=== PATIENT | female | born 1970 | race Caucasian/White ===

== ENCOUNTER 2023-06-16 13:33 | Outpatient (OUT) | payer SELFPAY ==
--- NOTE | 2023-06-16 | XR_ITS ---
The [address] [address] Patient Name: ANDREW LEVY MRN: [id number] date: 1970 Sex: F Assigned Patient Location: Current Patient Location: Accession/Order Number: [id number] Exam Date: 06/16/2023 13:36 Report Date: 06/16/2023 16:44 At the request of: WOODY MENA Procedure: XR foot LT min 3V EXAM: XR foot LT min 3V HISTORY: LEFT FOOT PAIN COMPARISON: None. TECHNIQUE: 3 views of the left foot were obtained. FINDINGS/IMPRESSION: 1. There is an acute minimally displaced fracture at the distal diaphysis of the third metatarsal bone. 2. There is subchondral erosions at the second metatarsophalangeal joint and at the third, fourth and fifth proximal interphalangeal joints. This has appearance of psoriatic arthritis. Clinical correlation is recommended. 3. Mild to moderate polyarticular osteoarthritis. Electronically authenticated by: NICHOLE RENDON Date: 06/16/2023 16:44
== END 2023-06-16 13:34 | disposition home or self-care (01) ==
LOC: EC 13:33
PROVIDERS: Visit Provider Physician Assistant
DX: M79.672 Pain in left foot (principal); S92.332A Displaced fracture of third metatarsal bone, left foot, initial encounter for closed fracture
CPT/HCPCS: 73630

== ENCOUNTER 2025-04-17 08:44 | Outpatient (OUT) | payer OTHER, SELFPAY ==
--- OUTSIDE RECORDS SUMMARY | 2024-07-18 06:45 | XMS_ITS ---
Author Organization [facility] es Address [address] [place] [address] Care Team Providers Care Feed Weigher Name Role Phone Alexandra Morales Primary Care Provider Unavailabl e XXXMorris-Pat, Macey Unavailable [phone] Hilary Lemus Unavailable [phone] REASON FOR VISIT FU Encounters Encounter Location Date Provider Diagnosis [facility] [address] [place] [address] 07/18/2024 Hilary Lemus Plan Of Treatment No Information Progress Notes * ANDREW NOLEN SDOB:0 1970 (54 yo F)Acc No.[id number]:07/18/2024 Behavioral Health Patient: Veronica BRADY ANDREW Lucille :?Hilary LemusDOB:1970???Age:53 Y???Sex:Female Date:07/18/2024Phone:[phone]:[address] [facility] [place], [id number]:Alexandra Morales Subjective: * Chief Complaints: * B H FU Billing Information: * Procedure Codes: * Electronic signature of DUYEN Castillo on 04/17/2025 at 08:46 AM ESTSign off status: Pending * Provider: Genevieve Lemus Date: 0 07/18/2024 Generated for Printing/Faxing/eTransmitting on:?04/17/2025 08:46 AM EST
--- OUTSIDE RECORDS SUMMARY | 2024-11-06 04:15 | XMS_ITS ---
Author Organization The [facility] in [place] Address [address] [place] [address] Care Team Providers Care Assistant Sales Manager Name Role Phone Gama East DO Primary Care Provider Unavailabl e Provider, Radiology Unavailable [phone] Encounters Encounter Location Date Provider Diagnosis Radiology [address] [address] 11/06/2024 Radiology Provider Plan Of Treatment No Information Progress Notes * Kristan LEVY SDOB:[birth year] (54 yo F)Acc No.[id number]:11/06/2024 UNLOCKED PROGRESS NOTE Progress Note Patient: Mark LIUKristan Lucille :?Radiology ProviderDOB:1970???Age:54 Y ???Sex:FemaleDate:11/06/2024External Visit ID:[id number]:[phone] Address:[address] [id number]:Kannan Davis Out:09:14 AM EST Subjective: * Chief Complaints: * * Active Problem List M20.22 Hallux rigidus, left foot Modified On:06/16/2023W/U Status:kdhmzrgcnV07.079Primary osteoarthritis, unspecified ankle and foot Modified On:06/16/2023/U Status:rohsbkefyN66.42Other hammer toe(s) (acquired), left foot Modified On:04/25/2024W/U Status:kcxywaefpO21.12Hallux valgus (acquired), left foot Modified On:04/25/2024 Status:rhrvvcpivH95.275Osteonecrosis due to previous trauma, left foot Modified On:04/25/2024 Status:spfakjzyaO49.72Freibergs disease, left Modified On:06/07/2024 Status:sonvcjyhgY04.572Contracture, left ankle Modified On:09/25/2024 Status:withcitryO17.575Contracture, left foot Modified On:09/25/2024 Status:uclhvmmwjU21.875Other osteonecrosis, left foot Modified On:10/15/2024 Status:mtwmblzadC62.072Primary osteoarthritis, left ankle and foot Modified On:10/15/2024 Status:dgmrgegxzU61.572Muscle wasting and atrophy, not elsewhere classified, left ankle and foot Modified On:10/15/2024 Status:hjasbchbbF41.325KNondisplaced fracture of second metatarsal bone of left foot with nonunion Modified On:02/19/2025 Status:ylfdmthlgD61.9Elevated parathyroid hormone Modified On:02/28/2025 Status:confirmed * Medical History: Objective: * Vitals: Assessment: Plan: * Treatment: * * Electronic signature of Radiology Provider on 04/17/2025 at 08:46 AM ESTSign off status: PendingVisit Status:?CHK (Check Out) * Provider: R adiology Provider Date: 0 11/06/2024 Generated for Printing/Faxing/eTransmitting on:?04/17/2025 08:46 AM EST
--- OUTSIDE RECORDS SUMMARY | 2025-01-15 04:40 | XMS_ITS ---
Author Organization The [facility] in [place] Address [address] [place] [address] Care Team Providers Care Glue Drier Operator Name Role Phone Gama East DO Primary Care Provider Unavailabl e Provider, Radiology Unavailable [phone] Encounters Encounter Location Date Provider Diagnosis Radiology [address] [address] 01/15/2025 Radiology Provider Plan Of Treatment No Information Progress Notes * Kristan LEVY SDOB:[birth year] (54 yo F)Acc No.[id number]:01/15/2025 UNLOCKED PROGRESS NOTE Progress Note Patient: Mark LIUKristan Lucille :?Radiology ProviderDOB:1970???Age:54 Y ???Sex:FemaleDate:01/15/2025External Visit ID:[id number]:[phone] Address:[address] [id number]:Gama East DO Subjective: * Chief Complaints: * * Active Problem List M20.22 Hallux rigidus, left foot Modified On:06/16/2023W/U Status:rdaoampchZ78.079Primary osteoarthritis, unspecified ankle and foot Modified On:06/16/2023W/U Status:adpfjfyxnB50.42Other hammer toe(s) (acquired), left foot Modified On:04/25/2024W/U Status:rywsbjcekO89.12Hallux valgus (acquired), left foot Modified On:04/25/2024 Status:lipiohoekP89.275Osteonecrosis due to previous trauma, left foot Modified On:04/25/2024 Status:jfeeublanR52.72Freibergs disease, left Modified On:06/07/2024 Status:kquucjrdnS15.572Contracture, left ankle Modified On:09/25/2024 Status:gslcugvcmC79.575Contracture, left foot Modified On:09/25/2024 Status:ythgredmxS72.875Other osteonecrosis, left foot Modified On:10/15/2024 Status:cjouwbxzwR13.072Primary osteoarthritis, left ankle and foot Modified On:10/15/2024 Status:vzkruvmfrF11.572Muscle wasting and atrophy, not elsewhere classified, left ankle and foot Modified On:10/15/2024 Status:ydqggbkzvZ11.325KNondisplaced fracture of second metatarsal bone of left foot with nonunion Modified On:02/19/2025 Status:zvuilsqejK10.9Elevated parathyroid hormone Modified On:02/28/2025 Status:confirmed * Medical History: Objective: * Vitals: Assessment: Plan: * Treatment: * * Electronic signature of Radiology Provider on 04/17/2025 at 08:46 AM ESTSign off status: PendingVisit Status:?CHK (Check Out) * Provider: R adiology Provider Date: 0 01/15/2025 Generated for Printing/Faxing/eTransmitting on:?04/17/2025 08:46 AM EST
--- OUTSIDE RECORDS SUMMARY | 2025-01-15 04:40 | XMS_ITS ---
Author Organization The [facility] in [place] Address [address] [place] [address] Care Team Providers Care Traffic Maintenance Supervisor Name Role Phone Gama East DO Primary Care Provider Unavailabl e Provider, Radiology Unavailable [phone] Encounters Encounter Location Date Provider Diagnosis Radiology [address] [address] 01/15/2025 Radiology Provider Plan Of Treatment No Information Progress Notes * Kristan LEVY SDOB:[birth year] (54 yo F)Acc No.[id number]:01/15/2025 UNLOCKED PROGRESS NOTE Progress Note Patient: Mark LIUKristan Lucille :?Radiology ProviderDOB:1970???Age:54 Y ???Sex:FemaleDate:01/15/2025Phone:[phone]:[address] [id number]:Kannan Davis Out:09:42 AM EST Subjective: * Chief Complaints: * * Active Problem List M20.22 Hallux rigidus, left foot Modified On:06/16/2023W/U Status:yuzxyyipzY95.079Primary osteoarthritis, unspecified ankle and foot Modified On:06/16/2023W/U Status:sfbfqsibdS33.42Other hammer toe(s) (acquired), left foot Modified On:04/25/2024W/U Status:nyqwxnmatO97.12Hallux valgus (acquired), left foot Modified On:04/25/2024 Status:mzxtiiaceC55.275Osteonecrosis due to previous trauma, left foot Modified On:04/25/2024 Status:iuuwbifyrL11.72Freibergs disease, left Modified On:06/07/2024 Status:upmpjaenyL87.572Contracture, left ankle Modified On:09/25/2024 Status:zlvukrgfiC96.575Contracture, left foot Modified On:09/25/2024 Status:gefekrcneI00.875Other osteonecrosis, left foot Modified On:10/15/2024 Status:yiszsdbiwN05.072Primary osteoarthritis, left ankle and foot Modified On:10/15/2024 Status:uwzrzywroV23.572Muscle wasting and atrophy, not elsewhere classified, left ankle and foot Modified On:10/15/2024 Status:robqhqhyjL59.325KNondisplaced fracture of second metatarsal bone of left foot with nonunion Modified On:02/19/2025 Status:hglyplaleB61.9Elevated parathyroid hormone Modified On:02/28/2025 Status:confirmed * Medical History: Objective: * Vitals: Assessment: Plan: * Treatment: * * Electronic signature of Radiology Provider on 04/17/2025 at 08:46 AM ESTSign off status: PendingVisit Status:?CHK (Check Out) * Provider: R adiology Provider Date: 0 01/15/2025 Generated for Printing/Faxing/eTransmitting on:?04/17/2025 08:46 AM EST
--- OUTSIDE RECORDS SUMMARY | 2025-02-05 05:15 | XMS_ITS ---
Author Organization The [facility] in [place] Address [address] [place] [address] Care Team Providers Care Indigo Mixer Name Role Phone Gama East DO Primary Care Provider Unavailabl Danish Neri Unavailable [phone] REASON FOR VISIT Go over CT Scan from [facility] Encounters Encounter Location Date Provider Diagnosis [facility] [address] [place] [address] 02/05/2025 Danish Carrillo Plan Of Treatment No Information Progress Notes * Kristan HUTTON SDOB:[birth year] (54 yo F)Acc No.[id number]:02/05/2025 UNLOCKED PROGRESS NOTE Follow Up Patient: Mark LIU Kristan Lucille :?ONEAL EdmondsMDOB:1970???Age:54 Y ???Sex:FemaleDate:02/05/2025Phone:[phone]:[address] [id number]:Gama East DO Subjective: * Chief Complaints: * [address] Scan from [facility]. * Medical History: Objective: * Vitals: Assessment: Plan: * Treatment: * * Electronic signature of Danish Carrillo DPM, [id number] on 04/17/2025 at 08:47 AM ESTSign off status: PendingVisit Status:?R/S (Rescheduled) * Provider: Ran Carrillo DPM Date: 1 Generated for Printing/Faxing/eTransmitting on:?04/17/2025 08:47 AM EST
--- OUTSIDE RECORDS SUMMARY | 2025-02-12 05:45 | XMS_ITS ---
Author Organization The [facility] in [place] Address [address] [address] Care Team Providers Care Preparation Plant Supervisor Name Role Phone Gama East DO Primary Care Provider Unavailabl Danish Neri Unavailable [phone] REASON FOR VISIT Go over CT Scan from [facility] Encounters Encounter Location Date Provider Diagnosis [facility] [address] [place] [address] 02/12/2025 Danish Carrillo Plan Of Treatment No Information Progress Notes * Kristan HUTTON SDOB:[birth year] (54 yo F)Acc No.[id number]:02/12/2025 UNLOCKED PROGRESS NOTE Follow Up Patient: Mark LIU Kristan Lucille :?ONEAL EdmondsMDOB:1970???Age:54 Y ???Sex:FemaleDate:02/12/2025Phone:[phone]:[address] [id number]:Gama East DO Subjective: * Chief Complaints: * [address] Scan from [facility]. * Medical History: Objective: * Vitals: Assessment: Plan: * Treatment: * * Electronic signature of Danish Carrillo DPM, [id number] on 04/17/2025 at 08:47 AM ESTSign off status: PendingVisit Status:?R/S (Rescheduled) * Provider: Ran Carrillo DPM Date: 1 Generated for Printing/Faxing/eTransmitting on:?04/17/2025 08:47 AM EST
--- OUTSIDE RECORDS SUMMARY | 2025-02-19 06:45 | XMS_ITS ---
Author Organization The [facility] in [place] Address [address] [place] [address] Care Team Providers Care Enrollment Services Vice President Name Role Phone Gama East DO Primary Care Provider Unavailabl e Provider, Lab Unavailable [phone] REASON FOR VISIT cac Encounters Encounter Location Date Provider Diagnosis [facility] [address] [place] [address] 02/19/2025 Lab Provider Plan Of Treatment No Information Progress Notes * Kristan LEVY SDOB:[birth year] (54 yo F)Acc No.[id number]:02/19/2025 UNLOCKED PROGRESS NOTE Progress Note Patient: Kristan RAO :?Lab ProviderDOB:1970???Age:54 Y???Sex: FemaleDate:02/19/2025Phone:[phone]:[address] [id number]:Kannan Davis Out:11:47 AM EST Subjective: * Chief Complaints: * 1 . Cac. * Medical History: Objective: * Vitals: Assessment: Plan: * Treatment: * * Electronic signature of Lab Provider on 04/17/2025 at 08:46 AM ESTSign off status: PendingVisit Status:?CHK (Check Out) * Provider: Guanako mckeon Provider Date: 04/21/2024 Generated for Printing/Faxing/eTransmitting on:?04/17/2025 08:46 AM EST
--- OUTSIDE RECORDS SUMMARY | 2025-04-10 09:15 | XMS_ITS | Encounter Summary ---
Author Organization [facility] Address [address] [place] [address] Care Team Providers Care Safety Engineer Pressure Vessels Name Role Phone Gama East DO Primary Care Provider [phone] Reason for Visit * ReasonCommentsPrimary hyperparathyroidismDEXA results Encounter Details DateTypeDepartmentCare Team (Latest Contact Info)Gkslympjekn01/24/2025 9:15 AM ESTOffice Visit [facility] [address] [place] [address] Yrn Tolentino DO [address] [place] [place] [address] Osteopenia of right forearm (Primary Dx) Social History Tobacco UseTypesPacks/DayYears UsedDateSmoking Tobacco: NeverPassive Smoke Exposure: NeverSmokeless Tobacco: Never Tobacco Cessation:Counseling Given: Not Answered Alcohol UseStandard Drinks/WeekCommentsYes1 (1 standard drink = 0.6 oz pure alcohol)caffeine intake: 1-2 cups per dayAUDIT-CAnswerDate RecordedQ1: How often do you have a drink containing alcohol?Monthly or less05/09/2023Q2: How many drinks containing alcohol do you have on a typical day when you are drinking?1 or Q3: How often do you have six or more drinks on one occasion?Never 05/09/2023HQ-2AnswerDate RecordedPatient Health Questionnaire-2 Score0 4CommentsNoSex and Gender InformationValueDate RecordedSex Assigned at BirthNot on fileLegal XkxVuddat05/15/2023 8:23 PM EDTGender Identity Not on fileSexual OrientationNot on filedocumented as of this encounter Last Filed Vital Signs Vital SignReadingTime TakenCommentsBlood Pressure--Pulse--Temperature-- Respiratory Rate--Oxygen Saturation--Inhaled Oxygen Concentration--Xrvrzw21.4 kg (175 lb)04/10/2025 9:13 AM AGKWclrle683.7 cm (5' 8 )04/10/2025 9:13 AM ESTBody Mass Index26.6104/10/2025 9:13 AM ESTdocumented in this encounter Progress Notes * Yrn Tolentino DO - 04/10/2025 9:15 AM EST HPI Patient presents today following DEXA scanning. It shows she has mild osteopenia both from the femoral as well as radial testing sites. I made her aware of that. Relevant postoperative physical examination Unremarkable Assessment/plan Kristan was seen today for primary hyperparathyroidism. Diagnoses and all orders for this visit: Osteopenia of right forearm (Primary) Comments: again, I am not convinced this patient has primary hyperparathyroidism. She may have a fluctuating hyperactive gland. Orders: - PTH, intact; Future - Calcium; Future - Vitamin D 25 hydroxy Total; Future - PTH, intact - Calcium - Vitamin D 25 hydroxy Total At this point she does not meet criteria for parathyroidectomy. I am going do recheck her in 6 months with lab work. I have told her to start taking some pmhi-fgg-bujhply calcium. documented in this encounter Plan of Treatment DateTypeDepartmentCare Team (Latest Contact Info)Qnaixfhtahz98/01/2026 2:00 PM EDTOffice Visit [facility] [address] [place] [address] Yrn Tolentino DO [address] [place] [address] NameTypePriorityAssociated DiagnosesOrder SchedulePTH, intactLabRoutine Osteopenia of right forearm Expected: 10/09/2025 (Approximate), Expires: 04/10/2026alciumLabRoutine Osteopenia of right forearm Expected: 10/09/2025 (Approximate), Expires: 04/10/2026Vitamin D 25 hydroxy TotalLabRoutine Osteopenia of right forearm Expected: 10/09/2025 (Approximate), Expires: 04/10/2026documented as of this encounter Visit Diagnoses Diagnosis Osteopenia of right forearm- Primary documented in this encounter Care Teams Team MemberRelationshipSpecialtyStart DateEnd Date Gama East DO [address] [place] [address] PCP - General09/21/22documented as of this encounter
--- OUTSIDE RECORDS SUMMARY | 2025-04-15 11:47 | XMS_ITS | Continuity of Care Document ---
Author Organization [facility] Address [address] [place] [address] Phone Care Team Providers Care Fire Alarm Mechanic Name Role Phone Mast, Gama DO Primary Care Provider Yrn Tolentino DO Attending Provider [phone] Mast, Gama DO Attending Provider [phone] Care Teams Patient Care Team Team Status: Active Member Role/Relationship Status Dates Gama Mast , DO Primary Care Provider Active Visit Care Team Team Status: Inactive Member Role/Relationship Status Dates Gama Mast , DO Primary Care Provider Active Star t: March 20, 2025 End: March 20enjamin Murcek , DOAttending ProviderActiveStart: March 20, 2025 End: March 20, 2025 Visit Care Team Team Status: Inactive Member Role/Relationship Status Dates Gama Mast , DO Primary Care Provider Active Star t: March 20, 2025 End: March 20enjamin Murcek , DOAttending ProviderActiveStart: March 20, 2025 End: March 20, 2025 Visit Care Team Team Status: Inactive Member Role/Relationship Status Dates Gama Mast , DO Primary Care Provider Active Star t: March 22, 2025 End: March 22enjamin Murcek , DOAttending ProviderActiveStart: March 22, 2025 End: March 22, 2025 Visit Care Team Team Status: Inactive Member Role/Relationship Status Dates Gama Mast , DO Primary Care Provider Active Star t: April 08, 2025 End: April 08leidykarla Tolentino DOAttending ProviderActiveStart: April 08, 2025 End: April 08, 2025 Patient Care Team Team Status: Inactive Member Role/Relationship Status Dates Gama East DO Primary Care Provider Active Star t: April 15, 2025 End: April 15, 2025Gama East DOAttending ProviderActiveStart: April 15, 2025 End: April 15, 2025 Chief Complaint and Reason for Visit Chief Complaint Admit Date E21.0 March 20, 2025 8 :05am E21.0 March 20, 2025 9 :34am E21.0 March 22, 2025 2 :00pm hyperparathyroidism April 08, 2025 10:35am Hormone issues April 15, 2025 3:22pm Reason for Visit Admit Date Obesity (BMI 30-39.9) April 15 3:22pm Right shoulder strain April 15 3:22pm Allergies, Adverse Reactions, Alerts Allergen Type Severity Reaction Last Updated Verified Status No Known Allergies Allergy Unknown April 15, 2025 3:29pmYesActive Social History Smoking Status Status Start Date End Date Date of Observa tion Never smoked tobacco (finding) June 19, 2024 12:42pm Observation Status Observation Response Date of Response Legal Sex [facility] (finding) [facility] 1970 Family History Relationship Condition Age at Onset Recorded Date/T eloina father Heart disease Unknown family memberDeceasedUnknownmotherHeart diseaseUnknown Problems Active Problems Problem Diagnosis/Recorded Date Onset Date Stat PTSD (post-traumatic stress disorder) January 06, 2024 11:37am Unknown Active Encounter for immunization March 12, 2024 9:21am Unknown Active Strain of lumbar region January 28, 2017 12:55pm Unk nown Active Acute maxillary sinusitis July 25, 2023 10:10am Unkn own Active Upper respiratory infection 2024 8:15am Unkn own Active Dog bite January 05, 2021 11:15am Unknown Active Anxiety January 05, 2021 10:49am Unknown Active BMI 25.0-25.9,adult July 20, 2024 8:16am Unknown Active Anxiety and depression January 06, 2024 11:37am Un known Active Left foot pain March 30, 2024 9:05am Unknown Active Right shoulder strain April 15, 2025 3:58pm Unkno wn Active Fibula fracture January 17, 2022 3:11pm Unknown Active Obesity (BMI 30-39.9) April 15, 2025 3:58pm Unkno wn Active Inactive/Resolved Problems Problem Diagnosis/Recorded Date Onset Date Stat us Dog bite June 19, 2024 2:56pm Unknown Resol rosalina Medications Medication Status Dose Units Route Directions Qty Days Refills S tart Date Stop Date End Date Reason(s) Instructions Adherence Semaglutide (Ozempic) 0.25 mg or 0.5 mg (2 mg/3 mL) pe n injector Discontinued 0 .ROUTE.TCYWOMQ61Dbg2023 5:55amMay 2023 2:41pmINJECT 0.5 MG SUBCUTANEOUS ONCE WEEKLYSemaglutide (Ozempic) 0.25 mg or 0.5 mg (2 mg/3 mL) pen injectorDiscontinued0.ROUTE.2023 2:41pmSeptember 02, 2023 7:09am INJECT 0.5 MG SUBCUTANEOUS ONCE WEEKLYSemaglutide 1 mg/dose (4 mg/3 mL) pen kjaizyadCsicoqhsfhtt9BA.ROUTEevery 2023 7:08amAugust 2023 4:53pm1 mg every week;Venlafaxine 150 mg capsule,extended release 24hr Discontinued0.ROUTE.IACZNBE756Utnz2023 8:41amNoveer 2023 9:15am TAKE 1 CAPSULE BY MOUTH EVERY DAY WITH FOODVenlafaxine 75 mg capsule,extended release 03rbTjfxfxjagbow6.ROUTE.RBWDNPP619Gida2023 7:02amDecember 2023 7:26amTAKE 1 CAPSULE BY MOUTH EVERY DAY WITH FOODBupropion Hcl 300 mg tablet extended release 24 hrDiscontinued0.ROUTE.2023 7:02amDecemb2023 7:26amTAKE 1 TABLET BY MOUTH EVERY DAY IN THE MORNING Semaglutide 1 mg/dose (4 mg/3 mL) pen bpekgqcdYnqnlqmmfnrb0GF.ROUTEevery December 05, 2023 4:53pmSept2023 11:39am1 mg every week;Prazosin 1 mg capsuleDiscontinued0.ROUTE.BXQNDDV508Zibflxy 2023 5:44amNovember 2023 9:15amTAKE 1 CAPSULE BY MOUTH EVERY DAY AT BEDTIMEVenlafaxine 75 mg capsule,extended release 99bbDufrmffrxsbj1.ROUTE.OHAYZQB268Emtwahwj2023 7:25amMarch 2024 7:11amTAKE 1 CAPSULE BY MOUTH EVERY DAY WITH FOOD Bupropion Hcl 300 mg tablet extended release 24 hrDiscontinued0.ROUTE.RMCZOMT217 March 22, 2024 7:25amMarch 2024 7:11amTAKE 1 TABLET BY MOUTH EVERY DAY IN THE MORNINGAlprazolam 0.25 mg tabletDiscontinued0.25MGPODaily as needed for bwzwktt97799Usabbqqp 9th, 2024 10:22amJune 2024 11:26amAnxiety Anxiety disorder, unspecifiedVenlafaxine 75 mg capsule,extended release 24hr Discontinued0.ROUTE.KMWYMUD564XfsyhJune 28, 2024 7:11amSept2024 7:24am TAKE 1 CAPSULE BY MOUTH EVERY DAY WITH FOODBupropion Hcl 300 mg tablet extended release 24 hrDiscontinued0.ROUTE.INFEQKD135PcfcoJune 28, 2024 7:11amSeptember 2024 7:24amTAKE 1 TABLET BY MOUTH EVERY DAY IN THE MORNINGPrazosin 2 mg capsule Ljeodimzyojd3TKSCHcaeu at igckzyh460Ife 2024 5:53amNovember 2024 11:15amVenlafaxine 150 mg capsule,extended release 81qtQrrzcmxjsdhd729ZAOJAutsh 90June 2024 7:33amDecember 2024 6:53amBupropion Hcl 300 mg tablet extended release 24 hrActive0.ROUTE.TJDNIHU932Uidpzdbww2024 7:23amTAKE 1 TABLET BY MOUTH EVERY DAY IN THE MORNINGComplies with drug therapyVenlafaxine 75 mg capsule,extended release 03gqQkvwux2.ROUTE.CHDTESO213Ymezjvmii2024 7:23amTAKE 1 CAPSULE BY MOUTH EVERY DAY WITH FOODComplies with drug therapy Prazosin 2 mg zffufqkMbkltz3GKTSYlxhg at fuusrhj693Qlphihun 2024 11:15am Complies with drug therapyVenlafaxine 150 mg capsule,extended release 24hrActive 101PJFPPefwh343Tfbubnsd 2024 6:53amComplies with drug therapyAlprazolam (Xanax) 0.5 mg tabletDiscontinued0.5MGPODaily at bedtimeJuly 2017 11:00pm July 29, 2018 7:02pmBupropion Hcl 300 mg tablet extended release 24 hr Dwoqsxgtiowu578MBLTUqrqrGtqz 2017 11:00pmAugust 2023 7:03amMagnesium Hydroxide (Milk Of Magnesia) 400 mg/5 mL QzusgallpmQygksltfuzpn7DZUYSGEsjim as needed for ConstipationJuly 2017 11:00[facility] 2023 9:46amFerrous Sulfate 325 mg (65 mg iron) xonyslBwdkkkajteto4PUJTBUmmaf dailyJuly 2017 11:00[facility] 20[facility] 8:55amFolic Acid 1 mg ooarewMjurnbrqzmgd7GGFGUtmsv times dailyJuly 2017 11:00[facility] 2023 9:40amOxycodone- Acetaminophen (Percocet) 5-325 mg tabletDiscontinued1 - 2CDWULU7O as needed for thva797Fxun 2017[facility] 2023 9:39amOther acute postprocedural painMay take 1-2 tabs q 6 hours prn painIbuprofen 800 mg izscrdVzmmsselzegf587PLERNsxwu times cvlfs219Aaeli 2018 11:00pm[facility] 2023 9:46amAmoxicillin-Pot Clavulanate (Augmentin) 875-125 mg svuzjjThpjzdnutmjw4LJJJJWleag cnzct75796 January 04, 2021 11:00pmOhio[facility] 2023 9:34amAmoxicillin-Pot Clavulanate 875-125 mg tkttgdNfteaxmcofks1HTPHKEwshh clcam593Whazg 2024 12:00amApril 2024 7:48amHydrocodone-Acetaminophen 5-325 mg zinoljEsxyyfkdlfbm8IWYHSWZSKG 4-6 HOURS as needed for hsfl105Tdvgy pril 2024 7:49amDog bite Bitten by dog, initial gesffomjyAfknfeux-Arc-Iofphoe Fumarate (Multi Vitamin) 9 mg iron/15 mL LiquidDiscontinuedPODailyOctober 2016 11:00pmOctober 2016 11:46hwGrladmribbrz-Pkop-Cmgfi Acid (Multi-Day With Iron) 18-400 mg-mcg NgvoioArspdq7BNZVFWnxqzZjrkwvh 2016 11:00pmComplies with drug therapy Cyclobenzaprine 10 mg jsyyymZajyiduautri76EFCJZbopk times zxlfu096Tyxwldo 12th, 2017 11:00pmMar 2023 9:46amOxycodone-Acetaminophen (Percocet) 5-325 mg zayefiKwwumtmquzqt1BKOGCIEWCL 4-6 HOURS as needed for nypw308Dfbfkpm 2016October 19, 2017 8:43amNaproxen (Naprosyn) 500 mg vimjyiAnjqkpsncicd823ZJJXUeakw efsgg677Ughvffw 12th, 2017 11:00pmMar 2023 9:46amadminister with food or milkOxycodone-Acetaminophen (Endocet) 5-325 mg ldbljlMqjxxhqrckos6SOHKKT6M as needed for xvbl4611Vincdmj 2nd, 2022March 2023 9:39amFracture of fibula Amoxicillin-Pot Clavulanate 875-125 mg cbzcisBlvjqxpiuvgq3ARDJHPureb tyhqr566 July 24, 2023 11:00pmSeptember 2023 8:56amPrazosin 1 mg capsule Fecncmmqppwk0IPFUDxoih at fseezon897Jlgnmvshj 2023 11:00pmSeptember 2023 11:49amDiclofenac Sodium (Voltaren Arthritis Pain) 1 % maiKdkbax2FACJJRC .COMPLEX as needed for tvvv6451Xyoibmvpf 20th, 2024 11:46amApply 1-2 grams to the affected Externally 4-5 times a day topically prn painComplies with drug therapyAlprazolam 0.25 mg tabletDiscontinued0.25MGPODaily as needed for anxiety 71021Mqxiwtqta2023 11:48amDecember 2023 10:23amAnxiety Anxiety disorder, unspecifiedPrazosin 1 mg zryzkcdTmzagsqxwbqf4XWJETvqlh at tldimae332Gpfzokqpm 20th, 2024 11:49amOctober 2023 5:44amSemaglutide (Ozempic) 0.25 mg or 0.5 mg (2 mg/3 mL) pen injectorDiscontinuedMGSUBCUTMarch 12, 2024 12:00amNovember 2023 8:55amCholecalciferol (Vitamin D3) 25 mcg (1,000 unit) rfblsyoOpznbfvfdxnw24YHTOLQwyltXcdqmgfj 25th, 2024 12:00amApril 2024 7:49amAspirin 81 mg tablet,delayed release (DR/EC)Sdubrlbtoipg20IQOT DailyMarch 12, 2024 12:00amApril 2024 7:50amFreeTextSi tablet Orally Once a day; Note: Source Status: Not-Taking\PRN; Provider: Cruzito Malloy ( )Prazosin 2 mg vmybexxHymsbhrnpfqk2MFEPGtoyf at March 12, 2024 9:14amMay 2024 5:53amVenlafaxine 150 mg capsule,extended release 37mnZddgrvbcpujw200CLOHSpkve458Dfndotbx 25th, 2024 9:15amJune 2024 7:34amAlprazolam 0.25 mg tabletDiscontinued0.25MGPOMarch 2023 12:00amSept2023 9:40amFreeTextSig: TAKE 1 TABLET BY MOUTH ONCE A DAY NEEDED; Note: Source Status: Taking; Refills: 0; Qty: 20 Tablet; Provider: Cruzito Malloy ( )Venlafaxine 150 mg capsule,extended release 88xlFutwdomfeiyp883CZDISpiia 2023 12:00amJun2023 8:42am FreeTextSig: TAKE 1 CAPSULE BY MOUTH EVERY DAY WITH FOOD; Note: Source Status: Continue; Provider: Cruzito Malloy ( )Venlafaxine 75 mg capsule,extended release 47gmQoasdmibqwhv00FBLIEhgdnRhnxe 2023 12:00amJune 2023 7:02amFreeTextSi capsule with food Orally Once a day; Note: Source Status: Start; Refills: 1; Qty: 90Capsule; Provider: Cruzito Putnam Semaglutide (Ozempic) 0.25 mg or 0.5 mg (2 mg/3 mL) pen injectorDiscontinuedMG SUBCUTMarch 2023 12:00amMarch 2023 9:47amFreeTextSi.5 mg Subcutaneous once q week; Note: Source Status: Refill; Refills: 2; Provider: Facundo Malloy EScopolamine Base 1 mg over 3 days patch 3 dayDiscontinuedTRANSDERMLMar 2023 12:00amMarch 2023 9:52amFreeTextSi patch to skin behind the ear as needed Transdermal every 3 days; Note: Source Status: Not-Taking\PRN; Refills: 0; Provider: Cruzito Malloy EDiclofenac Sodium (Voltaren Arthritis Pain) 1 % gelDiscontinuedTOPICALMar 2023 12:00amSeptember 2023 9:40am FreeTextSig: Apply 1-2 grams to the affected Externally 4-5 times a day; Note: Source Status: TakingPRN; Refills: 3; Qty: 100 grams; Provider: Darrell Christensen II ( )Ascorbate Calcium (Vitamin C) 500 mg urrxtvIvswaf105QSJM DailyMarch 2023 12:00amComplies with drug therapyAlbuterol Sulfate 90 mcg/actuation HFA aerosol urfsnjmGfygnrwpjcma4QSHHJTMHOORXSTRYVZI 4-6 HOURSMarch 2023 12:00amSeptember 2023 9:39amFreeTextSi puffs as needed Inhalation every 4-6 hours; Note: Source Status: TakingPRN; Refills:1; Qty: 1 inhaler; Provider: Flor AmberSemaglutide (Ozempic) 0.25 mg or 0.5 mg (2 mg/3 mL) pen injectorDiscontinued0.5MGSUBCUTevery weekMarch 2023 9:47amMay 2023 5:56amFreeTextSi.5 mg Subcutaneous once q week; Note: Source Status: Refill; Refills: 2; Provider: Cruzito Malloy EScopolamine Base 1 mg over 3 days patch 3 wkfYwierlwbsjlg3CVBOJSTAEUZXPBDOtlqg 72 buevp25Ofyty 2023 9:52amSept2023 9:40amFreeTextSi patch to skin behind the ear as needed Transdermal every 3 days; Note: Source Status: Not-Taking\PRN; Refills: 0; Provider: Cruzito Malloy EAlprazolam 0.25 mg tabletDiscontinued0.25MGPOas needed January 06, 2024 9:39amSept2023 11:49amFreeTextSig: TAKE 1 TABLET BY MOUTH ONCE A DAY NEEDED; Note: Source Status: Taking; Refills: 0; Q ty: 20 Tablet; Provider: rCuzito Malloy ( )Diclofenac Sodium (Voltaren Arthritis Pain) 1 % gelDiscontinuedTOPICALas neededSept2023 9:39am January 06, 2024 11:49amFreeTextSig: Apply 1-2 grams to the affected Externally 4-5 times a day; Note: Source Status: TakingPRN; Refills: 3; Qty: 100 grams; Provider: Darrell Christensen II ( )Semaglutide/NAM/MeCbl 0.3 mg/0.25 mLDiscontinued0.25MLSUBCUTevery zoul21Ijmv2024 11:00pmDecember 2024 3:29pmBuderer Drug Compounded Pre-filled Syringes using Semaglutide Base 0.3 mg/Niacinamide 0.25 mg and Methylcobalamin 1 mcg Dispense 1 mL - (Four 0.25 mL pre-filled syringes)Alprazolam 0.25 mg tablet Active0.25MGPODaily as needed for fnirouc70073Oaob 2nd, 2025 11:26amAnxiety Anxiety disorder, unspecifiedComplies with drug therapySemaglutide/NAM/MeCbl 0.3 mg/0.25 mLActive0.25MLSUBCUTevery orul67HrrqwwkuApril 15, 2025 3:59pmBuderer Drug Compounded Pre-filled Syringes using Semaglutide Base 0.3 mg/Niacinamide 0.25 mg and Methylcobalamin 1 mcg Dispense 1 mL - (Four 0.25 mL pre-filled syringes)Complies with drug therapy Immunizations Immunization Event Date Not Given Reason Dose Number Clinical Research Scientist Lot Number Reason(s) Given Vaccine Information Statement (VIS) Detail Administration Location COVID-19 mRNA, Comirnaty (Pfizer) June 30 COVID-19 mRNA, Comirnaty (Pfizer)July 28, 2020Influenza, seasonal, injectable, pfNovember [id number] [facility] Medical Equipment Procedures Procedure Date Performed Status NM*parathyroid SPECT* March 20, 2025 8:24am completed CT neck 4D parathyroid March 20, 2025 8:24am completed XR dexa axial skeleton April 08, 2025 10:36 am completed Relevant Diagnostic Tests and/or Laboratory Data Laboratory Results Test Collection Date/Time Result Date/Time Result Interpretation Reference Range Result Comment Performing Site Calcium Level March 20, 2025 9:48am March 20, 2025 10:57am 9.0 mg/dL 8.6-10.3FOhio[facility] [id number] [address] [address]Qjvgvucktoi Hormone (Intact)March 20, 2025 9:47amDece2024 11:14am71.9 pg/uL19-79EbinxnxekGreen [facility] [id number] [address] [address]Zapph Collection TimeDece2024 8:00amDecemb2024 4:18pm25 HoursGreen Cross Hospital Ctr [id number] [address] [facility] [address]Pzeow Total VolumeDece2024 8:00amDece2024 4:95fp7328 [facility] [id number] [address] [address]Eqgca Random CalciumDece2024 6:45amDecemb2024 7:07am2.2 mg/dLNot Estab.[facility] Calcium 24 HourDeceer 2024 6:45amDecember 2024 7:07am64 mg/24 hr0-320Performed at: [facility] LabRobert Ville [id number] [place], [place] [id number] Director: Caesar Olson PhD, Phone: [phone] Diagnostic Imaging Reports Author Paulie Chavarria [facility] HospitalAuthoredDesage memorial hospital 2024 9:26amReportDictated Date/TimeDictated ByStatusRadiology ReportDececopper springs hospital 2024 9:26amMaraguilar Chavarria II MDcompleteFisher[facility] [place] [address] [place] [address] CT Scan Report Signed Patient: Kristan Hutton MR#: [id number] : 1970 Acct:[id number] Age/Sex: 54 / F ADM Date: 5 Loc: [place] Room: Type: [facility] Attending Dr: Yrn Tolentino DO Copies to: Yrn Tolentino DO~ Ordering Provider: Yrn Tolentino DO Date of Service: 03/20/25 CT/CT neck 4D parathyroid: HYPERPARATHYROIDISM CT neck 4D parathyroid 03/20/2025 9:21 AM SIGNS AND SYMPTOMS: HYPERPARATHYROIDISM CONTRAST: 90 mL of intravenous Isovue-300 TECHNIQUE: Multidetector CT axial slices of the soft tissues of the neck were obtained with IV contrast. Sagittal and coronal reformats were reconstructed. CT was performed with one or more of the following dose reduction techniques: Automated exposure control, adjustment of the mA and/or kV according to patient size, or use of iterative reconstruction technique. COMPARISON: None FINDINGS: Soft tissues of the orbits are within normal limits. The soft tissues of the infratemporal fossa fossa structures show no acute abnormality. Mucosal surfaces of the nasopharynx, oropharynx, hypopharynx, glottic, and subglottic airways are grossly unremarkable. The parotid glands, submandibular, and the thyroid gland are within normal limits. There is a mildly enhancing nodule near the inferior pole of the left thyroid lobe measuring 9 x 7 x 11 mm in greatest dimension. This does not have the typical arterial enhancement of a parathyroid adenoma. An atypical parathyroid adenoma is not excluded. Correlation with nuclear medicine sestamibi parathyroid study May BE helpful if clinically indicated. The carotid and jugular circulations are within normal limits. The visualized lung parenchyma shows no acute pathology. No acute bony abnormalities are appreciated. Degenerative changes are noted in the cervical spine at C5-C6 and C6-C7. The skull base, craniocervical junction, atlantoaxial joints are within normal limits. The paranasal sinuses are within normal limits. CT/CT neck 4D parathyroid IMPRESSION: There is a mildly enhancing nodule near the inferior pole of the left thyroid lobe measuring 9 x 7 x 11 mm in greatest dimension. This does not have the typical arterial enhancement of a parathyroid adenoma. An atypical parathyroid adenoma is not excluded. Correlation with nuclear medicine sestamibi parathyroid study May BE helpful if clinically indicated. No mass or abnormal enhancement is noted otherwise. Impression dictated by: Paulie Chavarria M.D. 03/20/2025 9:43 AM Dictation Location: [place] [address] Transcribed By: [facility] 03/20/25 0943 Dictated By: Paulie Chavarria II, MD 03/20/25 0926 Signed By: <Electronically signed by Paulie Chavarria II, MD in [place]> 03/20/25 0943 Author Paulie Chavarria [facility] HospitalAuthoredDesage memorial hospital 2024 1:05pmReportDictated Date/TimeDictated ByStatusRadiology ReportDesage memorial hospital 2024 1:05pmPaulie Chavarria II [facility] [place] [address] [place] [address] Nuclear Medicine Report Signed Patient: Kristan Hutton MR#: [id number] : 1970 Acct:[id number] Age/Sex: 54 / F ADM Date: 5 Loc: [place] Room: Type: [facility] Attending Dr: Yrn Tolentino DO Copies to: DO Paulie Beatty II, MD~ Ordering Provider: Yrn Tolentino DO Date of Service: 03/20/25 NM/NM*parathyroid SPECT*: HYPERPARATHYROIDISM NM*parathyroid SPECT* 03/20/2025 10:55 AM SIGNS AND SYMPTOMS: HYPERPARATHYROIDISM PROTOCOL: Scintigraphic images of the neck were obtained 15 minutes and 2 hours after intravenous radiotracer administration. SPECT images were performed with reconstructions in axial, sagittal, coronal, and 3-D planes COMPARISON: 03/20/2025 RADIOPHARMACEUTICAL: 22.0 mCi of intravenous technetium 99m sestamibi FINDINGS: Scintigraphic images demonstrate relatively symmetric radiotracer accumulation within the thyroid. No persistent abnormal radiotracer attenuation is noted on delayed imaging to suggest the presence of a parathyroid adenoma. There is physiologic radiotracer accumulation within the salivary glands. NM/NM*parathyroid SPECT* IMPRESSION: No persistent abnormal radiotracer attenuation is noted on delayed imaging to suggest the presence of a parathyroid adenoma. Impression dictated by: Paulie Chavarria M.D. 03/20/2025 1:10 PM Dictation Location: [place] [address] Transcribed By: [facility] 03/20/25 1310 Dictated By: Paulie Chavarria II, MD 03/20/25 1305 Signed By: <Electronically signed by Paulie Chavarria II, MD in [place]> 03/20/25 1310 Vital Signs Vital Reading Result Reference Range Collection Date/Time Height 68 [in_i] April 15, 2025 3:12wgRrmjqm10.92 kgDecember 2024 3:31pmBody Acgquhhohlz59.7 [degF]97.6-99.0December 2024 3:31pmHeart Rate81 /lbx10-257 April 15, 2025 3:31pmRespiratory rate18 /bqp29-23Ktznjnmt 2024 3:31pm Oxygen saturation by Pulse swoynluq57 %95-100December 2024 3:31pmBP Egzxrpkb568 mm[Hg]100-140December 2024 3:31pmBP Flobylsuu51 mm[Hg]60-100 April 15, 2025 3:31pmBMI (Body Mass Index)30.1 kg/o7Aphpyqvm 2024 3:31pm Advance Directives Advance Directive Response Recorded Date/ Time Advance Directives No January 28, 2017 12:18pm Insurance Providers Guarantor Kristan Hutton Address [address] [place] [address]Intdrjf Info.Home Phone: Payer Group Member ID Coverage Type Subscriber Relationship to Subscriber Effective Date Expiration Date [facility] [id number] S [place] Id: [id number] [address] [place] [address] Home Phone: Email: [email or web address] Medicaid [facility] [id number] S [place] Id: [id number] [address] [place] [address] Home Phone: Email: [email or web address] Id: [id number] Taylor , M Id: [id number] [address] [place] [address] Home Phone: [facility] [id number] S [place] Id: [id number] [address] [place] [address] Home Phone: Email: [email or web address] Encounters Encounter Location(s) Arrival/Admit Date Discharge/Departure Date Discharge/Departure Disposition Provider(s) Departed [facility] March 20, 2025 8:05am March 20, 2025 8:06am Discharged to home care or self care (routine discharge) Yrn Tolentino DO Departed Clinical -Lab [place] March 20, 2025 9:34am March 20, 2025 9:35am Discharged to home care or self care (routine discharge) Yrn Tolentino DO Departed Clinical [facility] [place] March 22, 2025 2:00pm March 22, 2025 2:01pm Discharged to home care or self care (routine discharge) Yrn Tolentino DO Departed [facility] [place] [facility] April 08, 2025 10:35am April 08, 2025 10:36am Discharged to home care or self care (routine discharge) Yrn Tolentino , DO Departed Physician/ Provider Office [facility] Family Medicine Left Hand April 15, 2025 3:22pm April 15, 2025 4:46pm Discharged to home care or self care (routine discharge) Gama East , DO Recent Diagnosis Onset Date Admit Date Obesity (BMI 30-39.9) Unknown March 192024 3:22pm Right shoulder strain Unknown March 192024 3:22pm Assessments Diagnosis Onset Date Resolution Status Admit Date Obesity (BMI 30-39.9) acuteDeceer 2024 3:22pmRight shoulder strainacuteDececopper springs hospital 2024 3:22pm Plan of Treatment Author Gama East [facility] HospitalAuthoSelect [facility] 2024 4:01pmI think she likely has strained her right rotator cuff from her recent fall on the ice. We reviewed conservative treatment. I encouraged her to apply ice, use zgsd-mzm-ispujwd Aleve 1-2 tabs 1-2 times daily, and we reviewed range of motion exercises for her to do at home. She will return to recheck this in a month. If symptoms do not improve, consider physical therapy and/or imaging studies. She responded well to semaglutide in the past, and her weight has increased significantly since she discontinued it. I will restart 0.3 mg weekly, potential medication side effects reviewed. Recheck this in a month. Future Tests Future scheduled test information is unavailable Pending Tests Pending diagnostic test information is unavailable Future Visits Future appointment information is unavailable Future Procedures Future procedure information is unavailable Future Medications Future medication information is unavailable Patient Instructions Patient instructions are unavailable
--- OUTSIDE RECORDS SUMMARY | 2025-04-17 08:46 | XMS_ITS | Clinical Summary ---
Author Organization [facility] Address [address] [place] [address] Care Team Providers Care Diagnostic Radiologic Technologist Name Role Phone Macey Flores AMADO Primary Care Provider [phone] Allergies No known active allergies Medications MedicationSigDispense QuantityRefillsLast FilledStart DateEnd DateStatus buPROPion XL (WELLBUTRIN XL) 300 mg 24 hr tablet Take 150 mg by mouth once daily. Active MULTIVITAMIN ORAL Active ascorbic acid (VITAMIN C ORAL) Take by mouth.Active cholecalciferol, Vitamin D3, (VITAMIN D3) 50,000 unit cap capsule Take 50,000 Units by mouth one time a week.Active niacin 1,000 mg TbER Take by mouth.Active ferrous sulfate (IRON ORAL) Take by mouth.Active amitriptyline (ELAVIL) 10 mg tablet Indications:Nonintractable headache, unspecified chronicity pattern, unspecified headache typeTAKE 1 TABLET BY MOUTH EVERYDAY AT BEDTIME 30 tablet Active Active Problems ProblemNoted DateDiagnosed VvulGzlsqujc89/13/2020Mixed anxiety and depressive /13/2020Vitamin D fvqhsamscr88/13/2020Benign neoplasm of right choroid 08/03/2011Carpal tunnel syndrome of right wristAnemia Assessment & Plan (07/06/2019 2:42 PM EDT): Assessment: takes med daily, monitored per PCP Heart murmur Assessment & Plan (07/06/2019 2:43 PM EDT): Assessment: patient stated she has had for years, monitored per PCP Family History Medical HistoryRelationCommentsmemory problemsMotherRelationStatusCommentsChild 1AliveChild 2DeceasedMotherAlive Social History Tobacco UseTypesPacks/DayYears UsedDateSmoking Tobacco: NeverSmokeless Tobacco: NeverAlcohol UseStandard Drinks/WeekCommentsYes0 (1 standard drink = 0.6 oz pure alcohol)AUDIT-CAnswerDate RecordedQ1: How often do you have a drink containing alcohol?2-4 times a month07/06/2019Q2: How many drinks containing alcohol do you have on a typical day when you are drinking?3 or 403Frequency of Binge DrinkingNot on file07/06/2019PHQ-2AnswerDate RecordedPHQ-2 iwziv991 Exercise Vital SignAnswerDate RecordedOn average, how many days per week do you engage in moderate to strenuous exercise (like a brisk walk)?1 day12/11/2021 Minutes of Exercise per SessionNot on file12/11/2021rea Deprivation IndexAnswer Date RecordedNational Score (1-100), lower number is lower swjd382509/23/2022State Score (1-10), lower number is lower ffef3473Data from: https://www.neighborhoodatlas.[facility].edu/. Last address used for buciaggdywp[address]3CommentsNoSex and Gender Information ValueDate RecordedSex Assigned at LfvvsLiqayo59/20/2023 12:37 PM EDTLegal Sex Ikqzkt8503/19/2012 8:49 AM ESTGender BwzwicgsJbnlfr50/20/2023 12:37 PM EDTSexual NghkiokhvfoDssyxafg73/20/2023 12:37 PM EDTOccupationIndustryJob Start DateJob End DaterestaurantNot on fileNot on fileNot on file Last Filed Vital Signs Vital SignReadingTime TakenCommentsBlood Dblrxwrp745/8707/10/2019 12:35 PM EDT Tuhtf393807/10/2019 12:35 PM RGNQzgxklzfgxb74.3 ??C (97.3 ??F)07/10/2019 12:35 PM EDTRespiratory Yhgo059807/10/2019 12:35 PM EDTOxygen Jlbvasmfbf93%07/10/2019 12:35 PM EDTInhaled Oxygen Concentration--Tnswbc91.2 kg (174 lb 11.2 oz)07/06/2019 1:11 PM EWEDvjgwl448.8 cm (5' 10 )07/06/2019 1:11 PM EDTBody Mass Index25.07 07/06/2019 1:11 PM EDT Plan of Treatment Health MaintenanceDue DateLast DoneCommentsAnxiety Ojrfjvqvp03/01/1990Depression Bxvovyyux36/01/1990HIV Dkitvmzhk32/01/1990Hepatitis C Efvirclmc80/01/1990 DTaP,Tdap,Td Vaccine (1 - Tdap)09/16/1990Hepatitis B Vaccine (1 of 3 - 19+ 3- dose series)09/16/1990Cervical Cancer Jjsqodxzm23/01/1993Mammogram Screening 2011CT Zkckxwelzvpt02/01/2017Cologuard (FIT-DNA)09/16/2016Colonoscopy 09/16/2016Colorectal Cancer Kpwhaulhu74/01/2017Fecal Occult Blood09/16/2016Lipid Smsfbqehu92/01/9996Ysikmfheubywu42/01/2017Pneumococcal Vaccine: 50+ (1 of 1 - PCV)09/16/2021hingrix Vaccine (1 of 2)2Diabetes Cogvyjnyn20/11/2022 12/27/2018Covid-19 Vaccine (1 - 2024- season)2024Influenza Vaccine (#1) 2024RSV Vaccine (1 - 1-dose 75+ series)09/16/2046 Procedures Procedure NamePriorityDate/TimeAssociated DiagnosisCommentsBASIC METABOLIC PANEL Nxdhuul3712/27/2018 3:31 PM EDT Numbness and tingling of right arm from Last 3 Months or Most Recently Relevant to Health Maintenance Results * BASIC METABOLIC PNL (12/27/2018 3:31 PM EDT)ComponentValueRef RangeTest Method Analysis TimePerformed AtPathologist TtetkuakoFoutnxb3229 - 100 mg/dL 12/27/2018 4:58 PM [facility] HiypykppLIQ177 - 25 mg/dL12/27/2018 4:58 PM EDT [facility]Creatinine0.950.70 - 1.40 mg/dL12/27/2018 4:58 PM [facility]1132 - 148 mmol/L12/27/2018 4:58 PM [facility] Potassium4.33.5 - 5.0 mmol/L12/27/2018 4:58 PM [facility] HospitalChloride102 98 - 110 mmol/L12/27/2018 4:58 PM [facility] HospitalCO22623 - 32 mmol/L 12/27/2018 4:58 PM [facility] HospitalAnion Bks615 - 18 mmol/L12/27/2018 4:58 PM [facility] HospitalCalcium9.58.5 - 10.5 mg/dL12/27/2018 4:58 PM EDT [facility] IncurableseGFR->60>60012/27/2018 4:58 PM [facility] HospitaleGFR-All Other Races>60>60 .12/27/2018 4:58 PM [facility] Specimen (Source)Anatomical Location / LateralityCollection Method / Volume Collection TimeReceived TimeBlood specimen (specimen)BLOOD SPECIMEN / Unknown 12/27/2018 3:31 PM EDT12/27/2018 3:32 PM EDT Narrative Authorizing ProviderResult TypeResult StatusJessica Davis MDLABORATORYFinal ResultPerforming OrganizationAddressCity/State/ZIP CodePhone Number [facility] [id number] [place] [address] [place] [address] from Last 3 Months or Most Recently Relevant to Health Maintenance Insurance Care Teams Team MemberRelationshipSpecialtyStart DateEnd Date Macey Flores CNP PCP - GeneralInternal Medicine11/20/18
--- OUTSIDE RECORDS SUMMARY | 2025-04-17 08:46 | XMS_ITS | Encounter Summary ---
Author Organization [facility] Address [address] [place] [address] Care Team Providers Care Tso Name Role Phone Gama East DO Primary Care Provider [phone] Encounter Details DateTypeDepartmentCare Team (Latest Contact Info)Xzjvvtkiycs02/24/2025Travel Social History Tobacco UseTypesPacks/DayYears UsedDateSmoking Tobacco: NeverPassive Smoke Exposure: NeverSmokeless Tobacco: NeverAlcohol UseStandard Drinks/WeekComments Yes1 (1 standard drink = 0.6 oz pure alcohol)caffeine intake: 1-2 cups per day AUDIT-CAnswerDate RecordedQ1: How often do you have a drink containing alcohol? Monthly or less05/09/2023Q2: How many drinks containing alcohol do you have on a typical day when you are drinking?1 or Q3: How often do you have six or more drinks on one occasion?Never4PHQ-2AnswerDate RecordedPatient Health Questionnaire-2 Mpxwc9904CommentsNoSex and Gender InformationValueDate RecordedSex Assigned at BirthNot on fileLegal SexFemale 06/30/2022 8:23 PM EDTGender IdentityNot on fileSexual OrientationNot on file documented as of this encounter Plan of Treatment DateTypeDepartmentCare Team (Latest Contact Info)Jevvvnuowpk77/01/2026 2:00 PM EDTOffice Visit [facility] [address] [place] [address] Yrn Tolentino, DO [address] [place] [address] documented as of this encounter Visit Diagnoses Not on filedocumented in this encounter Care Teams Team MemberRelationshipSpecialtyStart DateEnd Date Gama East DO [address] [address] PCP - General09/21/22documented as of this encounter
--- OUTSIDE RECORDS SUMMARY | 2025-04-17 08:46 | XMS_ITS | Encounter Summary ---
Author Organization [facility] Address [address] [place] [address] Care Team Providers Care Senior Fund Accountant Name Role Phone Gama East DO Primary Care Provider [phone] Encounter Details DateTypeDepartmentCare Team (Latest Contact Info)Cgawwaevfqx71/24/2025Bamboo flowsheet [facility] [address] [place] [address] Yrn Tolentino, [address] [place] [address] Social History Tobacco UseTypesPacks/DayYears UsedDateSmoking Tobacco: NeverPassive [...] drinks on one occasion?Never4PHQ-2AnswerDate RecordedPatient Health Questionnaire-2 Vulle5294CommentsNoSex and Gender InformationValueDate RecordedSex Assigned at BirthNot on fileLegal SexFemale 06/30/2022 8:23 PM EDTGender IdentityNot on fileSexual OrientationNot on file documented as of this encounter Plan of Treatment DateTypeDepartmentCare Team (Latest Contact Info)Qzloqwiwgxl49/01/2026 2:00 PM EDTOffice Visit [facility] [address] [place] [address] Yrn Tolentino DO [address] [place] [address] documented as of this encounter Visit Diagnoses Not on filedocumented in this encounter Care Teams Team MemberRelationshipSpecialtyStart DateEnd Date Gama East DO [address] [place] [address] PCP - General09/21/22documented as of this encounter
--- OUTSIDE RECORDS SUMMARY | 2025-04-17 08:46 | XMS_ITS | Clinical Summary ---
Author Organization [facility] Address [address] [place] [address] Phone Care Team Providers Care Yarn Handler Name Role Phone Sahra Vyas MD Primary Care Provide r Social History Tobacco UseTypesPacks/DayYears UsedDateSmoking Tobacco: Never Assessed CommentsUnknownSex and Gender InformationValueDate RecordedSex Assigned at Not on fileLegal IalJpjela86/26/2022 12:50 PM ESTGender IdentityNot on file Sexual OrientationNot on file Last Filed Vital Signs Vital SignReadingTime TakenCommentsBlood Pressure--Pulse--Temperature-- Respiratory Rate--Oxygen Saturation--Inhaled Oxygen Concentration--Aulwra50.1 kg (170 lb)05/29/2020 3:12 PM VJCSmwalq991.3 cm (5' 9 )05/29/2020 3:12 PM ESTBody Mass Index25. 3:12 PM EST Plan of Treatment Health MaintenanceDue DateLast DoneCommentsCT Hubpvugtlaxc77/01/1972Colonoscopy 1971Colorectal Cancer Xkizihazh35/01/1972FIT-DNA (Cologuard)1971FIT 1971HIV Dqktkjlzf63/01/1972Lipid Panel1971 3224Hrfjdghsnsvzb15/01/1972 COVID-19 Vaccine (#1)03/18/1972MMR Vaccines (1 of 1 - Standard series)09/16/1972 Hepatitis C Inljmyknq49/01/1990Hepatitis B Vaccines (1 of 3 - 19+ 3-dose series) 09/16/1990Zoster Vaccines (1 of 2)09/16/1990HPV/Vkmwxr0609/16/1992DTaP/Tdap/Td Vaccines (1 - Tdap)09/16/19934830Wyhefsjpl50/01/2012Pneumococcal Vaccine (2 of 2 - PCV)/02/2021Yearly Adult Ivssxajf70/01/2022, 05/26/2020 Cervical Cancer Oolildluc80/10/2025Pap Smear502/01/2022, 05/28/2021, 05/26/2020, Additional history existsInfluenza Vaccine (#1)12/17/2024HIB VaccinesAged OutNo longer eligible based on patient's age to complete this topic HPV VaccinesAged OutNo longer eligible based on patient's age to complete this topicHepatitis A VaccinesAged OutNo longer eligible based on patient's age to complete this topicIPV VaccinesAged OutNo longer eligible based on patient's age to complete this topicMeningococcal VaccineAged OutNo longer eligible based on patient's age to complete this topicRotavirus VaccinesAged OutNo longer eligible based on patient's age to complete this topic Care Teams Team MemberRelationshipSpecialtyStart DateEnd Date Sahra Vyas MD [address] [facility] [place] [address] PCP - [facility]05/19/20
--- OUTSIDE RECORDS SUMMARY | 2025-04-17 08:46 | XMS_ITS | Clinical Summary ---
Author Organization [facility] Address [address] [place] [address] [place] [address] Care Team Providers Care Lead Project Manager Name Role Phone System, Provider Not In Unavailable Unavaila Layo Fischer DO Primary Care Provider [phone] Allergies No known active allergies Medications MedicationSigDispense QuantityRefillsLast FilledStart DateEnd DateStatus Multiple Vitamin (MULTI-DAY VITAMINS PO) Indications:Choroidal lesionActive methylPREDNISolone 4 MG PO KIT take 1 Tab by mouth See admin instructions. 1 Kit ctive Additional Information Patient not taking.Reported on 03/29/2018 Cyanocobalamin (VITAMIN B-12 PO) Take by mouth.Active AMOXICILLIN PO Take by mouth.Active buPROPion 300 MG tablet XL Active Probiotic Product (PROBIOTIC DAILY PO) Take by mouth.Active ALPRAZolam 0.25 MG tablet Take 0.25 mg by mouth as needed.Active Aflibercept 2 MG/0.05ML Solution Place 0.05 mL in right eye Once (In Clinic) for 1 dose. 1 vial 04/14/2020Active Active Problems ProblemNoted DateDiagnosed DateOrbital pain, right10/10/2018CNVM (choroidal neovascular membrane), right08/05/2016CNVM (choroidal neovascular membrane) 01/04/2012Choroidal kmosak7208/03/2011enign neoplasm of right irvstxi1808/03/2011 Family History Medical HistoryRelationNameCommentsCancer- OtherPaternal AuntRelationNameStatus CommentsPaternal Aunt Social History Tobacco UseTypesPacks/DayYears UsedDateSmoking Tobacco: NeverSmokeless Tobacco: NeverAlcohol UseStandard Drinks/WeekCommentsNo0 (1 standard drink = 0.6 oz pure alcohol)CommentsUnknownSex and Gender InformationValueDate RecordedSex Assigned at BirthNot on fileLegal OlwGcyxyj43/03/2013 7:11 PM ESTGender Identity FemaleSexual OrientationNot on file Last Filed Vital Signs Vital SignReadingTime TakenCommentsBlood Yxwpedny113/7607 10:22 AM EDT Dkrfy9789 10:22 AM EDTTemperature--Respiratory Rate--Oxygen Saturation-- Inhaled Oxygen Concentration--Lcsezt90.9 kg (163 lb)10/27/2018 10:22 AM EDT Ekkhpm187.8 cm (5' 10 )10/27/2018 10:22 AM EDTBody Mass Index23.3907 10:22 AM EDT Plan of Treatment Health MaintenanceDue DateLast DoneCommentsHEPATITIS C VIRUS NKALKBVHR75/01/1972 WPTNILB37 1971HIV SCREENING DYELAYYLQZ22/01/1987HEP B VACCINE (1 of 3 - 19+ 3-dose series)09/16/1990TDAP (ADULT)09/16/1990CERVICAL CANCER SCREENING TTHVUBSCBE17/01/1993LIPID UXCXAUDOK42/01/2012COLORECTAL CANCER SCREENING WMOWXHOTLN64/01/2017PNEUMOCOCCAL VACCINE SERIES (1 of 1 - PCV)09/16/2021ZOSTER (SHINGLES) VACCINE (1 of 2)09/16/2021MAMMOGRAM SCREENING RTAYIWBUZB05/31/2024 02/15/2023, 05/28/2021, 05/26/2020OVID-19 VACCINE (1 - 2024- season) 2024INFLUENZA VACCINE (#1)2024 Insurance * Guarantor: Kristan EspinozaAccount TypeRelation to PatientDate of PhoneBilling AddressPersonal/KbewkxLfrm34/01/1971 [place] [address] Care Teams Team MemberRelationshipSpecialtyStart DateEnd Date Layo Sullivan DO PCP - GeneralObstetrics & Gynecology10/04/18 System, Provider Not In Family TsmpohctkGucyp96/17/13
--- OUTSIDE RECORDS SUMMARY | 2025-04-17 08:46 | XMS_ITS | Clinical Summary ---
Author Organization [facility] Healthcare Address [address] [place] [address] Care Team Providers Care Technical Illustrations Map Inker Name Role Phone Gama East DO Primary Care Provider [phone] Allergies No known active allergies Medications MedicationSigDispense QuantityRefillsLast FilledStart DateEnd DateStatus ALPRAZolam (Xanax) 0.5 MG tablet Take 0.5 mg by mouth every 12 (twelve) hoursActive buPROPion XL (Wellbutrin XL) 300 MG 24 hr tablet Take 300 mg by mouth 1 (one) time each day at the same timeActive venlafaxine XR (Effexor XR) 150 MG 24 hr capsule Take 150 mg by mouth Daily10/01/2022ctive multivitamin with minerals (Cerovite) 18-400 mg-mcg tablet tablet Take 1 tablet by mouth DailyActive semaglutide (Ozempic) 2 MG/1.5ML solution pen-injector Inject 0.5 mg under the skinActive Active Problems ProblemNoted DateDiagnosed DateColon cancer jsjqfyvgr21/11/2024 Resolved Problems ProblemNoted DateDiagnosed DateResolved DateAbnormal cytological findings in specimens from other organs, systems and qhbclfu565Acquired deformity of toe5Acquired hallux baljqde27 Acquired hallux eprsvw395Acute maxillary rfkeksevg13/26/2025 03/13/2025dhesive capsulitis of toe of left footmnesia arpal tunnel syndrome of right wrist Chronic bewnhijl10IN I (cervical intraepithelial neoplasia I) ontracture of left ankleDisorder of endocrine bwujcs48Dog biteDysmenorrhea Fibula fsqoaact29Heart fkvmkn8205/13/2024 03/13/2025Hot flashes due to klruwghur37Iron deficiency anemia due to chronic blood lossLeft foot pain Major depressive disorder, single episode, zefawcssrcg63 Menorrhagia with irregular cycleMetatarsal deformity, left Mood qgqpre68Muscle znmjpyc5403/13/2025 03/13/2025Nondisplaced fracture of second metatarsal bone, left foot, subsequent encounter for fracture with tccmrchn58Osteonecrosis due to previous trauma, left footJuvenile osteochondrosis of metatarsus, left footPeroneal ensqelqyfe18 Primary localized osteoarthrosis of ankle and footRecurrent sinus vyaxzhlijk22Reduced visual Skin sensation ljiuzhcuapd90Strain of lumbar lvwywg2807/07/2020 03/13/2025ody mass index (BMI) 25.0-25.9, adult Overview (03/13/2025): Last Assessment & Plan: Condition: stable Educated patient on normal BMI range of 18.5 to 24.9 Advised to monitor nutrition to not exceed caloric needs, or as indicated by PCP in order to maintain a healthy weight and BMI. Advised to engage in aerobic physical activity, if indicated to be safe by PCP, to assist with maintaining a healthy weight and BMI. Advised to follow up with PCP to address nutrition as needed to assist with reaching or maintaininga healthy weight and BMI. Follow up in: one year Recurrent major depressive disorder, in ompncmsco38 Overview (03/13/2025): Last Assessment & Plan: Condition: stable No recent mental health visit. Advised to follow up Take medications as ordered by Provider; notify Provider if you cannot take medications as ordered or are having difficulties or side-effects from medications (do not stop medications without notifying Provider). If symptoms worsen or do not improve/stabilize, notify health care provider right away. If thoughts of harming self or others notify health care provider immediately &/or seek urgent/emergent care including calling Suicide Hotline ( ) or 611. Follow up in one year with PCP Vitamin oaqgjrkcll91 Overview (03/13/2025): Last Assessment & Plan: Condition: stable Follow up in: one year Tjtqucdv58Mixed anxiety depressive tcsbcjje85/13/2020 03/13/2025Vitamin D plnlgtdyms92Orbital pain, right10/10/2018 03/13/2025NVM (choroidal neovascular membrane), rightenign neoplasm of right exvomyp73horoidal yjcesd2108/03/2011 03/13/2025 Encounters DateTypeDepartmentCare DmjjVxzanvmlukb69/24/2025 9:15 AM ESTOffice Visit [facility] [place] [facility] [address] [place] [address] Yrn Tolentino, DO Osteopenia of right forearm (Primary Dx)04/10/2025amboo flowsheet [facility] [place] [facility] [address] [place] [address] Yrn Tolentino, DO 04/10/20258941Tldpms92/08/2025 2:45 PM ESTOffice Visit [facility] [place] [facility] [address] [place] [address] Yrn Tolentino, DO Primary hyperparathyroidism (HCC)03/25/2025amboo flowsheet [facility] [place] [facility] [address] [place] [address] Yrn Tolentino, DO 03/25/20251315Gdycsk29/05/2025External Result Encounter [facility] External Department Unsolicited Yrn Tolentino, DO 03/22/2025Telephone [facility] [place] [facility] [address] [place] [address] Danielle Forde MA 03/20/2025External Result Encounter [facility] External Department Unsolicited Yrn Tolentino, DO 03/13/2025 3:30 PM ESTOffice Visit [facility] [place] [facility] [address] [place] [address] Yrn Tolentino, DO Primary hyperparathyroidism (HCC) (Primary Dx)03/13/2025Orders Only [facility] [place] [facility] [address] [place] [address] Tamiko Pizarro MA Primary hyperparathyroidism (HCC) (Primary Dx)03/13/2025amboo flowsheet [facility] [place] [facility] [address] [place] [address] Ynr Tolentino, DO 03/13/20258638Rpfmrf50/13/2025Telephone [facility] [address] [place] [address] Zoe Garrett, DO 02/28/2025[facility]stract [facility] [address] [place] [address] Zoe Garrett, DO 02/13/2025 2:00 PM EDTAncillary Procedure [facility] [address] [place] [address] Juvenile osteochondrosis of metatarsus, left foot; Hallux rigidus, left foot; Other hammer toe(s) (acquired), left foot; Contracture, left foot; Osteonecrosis due to previous trauma, left foot (HCC)02/13/2025Travelfrom Last 3 Months Immunizations ImmunizationAdministration DatesNext DueInfluenza, injectable, quadrivalent, preservative free02/17/2022Influenza, seasonal, injectable, preservative free 4Pfizer Purple Cap SARS-CoV-2 Rmfnxgbrcyo84/12/2021neumococcal Polysaccharide XGRC9921 Family History Medical HistoryRelationNameCommentsTAHMotherLung cancerMother's BrotherRelation NameStatusCommentsFatherAliveMotherAliveMother's Brother Social History Tobacco UseTypesPacks/DayYears UsedDateSmoking Tobacco: NeverPassive [...] six or more drinks on one occasion?Never 4PHQ-2AnswerDate RecordedPatient Health Questionnaire-2 Score0 4CommentsNoSex and Gender InformationValueDate RecordedSex Assigned at BirthNot on fileLegal RfsKsebvd55/15/2023 8:23 PM EDTGender Identity Not on fileSexual OrientationNot on file Last Filed Vital Signs Vital SignReadingTime TakenCommentsBlood Pugfhsbt534/8011 9:16 AM EST Pulse--Temperature--Respiratory Rate--Oxygen Saturation--Inhaled Oxygen Concentration--Irufrj36.4 kg (175 lb)04/10/2025 9:13 AM XGGUbqpyp518.7 cm (5' 8 )04/10/2025 9:13 AM ESTBody Mass Index26.6104/10/2025 9:13 AM EST Plan of Treatment DateTypeDepartmentCare Team (Latest Contact Info)Jmsxbtqykfa12/01/2026 2:00 PM EDTOffice Visit [facility] [address] [place] [address] Yrn Tolentino, DO [address] [place] [address] Health MaintenanceDue DateLast DoneCommentsCT Vujbxskeppcl07/01/1972FIT-DNA 1971FIT1971FOBT1971 2192Ifutfvjtxhiww69/01/1972Influenza Vaccine (#1), 02/17/20222924Jpbvddcsh27, 02/15/2023, 05/28/2021, Additional history existsPap Smear, 11/12/2022 Cervical Cancer Ycpboyjfj55/22/2029HPV/Gxdjdo32, 03/12/2019 Clhzhasiaov95olorectal Cancer Yklnnpxsp95/18/2034neumococcal Vaccine: Pediatrics (0 to 5 Years) and At-Risk Patients (6 to 64 Years)Aged Out 06/26/2020No longer eligible based on patient's age to complete this topic Procedures Procedure NamePriorityDate/TimeAssociated DiagnosisCommentsCOLL TIME AND VOL 24 HR XLGgrtbqi91/05/2025 8:00 AM EST CALCIUM, 24 HOUR URINE (W/O CREATININE)Jgufdnt8603/21/2025 6:45 AM EST Primary hyperparathyroidism (HCC) NM PARATHYROID CZJEYCNWG58/03/2025 1:05 PM EST Primary hyperparathyroidism (HCC) KDQVSSRAdoncug18/03/2025 9:48 AM EST PTH, INTACT WITHOUT VEJTAEZHjwzbfr36/03/2025 9:47 AM EST Primary hyperparathyroidism (HCC) CT 4D ANKCYNGONAONELI01/03/2025 9:26 AM EST Primary hyperparathyroidism (HCC) CT FOOT LEFT WO IV BOHHRYOFWbzuowi83/29/2025 2:33 PM EDT Juvenile osteochondrosis of metatarsus, left foot Hallux rigidus, left foot Other hammer toe(s) (acquired), left foot Contracture, left foot Osteonecrosis due to previous trauma, left foot (HCC) BI MAMMOGRAM SCREENING TOMOSYNTHESIS IXXTMETQPYicgytq06/13/2025 7:27 PM EST Encounter for screening mammogram for malignant neoplasm of breast HM EICGYDSYCXRJesbliw74/18/2024 2:46 PM ESTTHINPREP TIS PAP AND HPV MRNA E6/E7 Kgnrilr8305/09/2023 11:38 AM EST LGSIL Pap smear of vagina Special screening for malignant neoplasms, vagina from Last 3 Months or Most Recently Relevant to Health Maintenance Results * REYNALDO TIME AND VOL 24 HR UR (03/22/2025 8:00 AM EST)ComponentValueRef RangeTest MethodAnalysis TimePerformed AtPathologist SignatureURINE COLLECTION TIME25 03/22/2025 3:48 PM [facility] CtrTOTAL VOLUME, URINE2,925 03/22/2025 3:48 PM [facility] CtrSpecimen (Source) Anatomical Location / LateralityCollection Method / VolumeCollection Time Received TimeUrineTopography unknown / Cgfhwas6903/22/2025 8:00 AM EST03/22/2025 3:46 PM EST Narrative [facility] - 03/22/2025 4:18 PM EST URINE COLLECTION TIME (HRS): 25 URINE VOLUME (MILLILTERS): 2925 Authorizing ProviderResult TypeResult StatusBendaryn W Murcek DOLAB BLOOD ORDERABLESFinal ResultPerforming OrganizationAddressCity/State/ZIP Code[place] [address], [facility] [address] [place] [address] * Calcium, urine, 24 hour (03/21/2025 6:45 AM EST)ComponentValueRef RangeTest MethodAnalysis TimePerformed AtPathologist SignatureCALCIUM, URINE2.2Not Estab. mg/dL03/24/2025 7:07 AM ESTFIRELANDSCALCIUM, URINE 24 HR640 - 320 03/24/2025 7:07 AM ESTFIRELANDSComment: Performed at: ??CB - [facility] [address] ??[id number] Machine Maintenance Repairer: Caesar Olson PhD, Phone: ??[phone] Specimen (Source)Anatomical Location / LateralityCollection Method / Volume Collection TimeReceived TimeUrineTopography unknown / Qtqklxj2703/21/2025 6:45 AM EST03/22/2025 2:10 PM EST Narrative [facility] - 03/24/2025 7:07 AM EST URINE VOLUME (MILLILTERS): 2925 Authorizing ProviderResult TypeResult StatusBenjamin W Murcek DOLAB URINE ORDERABLESFinal ResultPerforming OrganizationAddressCity/State/ZIP [place] [address], * [place] parathyroid spect (03/20/2025 1:05 PM EST)Anatomical RegionLaterality ModalityNuclear MedicineSpecimen (Source)Anatomical Location / Laterality Collection Method / VolumeCollection TimeReceived Time03/20/2025 1:05 PM EST Impressions 03/20/2025 1:13 PM EST No persistent abnormal radiotracer attenuation is noted on delayed imaging to suggest the presence of a parathyroid adenoma. ? Impression dictated by: Paulie Chavarria M.D. ??03/20/2025 1:10 PM ? Dictation Location: RADIO-PC-23 ? Transcribed By: ? PWS ?03/20/25 1310 ? Dictated By: ?Paulie Chavarria II, MD ?03/20/25 1305 ? Signed By: <Electronically signed by Paulie Chavarria II, MD in OV> ? 03/20/25 1310 Narrative 03/20/2025 1:[address] [facility] ?[facility] ?[address] ? [place], [place] [address] ?Nuclear Medicine Report ? Signed ? Patient: Kristan Hutton ?MR#: [id number] ?? [id number] ? : 1970 ?Acct:[id number] ? Age/Sex: 54 / F ?ADM Date: 12/25 ? Loc: [place] ?Room: ?Type: REG CLI ?? Attending Dr: Yrn Tolentino DO ?? Copies to: Yrn Tolentino,DO ?? Paulie Chavarria II, ? Ordering Provider: Yrn Tolentino DO ?? Date of Service: 03/20/25 ?? NM/NM*parathyroid SPECT*: HYPERPARATHYROIDISM ? NM*parathyroid SPECT* ??03/20/2025 10:55 AM ? SIGNS AND SYMPTOMS: HYPERPARATHYROIDISM ? PROTOCOL: Scintigraphic images of the neck were obtained 15 minutes and 2 hours after intravenous radiotracer administration. ??SPECT images were performed with reconstructions in axial, sagittal, coronal, and 3-D planes ? COMPARISON: 03/20/2025 ? RADIOPHARMACEUTICAL: 22.0 mCi of intravenous technetium 99m sestamibi ? FINDINGS: ? Scintigraphic images demonstrate relatively symmetric radiotracer accumulation within the thyroid. ?? No persistent abnormal radiotracer attenuation is noted on delayed imaging to suggest the presence of a parathyroid adenoma. ??There is physiologic radiotracer accumulation within the salivary glands. ? NM/NM*parathyroid SPECT* ?? Procedure Note aPulie Chavarria MD - 03/20/2025 [facility] [place] [address] Nuclear Medicine Report Signed Patient: Kristan Hutton [facility]#: [id number] : 1970Acct:[id number] Age/Sex: 54 / FADM Date: 03/20/25 Loc: [place] Room:Type: [facility] Attending Dr: Yrn Tolentino DO Copies to: DO Paulie Beatty II, MD Ordering Provider: Yrn Tolentino DO Date of Service: 03/20/25 NM/NM*parathyroid SPECT*: HYPERPARATHYROIDISM NM*parathyroid SPECT* 03/20/2025 10:55 AM SIGNS AND SYMPTOMS: HYPERPARATHYROIDISM PROTOCOL: Scintigraphic images of the neck were obtained 15 minutes and 2hours after intravenous radiotracer administration. SPECT images were performed withreconstructions in axial, sagittal, coronal, and 3-D planes COMPARISON: 03/20/2025 RADIOPHARMACEUTICAL: 22.0 mCi of intravenous technetium 99m sestamibi FINDINGS: Scintigraphic images demonstrate relatively symmetric radiotraceraccumulation within the thyroid. No persistent abnormal radiotracer attenuation is noted on delayed imagingto suggest the presence of a parathyroid adenoma. There is physiologic radiotracer accumulationwithin the salivary glands. NM/NM*parathyroid SPECT* IMPRESSION: No persistent abnormal radiotracer attenuation is noted on delayed imagingto suggest the presence of a parathyroid adenoma. Impression dictated by: Paulie Chavarria M.D. 03/20/2025 1:10 PM Dictation Location: [facility]-PC-23 Transcribed By: [facility] 03/20/25 1310 Dictated By: Paulie Chavarria II, MD 03/20/25 1305 Signed By: <Electronically signed by Paulie Chavarria II, MD inOV> 03/20/25 1310 Authorizing ProviderResult TypeResult StatusYrn Tolentino DOI NM PROCEDURESFinal Result * Calcium (03/20/2025 9:48 AM EST)ComponentValueRef RangeTest MethodAnalysis TimePerformed AtPathologist SignatureCalcium9.08.6 - 10.3 mg/dL03/20/2025 10:57 AM [facility] CtrSpecimen (Source)Anatomical Location / LateralityCollection Method / VolumeCollection TimeReceived TimeOther Topography unknown / Invfssq9303/20/2025 9:48 AM EST03/20/2025 9:48 AM EST Narrative Authorizing ProviderResult TypeResult StatusYrn Tolentino DOLAB BLOOD ORDERABLESFinal ResultPerforming OrganizationAddressCity/State/ZIP CodePhone Number [facility] [address] [place] [address], [facility] [address] [place] [address] * PTH, intact (03/20/2025 9:47 AM EST)ComponentValueRef RangeTest MethodAnalysis TimePerformed AtPathologist SignaturePARATHYROID HORMONE IFONDS54.912 - 88 pg/mL03/20/2025 11:14 AM [facility] CtrSpecimen (Source) Anatomical Location / LateralityCollection Method / VolumeCollection Time Received TimeOtherTopography unknown / Otxccjs7603/20/2025 9:47 AM EST03/20/2025 9:47 AM EST Narrative Authorizing ProviderResult TypeResult StatusBenjakarla Tolentino DOLAB BLOOD ORDERABLESFinal ResultPerforming OrganizationAddressCity/State/ZIP CodePhone Number [facility] [address] [facility] [address], [facility] [address] [facility] [place] [address] * CT 4D PARATHYROID (03/20/2025 9:26 AM EST)Anatomical RegionLateralityModality Head, NeckComputed TomographySpecimen (Source)Anatomical Location / Laterality Collection Method / VolumeCollection TimeReceived Time03/20/2025 9:26 AM EST Impressions 03/20/2025 9:45 AM EST There is a mildly enhancing nodule near the inferior pole of the left thyroid lobe measuring 9 x 7 x 11 mm in greatest dimension. ??This does not have the typical arterial enhancement of a parathyroid adenoma. ??An atypical parathyroid adenoma is not excluded. ??Correlation with nuclear medicine sestamibi parathyroid study May BE helpful if clinically indicated. ? No mass or abnormal enhancement is noted otherwise. ? Impression dictated by: Paulie Chavarria M.D. ??03/20/2025 9:43 AM ? Dictation Location: RADIO-PC-23 ? Transcribed By: ? PWS ?03/20/25942 ? Dictated By: ?Paulie Chavarria II, MD ?03/20/25925 ? Signed By: <Electronically signed by Paulie Chavarria II, MD in OV> ? 12/03/25 0943 Narrative 03/20/2025 9:[address] [facility] ?[facility] ?[address] ? [place] [address] ? CT Scan Report ? Signed ? Patient: Anni,Kristan S ?MR#: [id number] ?? [id number] ? : 1970 ?Acct:[id number] ? Age/Sex: 54 / F ?ADM Date: 03/20/25 ? Loc: [place] ?Room: ?Type: REG CLI ?? Attending Dr: Yrn Tolentino DO ?? Copies to: Yrn Tolentino,DO ? Ordering Provider: Yrn Tolentino,DO ?? Date of Service: 03/20/25 ?? CT/CT neck 4D parathyroid: HYPERPARATHYROIDISM ? CT neck 4D parathyroid ??03/20/2025 9:21 AM ? SIGNS AND SYMPTOMS: HYPERPARATHYROIDISM ? CONTRAST: 90 mL of intravenous Isovue-300 ? TECHNIQUE: Multidetector CT axial slices of the soft tissues of the neck were obtained with IV contrast. Sagittal and coronal reformats were reconstructed. CT was performed with one or more of the following dose reduction techniques: Automated exposure control, adjustment of the mA and/or kV according to patient size, or use of iterative reconstruction technique. ? COMPARISON: None ? FINDINGS: ? Soft tissues of the orbits are within normal limits. The soft tissues of the infratemporal fossa fossa structures show no acute abnormality. Mucosal surfaces of the nasopharynx, oropharynx, hypopharynx, glottic, and subglottic airways are grossly unremarkable. ? The parotid glands, submandibular, and the thyroid gland are within normal limits. ? There is a mildly enhancing nodule near the inferior pole of the left thyroid lobe measuring 9 x 7 x 11 mm in greatest dimension. ??This does not have the typical arterial enhancement of a parathyroid adenoma. ??An atypical parathyroid adenoma is not excluded. ??Correlation with nuclear medicine sestamibi parathyroid study May BE helpful if clinically indicated. ? The carotid and jugular circulations are within normal limits. ? The visualized lung parenchyma shows no acute pathology. ? No acute bony abnormalities are appreciated. ??Degenerative changes are noted in the cervical spine at C5-C6 and C6-C7. ??The skull base, craniocervical junction, atlantoaxial joints are within normal limits. ? The paranasal sinuses are within normal limits. ? CT/CT neck 4D parathyroid ?? Procedure Note Paulie Chavarria MD - 03/20/2025 [facility] [address] [place] [address] CT Scan Report Signed Patient: Kristan Hutton [facility]#: [id number] : 1970Acct:[id number] Age/Sex: 54 / FADM Date: 03/20/25 Loc: [place] Room:Type: [facility] Attending Dr: Yrn Tolentino DO Copies to: Yrn Tolentino DO Ordering Provider: Yrn Tolentino DO Date of Service: 03/20/25 CT/CT neck 4D parathyroid: HYPERPARATHYROIDISM CT neck 4D parathyroid 03/20/2025 9:21 AM SIGNS AND SYMPTOMS: HYPERPARATHYROIDISM CONTRAST: 90 mL of intravenous Isovue-300 TECHNIQUE: Multidetector CT axial slices of the soft tissues of the neckwere obtained with IV contrast. Sagittal and coronal reformats were reconstructed. CT wasperformed with one or more of the following dose reduction techniques: Automated exposure control,adjustment of the mA and/or kV according to patient size, or use of iterative reconstruction technique. COMPARISON: None FINDINGS: Soft tissues of the orbits are within normal limits. The soft tissues ofthe infratemporal fossa fossa structures show no acute abnormality. Mucosal surfaces of thenasopharynx, oropharynx, hypopharynx, glottic, and subglottic airways are grossly unremarkable. The parotid glands, submandibular, and the thyroid gland are within normal limits. There is a mildly enhancing nodule near the inferior pole of the leftthyroid lobe measuring 9 x 7 x 11 mm in greatest dimension. This does not have the typical arterialenhancement of a parathyroid adenoma. An atypical parathyroid adenoma is not excluded. Correlationwith nuclear medicine sestamibi parathyroid study May BE helpful if clinically indicated. The carotid and jugular circulations are within normal limits. The visualized lung parenchyma shows no acute pathology. No acute bony abnormalities are appreciated. Degenerative changes arenoted in the cervical spine at C5-C6 and C6-C7. The skull base, craniocervical junction, atlantoaxialjoints are within normal limits. The paranasal sinuses are within normal limits. CT/CT neck 4D parathyroid IMPRESSION: There is a mildly enhancing nodule near the inferior pole of the leftthyroid lobe measuring 9 x 7 x 11 mm in greatest dimension. This does not have the typical arterialenhancement of a parathyroid adenoma. An atypical parathyroid adenoma is not excluded. Correlationwith nuclear medicine sestamibi parathyroid study May BE helpful if clinically indicated. No mass or abnormal enhancement is noted otherwise. Impression dictated by: Paulie Chavarria M.D. 03/20/2025 9:43 AM Dictation Location: [place] [address] Transcribed By: [facility] 03/20/25 0943 Dictated By: Paulie Chavarria II, MD 03/20/25 0926 Signed By: <Electronically signed by Paulie Chavarria II, MD inOV> 03/20/25 0943 Authorizing ProviderResult TypeResult StatusBenjamin Ann Tolentino [facility] CT PROCEDURESFinal Result * CT foot left wo IV contrast (02/13/2025 2:33 PM EDT)Anatomical Region LateralityModalityLower Extremities, FootLeftComputed TomographySpecimen (Source)Anatomical Location / LateralityCollection Method / VolumeCollection TimeReceived Time02/14/2025 12:27 PM EDT Impressions 02/14/2025 12:35 PM EDT Fractured and displaced second metatarsal prosthesis. The second metatarsal fracture line persists. Postsurgical changes of open reduction internal fixation of the first proximal phalanx with fracture nonunion. ELECTRONICALLY SIGNED BY: Fermin Dykes DO Narrative 02/14/2025 12:35 PM EDT EXAMINATION: CT FOOT LEFT WO IV CONTRAST HISTORY: History of fracture and osteonecrosis. Contracture of left foot TECHNIQUE: Multiple axial images were obtained of the left foot without contrast. Multiplanar reformats were obtained. All CT scans at this facility use dose modulation, iterative reconstruction, and/or weight based dosing when appropriate to reduce radiation dose to as low as reasonably achievable. COMPARISON: None available FINDINGS: A metallic prosthesis traverses the distal half of the second metatarsal and replaces the metatarsal head. There appears to be a fracture of this prosthesis within the distal diaphysis of the second metatarsal with dorsal migration of the distal portion of the prosthesis 1 shaft width as seen on sagittal bone series 76411 image 19. Fracture line persists. A metallic screw traverses the first proximal phalanx fracture where there is some callus formationbut persistent fracture line. No acute fracture. Mild degenerative changes of the first metatarsophalangeal joint. Presumed postsurgical changes of the dorsal soft tissues along the second metatarsal. No definitive soft tissue mass. No overt abnormality of the flexor or extensor tendons identified by CT. Procedure Note Fermin Dykes, DO - 02/14/2025 EXAMINATION: CT FOOT LEFT WO IV CONTRAST HISTORY: History of fracture and osteonecrosis. Contracture of left foot TECHNIQUE: Multiple axial images were obtained of the left foot withoutcontrast. Multiplanar reformats were obtained. All CT scans at this facility use dose modulation, iterativereconstruction, and/or weight based dosing when appropriate to reduceradiation dose to as low as reasonably achievable. COMPARISON: None available FINDINGS: A metallic prosthesis traverses the distal half of the second metatarsaland replaces the metatarsal head. There appears to be a fracture of thisprosthesis within the distal diaphysis of the second metatarsal withdorsal migration of the distal portion of the prosthesis 1 shaft width asseen on sagittal bone series 49619 image 19. Fracture line persists. A metallic screw traverses the first proximal phalanx fracture where thereis some callus formation but persistent fracture line. No acute fracture. Mild degenerative changes of the firstmetatarsophalangeal joint. Presumed postsurgical changes of the dorsalsoft tissues along the second metatarsal. No definitive soft tissue mass.No overt abnormality of the flexor or extensor tendons identified by CT. IMPRESSION: Fractured and displaced second metatarsal prosthesis. The secondmetatarsal fracture line persists. Postsurgical changes of open reduction internal fixation of the firstproximal phalanx with fracture nonunion. ELECTRONICALLY SIGNED BY: Fermin Dykes DO Authorizing ProviderResult TypeResult StatusDanish Carrillo MDOKLAHOMA [facility] [place] [facility] PROCEDURES Final Result * Bilateral screening mammogram with tomosynthesis (05/31/2024 7:27 PM EST) Anatomical RegionLateralityModalityBreastBilateralMammographySpecimen (Source) Anatomical Location / LateralityCollection Method / VolumeCollection Time Received Time06/04/2024 10:43 AM EST Impressions 06/04/2024 10:49 AM EST Impression: No specific evidence of malignancy seen in either breast. BIRADS 2 - Benign Findings DENSITY: There are scattered areas of fibroglandular density. FOLLOW-UP: Routine Screening Mammogram ELECTRONICALLY SIGNED BY: Chris Salvador M.D. Narrative 06/04/2024 10:49 AM EST Examination: BI MAMMOGRAM SCREENING TOMOSYNTHESIS BILATERAL Clinical History: screening Technique: Screening digital mammography study of both breasts was performed with 2-D and 3-D tomosynthesis imaging. Study was compared to the prior exam dated 02/15/2023. Findings: There is no evidence of interval dominant spiculated mass, grouped microcalcifications, or skin thickening which would be suggestive of malignancy. ?? Partially visualized axillary lymph nodes suggested on the right which appear grossly unremarkable. Procedure Note Chris Salvador MD - 06/04/2024 Examination: BI MAMMOGRAM SCREENING TOMOSYNTHESIS BILATERAL Clinical History: screening Technique: Screening digital mammography study of both breasts wasperformed with 2-D and 3-D tomosynthesis imaging. Study was compared tothe prior exam dated 02/15/2023. Findings: There is no evidence of interval dominant spiculated mass,grouped microcalcifications, or skin thickening which would be suggestiveof malignancy. Partially visualized axillary lymph nodes suggested on the right whichappear grossly unremarkable. IMPRESSION: Impression: No specific evidence of malignancy seen in either breast. BIRADS 2 - Benign Findings DENSITY: There are scattered areas of fibroglandular density. FOLLOW-UP: Routine Screening Mammogram ELECTRONICALLY SIGNED BY: Chris Salvador M.D. Authorizing ProviderResult TypeResult StatusLayo Sullivan DOI BI PROCEDURES Final Result * Hm Colonoscopy (04/04/2024 2:46 PM EST)Anatomical RegionLateralityModality Other Narrative Authorizing ProviderResult TypeResult StatusAlbert Jose Navarro MDHEALTH MAINTENANCEFinal Result * (ABNORMAL) THINPREP TIS PAP AND HPV MRNA E6/E7 (05/09/2023 11:38 AM EST) ComponentValueRef RangeTest MethodAnalysis TimePerformed AtPathologist SignatureCLINICAL INFORMATIONQUESTComment:None givenLMPQUESTComment:NONE GIVEN PREV. PAPQUESTComment:NONE GIVENPREV. BXQUESTComment:NONE GIVENSOURCEQUEST Comment:None givenSTATEMENT OF ADEQUACYQUESTComment: Satisfactory for evaluation. Endocervical/transformation zone component absent. GENERAL CATEGORIZATION(A)QUESTComment:Cytology Results: Epithelial Cell AbnormalityINTERPRETATION/RESULT(A)QUESTComment: Atypical Squamous Cells of Undetermined Significance (ASC-US) COMMENTQUESTComment: This Pap test has been evaluated with computer assisted technology. CYTOTECHNOLOGISTQUESTComment: MINH GHOSH(ASCP) CT Screening Location: [place] [address]. PATHOLOGISTQUESTComment: Doreen Tovar MD Board Certified in Anatomic and Clinical Pathology Board Certified in Cytopathology (electronic signature) For questions regarding this report call Anatomic Pathology at [phone] (ALWAYS MESSAGE)QUESTComment: EXPLANATORY NOTE: The Pap is a screening test for cervical cancer. It is not a diagnostic test and is subject to false negative and false positive results. It is most reliable when a satisfactory sample, regularly obtained, is submitted with relevant clinical findings and history, and when the Pap result is evaluated along with historic and current clinical information. HPV MRNA E6/E7Not DetectedNot DetectedQUESTComment: Methodology: Physical Biochemist-Mediated Amplification This assay detects E6/E7 viral messenger RNA (mRNA) from 14 high-risk HPV types (16,18,31,33,35,39,45,51,52,56,58,59,66,68). Cervical sources are required for HPV testing. If a vaginal source from a patient who has had a total hysterectomy with removal of cervix was submitted, please contact the testing laboratory for alternative testing options. For additional information, please refer to http://education.DistalMotion/faq/EDR333a4 (This link if provided for information/ educational purposes only.) Specimen (Source)Anatomical Location / LateralityCollection Method / Volume Collection TimeReceived TimeVaginal Fluid05/09/2023 11:38 AM EST05/10/2023 4:11 AM EST Narrative Resulting Agency Comment Performing Organization Information ?Site ID: [id number] ?Name: [facility] ?Address: [address] [place] [address], [address] [place] [id number] ?Director: Sulaiman Skaggs MD Authorizing ProviderResult TypeResult StatusRichard A Visci DOLAB CYTOLOGY ORDERABLESFinal ResultPerforming OrganizationAddressCity/State/ZIP CodePhone Number QUEST from Last 3 Months or Most Recently Relevant to Health Maintenance Insurance Care Teams Team MemberRelationshipSpecialtyStart DateEnd Date Gama East DO [address] [facility] [place] [id number] PCP - General09/21/22
--- NOTE | 2025-04-17 08:47 | CT_ITS ---
The [address] [address] Patient Name: ANDREW LEVY MRN: [id number] date: 1970 Sex: F Assigned Patient Location: CT Current Patient Location: CT Accession/Order Number: [id number] Exam Date: 04/17/2025 08:50 Report Date: 04/17/2025 17:22 At the request of: ERICH BERNAL DPM Procedure: CT foot LT wo con CT foot LT wo con 04/17/2025 8:58 AM SIGNS AND SYMPTOMS: ^Hallux Rigidus, Nonunion TECHNIQUE: Multidetector CT axial slices of the left foot without IV contrast. Multiplanar reformats were performed and viewed on a separate workstation and reviewed to further define anatomy and possible pathology. CT was performed with one or more of the following dose reduction techniques: Automated exposure control, adjustment of the mA and/or kV according to patient size, or use of iterative reconstruction technique. COMPARISON: 02/13/2025 and 01/15/2025 FINDINGS: There is hardware fixation of the proximal phalanx of the great toe which appears to be nearly completely healed without hardware complication. There is arthroplasty of the head of the second metatarsal with fracture of the proximal intramedullary segment similar to the previous exam. There is periosteal new bone formation consistent with a healing response. Healing remains incomplete. The distal fragment is subluxed cranially by 5 mm in respect to the proximal fragment. There is accompanying soft tissue edema along the shaft and head of the second metatarsal adjacent to the hardware. No acute displaced fracture. There is mild plantar surface calcaneal spurring. CT/CT foot LT wo con IMPRESSION: There is hardware fixation of the proximal phalanx of the great toe which appears to be nearly completely healed without hardware complication. There is arthroplasty of the head of the second metatarsal with fracture of the proximal intramedullary segment similar to the previous exam. There is periosteal new bone formation consistent with a healing response. Healing remains incomplete. The distal fragment is subluxed cranially by 5 mm in respect to the proximal fragment. There is accompanying soft tissue edema along the shaft and head of the second metatarsal adjacent to the hardware. Impression dictated by: Paulie Chavarria M.D. 04/17/2025 5:22 PM Dictation Location: [place] [address] Electronically authenticated by: [id number] Y Date: 04/17/2025 17:22
--- OUTSIDE RECORDS SUMMARY | 2025-04-17 08:47 | XMS_ITS | Clinical Summary ---
Author Organization [facility] Address [address], [address] [place] [address] Care Team Providers Care Roundsman Name Role Phone Sahra Vyas MD Primary Care Provider [phone] Allergies No known active allergies Medications MedicationSigDispense QuantityRefillsLast FilledStart DateEnd DateStatus MULTIPLE VITAMIN PO Take 1 tablet by mouth dailyActive buPROPion (WELLBUTRIN XL) 150 MG extended release tablet Take 2 tablets by mouth every xlzedoa5105/27/2020ctive ALPRAZolam (XANAX) 0.25 MG tablet Take 1 tablet by mouth as needed for Anxiety.Active aflibercept (EYLEA) 2 MG/0.05ML injection Apply 2 mg to eye04/14/2020Active venlafaxine (EFFEXOR) 100 MG tablet Take 1 tablet by mouth daily Takes 150 mgActive vitamin C (ASCORBIC ACID) 500 MG tablet Take 1 tablet by mouth dailyActive tiZANidine (ZANAFLEX) 2 MG tablet Take 1 tablet by mouth every 6 hours as needed (as needed) 30 tablet 5Active Active Problems ProblemNoted DateDiagnosed DateLow back jhfohf5407/07/2020Vitamin deficiency 09/27/2019 Overview (07/07/2020): Last Assessment & Plan: Condition: stable Follow up in: one year Recurrent major depressive disorder, in ywobpfhxq28/11/2020 Overview (07/07/2020): Last Assessment & Plan: Condition: stable No [...] including calling Suicide Hotline ( ) or 911. Follow up in one year with PCP Body mass index (BMI) of 25.0-25.9 in adult09/27/2019 Overview (07/07/2020): Last Assessment & Plan: Condition: stable Educated [...] and BMI. Follow up in: one year Orbital pain, right10/10/2018CNVM (choroidal neovascular membrane), right 01/04/2012enign neoplasm of right xnigvpj9808/03/2011 Family History Medical HistoryRelationNameCommentsOtherMotherRelationNameStatusCommentsFather AliveMotherAlive Social History Tobacco UseTypesPacks/DayYears UsedDateSmoking Tobacco: NeverSmokeless Tobacco: Never Tobacco Cessation:Counseling Given: No PHQ-2AnswerDate RecordedPHQ-9 Total Czobv487Hunger Vital SignAnswerDate RecordedWithin the past 12 months, you worried that your food would run out before you got the money to buymore.Never true07/07/2020Within the past 12 months, the food you bought just didn't last and you didn't have money to get more.Never true07/07/2020RAPARE - TransportationAnswerDate RecordedIn the past 12 months, has lack of transportation kept you from medical appointments or from getting medications?No07/07/2020In the past 12 months, has lack of transportation kept you from meetings, work, or from getting things needed for daily living?No07/07/2020Interpersonal Safety Domain Source: IP Abuse Screening AnswerDate RecordedPhysical ozcceQaxoro55/23/2025Verbal qtqhxMaqsey34/23/2025 Emotional lnonpMeslqe77/23/2025Financial sdallJjqbbc75/23/2025Sexual abuseDenies 10/08/2024CommentsNoSex and Gender InformationValueDate RecordedSex Assigned at BirthNot on fileLegal ZflLyeqzx58/09/2021 9:35 AM ESTGender Identity Not on fileSexual OrientationNot on file Last Filed Vital Signs Vital SignReadingTime TakenCommentsBlood Hmixaxya859/76010/08/2024 6:15 PM EDT Tqxvr948210/08/2024 6:15 PM YWWSmqjdikxtpa42.2 ??C (97.2 ??F)10/08/2024 5:08 PM EDTRespiratory Tchi986010/08/2024 6:15 PM EDTOxygen Prludryfay13%10/08/2024 6:15 PM EDTInhaled Oxygen Concentration--Vacjnn22.9 kg (174 lb)10/08/2024 10:46 AM WNNYettad647.3 cm (5' 9 )10/08/2024 10:41 AM EDTBody Mass Index25.7010/08/2024 10:41 AM EDT Plan of Treatment Health MaintenanceDue DateLast DoneCommentsDepression Ihqdtklqkw83/01/1984HIV xuszie8909/16/1986Hepatitis C laioqm8609/16/1989DTaP/Tdap/Td vaccine (1 - Tdap) 09/16/1990Hepatitis B vaccine (1 of 3 - 19+ 3-dose series)09/16/1990Diabetes vrzess1409/16/20062199Shptid43/01/7739Lvcefttvhzv67/01/2017Colorectal Cancer Screen 09/16/2016FIT/FOBT: Average risk09/16/2016Fecal-DNA (Cologuard): Average risk 09/16/2016Sigmoidoscopy/CT aczlmsbkunxx94/01/2017Pneumococcal 50+ years Vaccine (1 of 1 - PCV)09/16/2021hingles vaccine (1 of 2)09/16/2021Flu vaccine (#1) 5105/12/2023OVID-19 Vaccine (4 - season)504/03/2021, 07/10/2020, 06/12/2020reast cancer trxaer16/, 02/15/2023, 05/28/2021, Additional history existsHepatitis A vaccineAged OutNo longer eligible based on patient's age to complete this topicHib vaccineAged OutNo longer eligible based on patient's age to complete this topicMeningococcal (ACWY) vaccineAged OutNo longer eligible based on patient's age to complete this topicMeningococcal B vaccineAged OutNo longer eligible based on patient's age to complete this topicPolio vaccineAged OutNo longer eligible based on patient's age to complete this topic Medical Devices ImplantedTypeAreaManufacturerDevice IdentifierShelf Expiration DateModel / Serial / LotScrew Bne L24mm Dia3mm Ti Ally Brice Full Thrd St Hdlss - [id number] Implanted:Qty[facility] First ToeWRIGHT [employer]-[id number]/12/[id number] / / [id number] Wire Fix Dia0.90mm Nthrd - [id number] Implanted:Qty: 1 on 10/08/2024 at [facility]: [employer] [facility]-[id number] / / Description:SECOND TOEGraft Bone Matric V92-Fc 2.5cc - [id number] Implanted:Qty: 1 on 10/08/2024 by Danish Carrillo DPM at [facility]: Second ToePARAGON [id number]/30/[id number] / [id number] / Custom Ao 2nd Metatarsal Size:S Implanted:Qty: 1 on 10/08/2024 [facility] Second [id number] / / Screw Bne L30mm Od2.5mm Hdlss - [id number] Implanted:Qty: 1 on 10/08/2024 [facility] [employer] [id number] / / ExplantedTypeAreaManufacturerDevice IdentifierShelf Expiration DateModel / Serial / LotScrew Bne Nlck 2x11 Mm Ti Ns Baby Gorilla - [id number] Explanted:Qty[facility] Second Toe PAR[employer] [id number] / / Guidewire Orth 93m193 Mm Smooth Single End Trocar Tip - [id number] Explanted:Qty: 1 on 10/08/2024 [facility] Second ToePAR[employer]ON [id number] / / Guidewire Surg L150mm Dia1.2mm Nickel Chrom Smooth Sgl End - [id number] Explanted:Qty: [facility] Second To[employer] [id number] / / Guidewire Surg L150mm Dia1.6mm Nickel Chrom Smooth Sgl End - [id number] Explanted:Qty: 3 [facility] Second Toe [employer] [id number] / / K Wire Nthrd 1.15mm Mini - [id number] Explanted:Qty: 1 on 10/08/2024 [facility] [employer] [facility]-[id number] / / Insurance Advance Directives * Full Code (Latest Code Status on File) Date ActivatedDate InactivatedComments07/08/2020 11:53 AM07/08/2020 2:57 PM Care Teams Team MemberRelationshipSpecialtyStart DateEnd Date Sahra Vyas MD [address] [place] [id number] PCP - GeneralInternal Medicine07/07/20
--- OUTSIDE RECORDS SUMMARY | 2025-04-17 08:47 | XMS_ITS | Patient Health Record ---
Author Organization [facility] Address [address] [address], [place] [address] Care Team Providers Care Subassemblies Wirer Name Role Phone Raoul Burt Unavailable [phone] Allergies No Known Allergies Reason For Referral No Information Medications Medication SIG (Take, Route, Frequency, Duration) Notes Start Date End Date Status buPROPion HCl ER (XL) 300 MG Tablet Extended Release 24 Hour Oral; Duration: 90 Days ActiveVenlafaxine HCl ER 150 MG Capsule Extended Release 24 HourOral; Duration: 90 DaysActive Social History Section Notes: No tobacco use. Social alcohol use. No tobacco use. Social alcohol use. 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275 and Pseudarthrosis after fusion or arthrodesis M96.0 [facility] [address] [address], [facility] [address] 02/28/2025 Raoul Burt [facility], [id number] [id number]/[facility] Assessments Encounter Date Diagnosis (ICD Code) Assessment Notes Treatment Notes Treatment Clinical Notes Section Notes 02/18/2025 Osteonecrosis due to previous tr auma, left foot (ICD-10 - M87.275) Patient was seen and evaluated. I reviewed a CT scan she recently had but xrays were not available for my review. She is to see Dr. Carrillo tomorrow to review the CT scan as well. I was able to review Dr. Carrillo's last note as well. I am unable to clearly answer her question to why the hallux osteotomy was performed although I attempts to explain that Danny osteotomy is typically for hallux valgus or similar alignment. She was visibly frustrated and tearful and much encouragement was provided. Specifically, I do not believe sheis fully recovered and the pain at the plantar aspect of the great toe may be at least in part due to the osteotomy not fully being healed. I recommended she discuss a bone stimulator with him. The nerve type symptoms I attempted to explain may resolve with time and that there are topical andoral medications to help although she didn't seemingly welcome my explaination and became increasingly upset. I attempted to be empathetic but this only upset her more. Further, I have not been credentialed on [employer] (her insurance provider) so I waived thecash fee today and related that I hope to be on her insurance soon so she is welcome to follow-up anytime however I strongly recommended she continue to f/u with Dr. Carrillo. 02/18/2025Pseudarthrosis after fusion or arthrodesis (ICD-10 - M96.0)nonunion of hallux proximal phalanx yzxiytkwf45/15/2025Hallux rigidus, left foot (ICD-10 - M20.22) I had a long discussion with Livier regarding surgical and nonsurgical options, potential risks/benefitis and prognosis. She has been placing the bone stimulator over the 2nd metatarsal head which may or may not be leading to additional symptoms (?). It is likely the implant is not as stable as I once thought when she wasn't having pain there. Given the limited ROM and toe contracture I believe she will need a 1st MPJ fusion. The 2nd toe pathology is not as easy to correct and we discussed multiple options includin. Leaving the implant alone especially if stable via intra-op stress exam - if there is still painafter the great toe is fused then removal may ultimately be necessary 2. Removing the broken implant and pinning the toe - with the hope that it will stabilize via scar tissue although may lead to secondary deformity and require syndactylization or another surgery 3. Repeat 3DP 2nd metatarsal implant - at this time I am not able to perform 3DP implants due to change in hosptial adminstration and issues associated with TBH being acquired. I recommended she f/u after the DEXA scan and a f/u CT scan which was ordered today. Hopefully we can proceed with operative intervention if necessary in April [facility] 04/01/2025Painful orthopaedic hardware (ICD-10 - T84.84XA)04/01/2025 Osteonecrosis due to previous trauma, left foot (ICD-10 - M87.275)04/01/2025 Pseudarthrosis after fusion or arthrodesis (ICD-10 - M96.0)nonunion of hallux proximal phalanx osteotomy Plan Of Treatment No Information Insurance Providers Payer Name Payer Address Payer Phone Subscriber Number Group Number Insured Name Patient Relationship to Insured Coverage Start Date Coverage End Date [facility] [address] [place] [phone] [id number] Mike Huttoncarl - patient is the spouse of the insured Medical (General) History Medical History History ICD Code Arthritis Surgical History Surgery Date(Month/Year) Hysterectomy Left FootCarpal Tunnel
--- OUTSIDE RECORDS SUMMARY | 2025-04-17 08:47 | XMS_ITS | Patient Health Record ---
Author Organization [facility] in [place] Address [address] [place] [address] Care Team Providers Care Acute Care Certified Nursing Assistant Name Role Phone Gama East DO Primary Care Provider Unavailabl e Provider, Lab Unavailable [phone] Provider, Radiology Unavailable [phone] Danish Carrillo Unavailable [phone] Raoul Burt Unavailable [phone] Ovidio Hayes Unavailable [phone] Allergies No Known Allergies Results Component Value Reference Range Notes SED RATE and CRP Reviewed date:02/28/2025 06:51:41 AM Interpretation: Performing Lab:[facility], [facility] [place], [address] [phone] Notes/Report: [facility] S [id number] SED RATE WEST. 3 (0 - 25) MM/HR CRP EXTENDED RANGE3.88(0.00 - 5.00) MG/LVITAMIN D, 25 LEVEL (TOTAL) Reviewed date:02/28/2025 06:51:41 AM Interpretation: Performing Lab:[facility], [address] [place], [address] Notes/Report: * * * VITAMIN D, 25 HYDROXY GENERAL GUIDELINE * * * DEFICIENCY = < OR = 20.0 NG/ML INSUFFICIENCY = 20.1 - 29.9 NG/ML SUFFICIENCY = 30.0 - 100.0 NG/ML TOXICITY = > 100.1 NG/ML [facility]: [facility] - LAB S [id number] D, 2535.1(30.0 - 100.0) NG/MLPTH INTACT (PARATHYROID HORMONE) Reviewed date:02/28/2025 12:24:24 PM Interpretation: Performing Lab:[facility], [facility] [place], [address] Notes/Report: [facility] - LAB S [id number],UNRTPV08.3(14.2 - 75.2) PG/MLPREALBUMIN Reviewed date:02/28/2025 06:51:41 AM Interpretation: Performing Lab:[facility], [address] [place], [place] [address]or [address] [place], [address] Notes/Report: [facility]: [facility] - LAB S [id number](17.6 - 36.0) MG/DLCALCIUM, IONIZED Reviewed date:02/28/2025 06:51:57 AM Interpretation: Performing Lab:[facility], [address] [place] [address] Rd[address] [place], [address] Notes/Report: [facility]: [facility] - LAB S [id number], IONIC4.8(4.5 - 5.3) MG/DLALKALINE PHOSPHATASE (ALP) Reviewed date:02/28/2025 06:51:41 AM Interpretation: Performing Lab:[facility], [address] [place] [address] Rd[address] [place], [address] Notes/Report: [facility]: [facility] - LAB S [id number] PHOS92(38 - 126) U/LXR Foot LT (3 views) * Reviewed date:01/16/2025 02:09:43 PM Interpretation: Performing Lab: Notes/Report: [facility], [facility] [address] [place] [address] Name: Anni Adkins : 1970 Gender: F Referring Provider: Danish Carrillo Exam: LT FOOT 3 VIEW LEFT Exam Start: 01/15/2025 Accn: [id number] History: Freiberg's disease. Prior surgery. Three views of the left foot 01/15/25. Exam is compared to the 11/06/24 plain films of the left foot. Findings: Postop changes replacement of the 2nd metatarsal head. Wire in the 2nd toe noted on the prior exam is been removed. Postop changes at the 2nd PIP joint. Chronic changes at the 3rd through 5th PIP joints. Single screw across the shaft of the 1st proximal phalanx is well seated and is intact across a healing osteotomy. Small plantar calcaneal spur. Mild hallux valgus deformity. Small accessory navicular. LisFranc joint is well aligned. Impression: 1. Postop changes involving the 1st proximal phalanx and 2nd metatarsal. Wire in the 2nd toe noted on the 11/06/24 plain films has been removed. 2. No acute process. 3. Chronic changes otherwise noted. Transcribed by: Viktoria Silver 01/15/2025 13:51 Sincerely, Chacorta Romero MD Electronically Signed: 01/15/2025 16:00 Thank you for referring KRISTAN LEVY to the 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 Surgery one month ago. PROCEDURE: Left foot three views. COMPARISON: No exams were available for comparison. FINDINGS: Postoperative findings including screw through the first phalanx osteotomy, pin through the second ray with proximal interphalangeal arthrotomy, and metatarsal arthroplasty device. Other irregular interphalangeal joints suggest multifocal arthrotomies. Small plantar calcaneal heel spur. IMPRESSION: 1. Moderate forefoot postop site swelling. 2. Surgical replacement of the second metatarsal head. Transcribed by: LAY TAVERA 11/06/2024 11:46 Sincerely, ROSEY CERRATO MD Electronically Signed: 11/06/2024 12:59 Thank you for referring KRISTAN LEVY to the [facility] - [place], [id number] Reason For Referral Reason Referral to [facility] Diagnosis 1 Osteonecrosis due to previous trauma, left foot (M87.275) Referral Organization [facility] (PODI[facility]) Referring Provider First Name Raoul Referring Provider Last Name Javed Referring Provider Speciality Podiatry Referred Provider Specialty Podiatry Referral Priority Routine Reason patient will call fo r appt Diagnosis 1 Freibergs disease, l eft (M92.72) Diagnosis 2 Contracture, left fo ot (M24.575) Diagnosis 3 Hallux valgus (acqui red), left foot (M20.12) Diagnosis 4 Osteonecrosis due to previous trauma, left foot (M87.275) Diagnosis 5 Other hammer toe(s) (acquired), left foot (M20.42) Referral Organization [facility] Referring Provider First Name Danish Referring Provider Martin Name Gerardo Referring Provider Speciality Podiatry Referred Provider Specialty Physical The rapist Referral Priority Routine Reason Please call patient for appt evaluated and treat Diagnosis 1 Elevated parathyroid hormone (E34.9) Referral Organization [facility] Referring Provider First Name Danish Referring Provider Last Name Gerardo Referring Provider Speciality Podiatry Referred Provider Raquel Moss Referred Provider Specialty Endocrinolog y Referral Priority Routine Reason Please call patient for evaluation Diagnosis 1 Elevated parathyroid hormone (E34.9) Referral Organization [facility] Referring Provider First Name Danish Referring Provider Last Name Carrillo Referring Provider Speciality Podiatry Referred Provider Zoe Garrett Referred Provider Specialty Endocrinolog y Referral Priority Routine Reason Please call the judith ent to schedule evaluation Diagnosis 1 Elevated parathyroid hormone (E34.9) Referral Organization [facility] Referring Provider First Name Danish Referring Provider Last Name Carrillo Referring Provider Speciality Podiatry Referred Provider Jing Peres Referred Provider Specialty Otolaryngolo gy Referral Priority Routine Medications Medication SIG (Take, Route, Frequency, Duration) Notes Start Date End Date Status Wellbutrin ActiveMultivitaminActiveOzempic (0.25 or 0.5 MG/DOSE) 2 MG/3MLINJECT 0.5 MG SUBCUTANEOUS ONCE WEEKLY Subcutaneous; Duration: 28 DaysNot-TakingbuPROPion HCl ER (XL) 300 MGTAKE 1 TABLET BY MOUTH EVERY DAY IN THE MORNING Oral; Duration: 90 DaysNot-TakingVenlafaxine HClNot-TakingBone Growth StimulatorUse as directed Daily; Duration: 90 daysmedically nwpwxyata68/04/2025ActiveKnee Walker -as directed - Daily; Duration: 365 daysMedically Uaejtrlgx81/10/2025UnknownEffexor Active Social History Tobacco Use: Social History Observation Description Date Details (start date - stop date) Never Smoker NA - NA Tobacco Use/Smoking Question Answer Notes Patient is a nonsmoker Problems Problem Type SNOMED Code ICD Code Onset Dates Problem Status W/U Status Risk Notes Problem Localized, primary o steoarthritis of the ankle and/or foot (435336686) Primary osteoarthritis, unspecified ankle and foot (M19.079) ActiveconfirmedProblemAcquired hallux valgus (21795127)Hallux valgus (acquired), left foot (M20.12)ActiveconfirmedProblemAcquired hallux rigidus (8457789)Hallux rigidus, left foot (M20.22)ActiveconfirmedProblemAcquired hammer toe of left foot (9719881448537043)Other hammer toe(s) (acquired), left foot (M20.42)Active confirmedProblemMuscle atrophy (50574029)Muscle wasting and atrophy, not elsewhere classified, left ankle and foot (M62.572)ActiveconfirmedProblem Osteonecrosis due to previous trauma, left foot (M87.275)ActiveconfirmedProblem Other osteonecrosis, left foot (M87.875)ActiveconfirmedProblemDisorder of endocrine system (351240201)Elevated parathyroid hormone (E34.9)Activeconfirmed ProblemLocalized, primary osteoarthritis of the ankle and/or foot (799423740) Primary osteoarthritis, left ankle and foot (M19.072)ActiveconfirmedProblem Contracture of joint of left ankle (disorder) (306835819874088)Contracture, left ankle (M24.572)ActiveconfirmedProblemContracture of joint of left foot (disorder) (660481099312008)Contracture, left foot (M24.575)Activeconfirmed ProblemNonunion of fracture (098872045)Nondisplaced fracture of second metatarsal bone of left foot with nonunion (S92.325K)ActiveconfirmedProblem 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)Freibergs disease, left (M92.72) Activeconfirmed Vital Signs Heart Rate 70 /min 01/15/2025 Dsfqwsvhfxg16.1 degrees Zxberlwiey31/04/2025lood pressure jzkhsjmda64 mm Hg 01/15/20252851Skkghexn47 %05/22/20245905Ieoqrh94 in02/19/2025lood pressure mm Hg01/15/20255008Nnyjqz378 lbs104/21/2024BMI24.36 kg/m202/19/2025 Encounters Encounter Location Date Provider Diagnosis [facility] [address] [place] [address] 06/07/2024 Danish Carrillo [facility] [address] [place] [address]/[facility] [address] [place] [address]/[facility] [address] [place] [address]/10/2024[facility] [address] [place] [address] 02/28/2025Kyle SmithElevated parathyroid hormone E34.9[facility] [address] [place] [address]/Mitchel RogalinerRadiology [address] [place] [address]/Radiology ProviderRadiology [address] [place] [address]/Radiology ProviderRadiology [address] [place] [address]/Radiology ProviderT[facility]ed [facility] [address] [place] [address]/Kyle SmithHallux valgus (acquired), left foot M20.12 ; Freibergs disease, left M92.72 ; Osteonecrosis due to previous trauma, left foot M87.275 and Other hammer toe(s) (acquired), left foot M20.42[facility] [address] [place] [address]/01/2025Kyle SmithHallux valgus (acquired), left foot M20.12 ; Freibergs disease, left M92.72 ; Osteonecrosis due to previous trauma, left foot M87.275 ; Other hammer toe(s) (acquired), left foot M20.42 ; Atrophic plantar fat pad L90.9 ; Contracture, left ankle M24.572 and Contracture, left foot M24.575[facility] ([facility] [place] [address]/11/2024[facility] HospitalOther hammer toe(s) (acquired), left foot M20.42 ; Other deformities of toe(s) (acquired), left foot M20.5X2 ; Hallux valgus (acquired), left foot M20.12 ; Osteonecrosis due to previous trauma, left foot M87.275 and Primary osteoarthritis, unspecified ankle and foot M19.079[facility] ([facility])[address] [place] [address]/07/2024Peter HighlanderOsteonecrosis due to previous trauma, left foot M87.275 ; Hallux rigidus, left foot M20.22 ; Other deformities of toe(s) (acquired), left foot M20.5X2 ; Other hammer toe(s) (acquired), left foot M20.42 and Primary osteoarthritis, unspecified ankle and foot M19.079[facility] [address] [place] [address]/Kyhuseyin Carrillo Freibergs disease, left M92.72 ; Hallux rigidus, left foot M20.22 ; Other hammer toe(s) (acquired),left foot M20.42 ; Contracture, left foot M24.575 and Osteonecrosis due to previous trauma, left foot M87.275[facility] [address] [facility] [place] [address]/07/2024Danish Carrillo Hallux rigidus, left foot M20.22 ; Nondisplaced fracture of second metatarsal bone of left foot with nonunion S92.325K ; Freibergs disease, left M92.72 and Osteonecrosis due to previous trauma, left foot M87.275[facility] [address] [place] [address] 02/19/2025[facility] [address] [place] [address]Kyle GerardoFreibergs disease, left M92.72 ; Hallux valgus (acquired), left foot M20.12 ; Other hammer toe(s) (acquired), left foot M20.42 ; Osteonecrosis due to previous trauma, left foot M87.275 and Contracture, left foot M24.575[facility] [address] [place] [address]/Kyle SmithFreibergs disease, left M92.72 ; Hallux valgus (acquired), left foot M20.12 ; Other hammer toe(s) (a cquired), left foot M20.42 ; Osteonecrosis due to previous trauma, left foot M87.275 and Contracture, left foot M24.575[facility] [address] [place] [address]/Kyle SmithOther osteonecrosis, left foot M87.875 ; Primary osteoarthritis, left ankle and foot M19.072 ; Muscle wasting and atrophy, not elsewhere classified, left ankle and foot M62.572 ; Other hammer toe(s) (acquired), left foot M20.42 ; Contracture, left foot M24.575 ; Contracture, left ankle M24.572 and Hallux valgus (acquired), left foot M20.12 Assessments Encounter Date Diagnosis (ICD Code) Assessment Notes Treatment Notes Treatment Clinical Notes Section Notes 04/25/2024 Other hammer toe(s) (acquired), left foot (ICD-10 - M20.42) Patient seen and evaluated. Patient education provided and all questions answered to her satisfaction. She has had worsening pain, deformity and dysfunction associate with the left forefoot and has undergone multiple surgeries on this foot. I am most concerned regarding her second metatarsal head with a large cystic formation and flattening of the head I am concerned that the patient has developed avascular necrosis.She is interested in surgical correction by recommended CT scan for diagnostic and surgery procedure selection purposes. She will follow-up after the CT scan is hfajemjv04/08/2025Other deformities of toe(s) (acquired), left foot (ICD-10 - M20.5X2)05/22/2024 Osteonecrosis due to previous trauma, left foot (ICD-10 - M87.275)Patient seen and evaluated. Patient education provided and all questions answered to her satisfaction. CT scan confirms AVN of the second met head and I discussed potential risks and benefits of surgical intervention. I specifically discussed the pros and cons of partial second met resection alone versus partial second metatarsal replacement with 3D printed implant. I also discussed that she would also likely benefit from cheilectomy versus first metatarsal joint fusion and correction of the toe deformities. Unfortunately my facility is no longer allowing 3D printing implants so I provided referral. She is happy with this plan and may follow-up with me as gmrvyl2405/22/2024Hallux rigidus, left foot (ICD-10 - M20.22)06/07/2024Hallux valgus (acquired), left foot (ICD-10 - M20.12) 06/07/2024Freibergs disease, left (ICD-10 - M92.72) Patient presents today for tertiary opinion. She has had ongoing pain to the left foot for several years. She has tried and failed at least 3 previous surgical interventions. Extensive discussion hadwith patient regarding the nature and etiology of this deformity/condition. She has tried and failed multiple corticosteroid injections, shoe gear modifications, lifestyle modifications, custom orthotics, previous surgical intervention, anti- inflammatory medication without success. 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 We discussed both the surgical and non-surgical treatment options as well as all of the benefits and risks of each. It was discussed in detail with the patient that surgical intervention will be recommended given severity of deformity, progression of symptoms, worsening pain, failure of conversative treatment. We recommend surgical intervention in hopes of decreasing pain, easing ambulation, improve quality of life, reduce deformity and restore anatomic alignment, and improve function of the extremity. All questions were answered to the patients apparent satisfaction. We did specifically discuss various treatment options including traditional metatarsal head excision, metatarsal osteotomy, second metatarsal phalangeal joint arthrodesis, and replacement of second metatarsal phalangeal joint with custom 3D implant. Given her failure of previous surgery, extensive pathology, and desired activity level I feel that custom 3D implant would be most appropriate. The patient verbalized and demonstrated understanding. Patient is amenable to surgical intervention. Full discussion below. Independent interpretation of tests. My independent interpretation of the radiographs and CT of theleft foot is as follows. 3 views of the left foot were reviewed which demonstrated mild hallux valgus deformity with increased intermetatarsal angle, increased 1st metatarsal phalangeal joint angle with lateral deviation of the hallux, hypertrophic medial eminence of the 1st metatarsal, subtle lateral subluxation of the 1st ray sesamoids. Postsurgical changes noted to lesser digits 2 through 5. There is sclerotic and cystic changes most compatible with severe osteoarthritis and superimposed avascular process of the second metatarsal. Overlying soft tissue swelling is noted. Mild degenerative changes to the 1st metatarsophalangeal joint. Shortened first metatarsal is also noted. The previousimages and report were accessed through EMR Plan: proceed with surgical intervention and custom 3D implant design. Advised the patient this process will likely take 2 to 3 months. She is to maintain supportive shoe gear with orthotics in the meantime. I discussed in detail double osteotomy of the first ray, reconstruction of the second metatarsal phalangeal joint with 3D implant, gastrocnemius recession, hammertoe correction left second digit, flexor tenotomy of digits 3 and 4, left foot. The patient was in full agreement and demonstrated understanding of all risks, benefits, alternatives, and prognosis. Surgery intervention is indicated for above reasons. Furthermore the patient has been unsuccessful with non- operative treatment and/or conservative treatment is no longer a viable option. It was discussed with the patient that compliance postoperatively is of utmost importance. Any deviation on behalf of the patient will decrease the chances of a successful outcome. Patient acknowledged, understands, and would like to move forward withsurgery as discussed. I educated the patient to their apparent understanding on potential complications including but not limited to infection, pain, bleeding, swelling, weakness, scar formation, nerve injury, CRPS, recurrence, delayed healing, need for additional surgery, blood clots, loss of function, anesthesia risks, and loss of limb/life. Patient to return to clinic in 1 week preop. Please call the office with any questions or concerns 10/08/2024Other osteonecrosis, left foot (ICD-10 - M87.875)10/08/2024Primary osteoarthritis, left ankle and foot (ICD-10 - M19.072)09/25/2024Hallux valgus (acquired), left foot (ICD-10 - M20.12)09/25/2024Freibergs disease, left (ICD-10 - M92.72) Patient presents today for tertiary opinion. She has had ongoing pain to the left foot for several years. She has tried and failed at least 3 previous surgical interventions. Extensive discussion hadwith patient regarding the nature and etiology of this deformity/condition. She has tried and failed multiple corticosteroid injections, shoe gear modifications, lifestyle modifications, custom orthotics, previous surgical intervention, anti- inflammatory medication without success. 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 We discussed both the surgical and non-surgical treatment options as well as all of the benefits and risks of each. It was discussed in detail with the patient that surgical intervention will be recommended given severity of deformity, progression of symptoms, worsening pain, failure of conversative treatment. We recommend surgical intervention in hopes of decreasing pain, easing ambulation, improve quality of life, reduce deformity and restore anatomic alignment, and improve function of the extremity. All questions were answered to the patients apparent satisfaction. We did specifically discuss various treatment options including traditional metatarsal head excision, metatarsal osteotomy, second metatarsal phalangeal joint arthrodesis vs arthroplasty, and replacement of second metatarsalphalangeal joint with custom 3D implant. Given her failure of previous surgery, extensive pathology, and desired activity level I feel that custom 3D implant would be most appropriate. The patient verbalized and demonstrated understanding. Patient is amenable to surgical intervention. Full discussion below. Prescription for knee walker dispensed to patient I discussed in detail double osteotomy of the first ray, reconstruction of the second metatarsal phalangeal joint with 3D implant, gastrocnemius recession, hammertoe correction left second digit, flexor tenotomy of digits 3 and 4, fat autografting, left foot. The patient was in full agreement and demonstrated understanding of all risks, benefits, alternatives, and prognosis. Surgery intervention is indicated for above reasons. Furthermore the patient has been unsuccessful with non-operative treatment and/or conservative treatment is no longer a viable option. It was discussed with the patientthat compliance postoperatively is of utmost importance. Any deviation on behalf of the patient will decrease the chances of a successful outcome. Patient acknowledged, understands, and would like tomove forward with surgery as discussed. I educated the patient to their apparent understanding on potential complications including but not limited to infection, pain, bleeding, swelling, weakness, scar formation, nerve injury, CRPS, recurrence, delayed healing, need for additional surgery, blood clots, loss of function, anesthesia risks, and loss of limb/life. New RX for knee walker Patient to return to clinic in 2 weeks post op. Please call the office with any questions or concerns 10/23/2024Freibergs disease, left (ICD-10 - M92.72) Patient examined and evaluated The patient was educated on clinical examination findings, postoperative prognosis and protocol. All questions were answered to patient's apparent satisfaction. Post op dressing removed and new dressing applied. Sutures were removed at today's visit and steri-strips applied overlying. Procedure: A multi-layer compressive dressing consisting of cast padding and Robert was applied to theleft lower extremity. A 5 x 30 short leg fiberglass posterior splint was then applied and reinforced with Robert wraps. Patient tolerated well. Per our post-operative protocol patient is to remain in splint until she obtains a pneumatic cam walker. She can progress to weightbearing to the heel with use of cam boot for essential functions, otherwise nonweightbearing. New Rx cam walker dispensed. Patient to RTC in 2 weeks with xrays Please, call the office with any questions or concerns 11/06/2024Freibergs disease, left (ICD-10 - M92.72) Patient examined and evaluated The patient was educated on clinical examination findings, postoperative prognosis and protocol. All questions were answered to patient's apparent satisfaction. Plan: EBM orthotics size 9, camwalker until 10 weeks (12/24/2024) WIll order physical therapy Patient to RTC in 8 weeks with xrays Please, call the office with any questions or concerns 01/15/2025Freibergs disease, left (ICD-10 - M92.72)01/15/2025Hallux rigidus, left foot (ICD-10 - M20.22) The patient presents today with chronic symptoms with exacerbation and reports moderate to severe pain involving the first ray, particularly across the hallux metatarsophalangeal (MPJ) and interphalangeal (IPJ) joints. She appeared visibly frustrated during today's visit due to her ongoing discomfort and functional limitations. We discussed with her that radiographs now demonstrate relatively rapid progression of osteoarthritis involving the hallux interphalangeal joint, which is a notable change compared to prior imaging performed approximately two months ago, where arthritic findings were minimal. Additionally, she demonstrates hardware failure of her custom 3D implant involving the second metatarsal, with fracture of the intramedullary stem and early reactive changes, consistent with implant fatigue or mechanical overload. Her previous proximal phalanx osteotomy has since healed fully. Given the combination of new arthritic progression and implant failure, there is high likelihood that further surgical intervention will be required to restore alignment, alleviate pain, and address implant instability. Independent interpretation of test: Radiographs of the left foot dated 01/15/2025 were independently reviewed. AP, oblique, and lateralviews reveal extensive postsurgical changes to the second metatarsal, including a custom 3D implantwith early hardware failure, dorsal displacement of the distal segment, and surrounding periosteal reaction consistent with mechanical stress. The previous proximal phalanx osteotomy of the hallux appears fully consolidated. The hallux interphalangeal joint demonstrates moderate degenerative changes with osteophyte formation and joint space narrowing, while the hallux MPJ shows [id number] degenerative change. No evidence of orthopedic hardware failure is seen within the hallux. Images were accessed through EMR and contributed to medical decision-making by confirming structural progression and guiding the need for advanced imaging. Medical necessity of CT: A CT scan of the left foot was ordered today. Advanced cross-sectional imaging is medically necessary for a definitive diagnosis and precise evaluation of suspected structural pathology involving thefirst MPJ, hallux IPJ, and postsurgical 3D implant at the second MPJ. Standard radiographs cannot ad equately assess implant integrity, bony integration, or articular surface detail in this complex, post-surgical setting. CT imaging will also provide three- dimensional evaluation of bone stock, hardware position, and joint morphology, which is essential for accurate surgical planning. Proceeding without advanced imaging would risk incomplete assessment of underlying failure mechanisms and inappropriate surgical decision-making. PLAN: Conservative management: Continue use of supportive shoe gear and avoid aggravating activities to limit further mechanical overload across the forefoot and hallux. Advanced imaging: Proceed with CT scan of the left foot for surgical planning and definitive assessment of implant failure and degenerative progression. Future considerations: Pending CT findings, surgical options may include implant removal, revision arthroplasty, or arthrodesis of the affected joints, depending on viability of bone stock and joint integrity. Follow-up: Return for review of CT results to finalize treatment plan and discuss surgical timing if indicated. 02/19/2025Hallux rigidus, left foot (ICD-10 - M20.22)02/19/2025Nondisplaced fracture of second metatarsal bone of left foot with nonunion (ICD-10 - S92.325K) The patient presents with ongoing exacerbation of chronic postoperative pain and deformity of the left forefoot. Her symptoms are most pronounced over the hallux and 2nd metatarsophalangeal joint. She continues to experience significant discomfort and functional limitation following prior reconstructive surgery. Clinical and radiographic findings are consistent with: Failure of orthopedic hardware at the 2nd metatarsophalangeal joint implant with fracture of the intramedullary stem. Nonunion of both the 2nd metatarsal and proximal phalanx osteotomy sites, with persistent fracture gap and surrounding sclerosis. Secondary degenerative arthrosis and pain of the hallux interphalangeal joint, consistent with overuse and mechanical overload secondary to prior deformity correction. History of early postoperative noncompliance with weight-bearing restrictions, which likely contributed to incomplete osseous healing and progressive deformity. The patient remains dissatisfied with her surgical outcome despite extensive conservative care and mechanical offloading. Her current presentation is consistent with mechanical implant failure, symptomatic nonunion, and secondary joint degeneration, all of which warrant surgical intervention for pain relief and jainism of function. INDEPENDENT INTERPRETATION OF TEST: CT scan of the left foot was independently reviewed. Axial, coronal, and sagittal images demonstrate: Failure of orthopedic hardware at the 2nd metatarsal with fracture of the intramedullary stem of the implant. Incomplete healing and nonunion of the 2nd metatarsal with a fracture gap diastasis measuring 2.8 mm, with cortical sclerosis and no evidence of bridging callus formation. Incomplete healing of the proximal phalanx osteotomy with dorsal displacement and fracture gap diastasis of 1.4 mm. Surrounding bone sclerosis consistent with chronic nonunion and mechanical failure. Findings were accessed through EMR and directly contributed to medical decision- making by confirming implant failure and nonunion requiring surgical correction. MEDICAL NECESSITY & TREATMENT RATIONALE: Given the above findings, continued conservative management would be non- beneficial and potentiallydetrimental. The patient has failed all reasonable nonsurgical options, including mechanical offloading, orthotics, physical therapy, and activity modification. Surgical intervention is medically necessary to: Remove failed orthopedic hardware and eliminate ongoing mechanical irritation. Achieve osseous union through definitive arthrodesis of the hallux interphalangeal joint to restorealignment and long-term stability. Prevent progressive deformity, chronic pain, and further disability. Improve gait function and weight-bearing tolerance necessary for daily living. A bone stimulator was prescribed to optimize osseous healing potential and reduce recurrence risk, given the patient's history of nonunion and contributing systemic factors. Bone panel labs serologies was also ordered to make sure patient is medically optimized prior to any additional intervention I discussed in detail removal of hardware x2, arthrodesis of the hallux interphalangeal joint, bonemarrow transfer from the calcaneus to the hallux arthrodesis site, possible corrective osteotomy ofthe proximal phalanx of the hallux of the left lower extremity. The patient was in full agreement and demonstrated understanding of all risks, benefits, alternatives, and prognosis. Surgery intervention is indicated for above reasons. Furthermore the patient has been unsuccessful with non-operativetreatment and/or conservative treatment is no longer a viable option. It was discussed with the patient that compliance postoperatively is of utmost importance. Any deviation on behalf of the patient will decrease the chances of a successful outcome. Patient acknowledged, understands, and would like to move forward with surgery as discussed. I educated the patient to their apparent understanding on potential complications including but not limited to infection, pain, bleeding, swelling, weakness, scar formation, nerve injury, CRPS, recurrence, delayed healing, need for additional surgery, blood clots, loss of function, anesthesia risks, and loss of limb/life. 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)01/15/2025Other hammer toe(s) (acquired), left foot (ICD-10 - M20.42) 11/06/2024Hallux valgus (acquired), left foot (ICD-10 - M20.12)10/23/2024Hallux valgus (acquired), left foot (ICD-10 - M20.12)09/25/2024Osteonecrosis due to previous trauma, left foot (ICD-10 - M87.275)10/08/2024Muscle wasting and atrophy, not elsewhere classified, left ankle and foot (ICD-10 - M62.572) 06/07/2024Osteonecrosis due to previous trauma, left foot (ICD-10 - M87.275) 05/22/2024Other deformities of toe(s) (acquired), left foot (ICD-10 - M20.5X2) 04/25/2024Hallux valgus (acquired), left foot (ICD-10 - M20.12)04/25/2024 Osteonecrosis due to previous trauma, left foot (ICD-10 - M87.275)05/22/2024 Other hammer toe(s) (acquired), left foot (ICD-10 - M20.42)06/07/2024Other hammer toe(s) (acquired), left foot (ICD-10 - M20.42)10/08/2024Other hammer toe(s) (acquired), left foot (ICD-10 - M20.42)09/25/2024Other hammer toe(s) (acquired), left foot (ICD-10 - M20.42)10/23/2024Other hammer toe(s) (acquired), left foot (ICD-10 - M20.42)11/06/2024Other hammer toe(s) (acquired), left foot (ICD-10 - M20.42)01/15/2025ontracture, left foot (ICD-10 - M24.575)02/19/2025 Osteonecrosis due to previous trauma, left foot (ICD-10 - M87.275)01/15/2025 Osteonecrosis due to previous trauma, left foot (ICD-10 - M87.275)11/06/2024 Osteonecrosis due to previous trauma, left foot (ICD-10 - M87.275)10/23/2024 Osteonecrosis due to previous trauma, left foot (ICD-10 - M87.275)09/25/2024 Atrophic plantar fat pad (ICD-10 - L90.9)10/08/2024ontracture, left foot (ICD- 10 - M24.575)05/22/2024Primary osteoarthritis, unspecified ankle and foot (ICD- 10 - M19.079)04/25/2024Primary osteoarthritis, unspecified ankle and foot (ICD- 10 - M19.079)06/23/2025Contracture, left ankle (ICD-10 - M24.572)09/25/2024 Contracture, left ankle (ICD-10 - M24.572)5Contracture, left foot (ICD- 10 - M24.575)5Contracture, left foot (ICD-10 - M24.575)09/25/2024 Contracture, left foot (ICD-10 - M24.575)10/08/2024Hallux valgus (acquired), left foot (ICD-10 - M20.12)06/07/20243497Qutna34/08/3976Wjqup66/30/2025Other Plan Of Treatment Pending Test Test Name Order Date CT Foot LT w/o contrast * (Optional 3D R endering) 04/25/2024 CT Foot LT w/o contrast * (Optional 3D R endering) 01/15/2025 Insurance Providers Payer Name Payer Address Payer Phone Subscriber Number Group Number Insured Name Patient Relationship to Insured Coverage Start Date Coverage End Date [facility] [address] [address] [place] [address] [id number] Mike Levy Spouse - patient is the spouse of the insured Medical (General) History Surgical History Surgery Date(Month/Year) CTS [id number] hammer toe -[id number] & A
--- OUTSIDE RECORDS SUMMARY | 2025-04-17 08:47 | XMS_ITS | Patient Health Record ---
Author Organization [facility] Address [address] [place] [address] Care Team Providers Care Boat Joiner Name Role Phone Alexandra Morales Primary Care Provider Unavailabl e XXXMorris-PtaMacey szymanski Unavailable [phone] Hilary Lemus Unavailable [phone] Reason For Referral No Information Medications Medication SIG (Take, Route, Frequency, Duration) Notes Start Date End Date Status Vitamin D (Ergocalciferol) 85426 UNIT Ca psule take 1 capsule by mouth every week; Duration: 28 ActiveMirtazapine 15 MG Tablet1 tablet at bedtime Orally Once a day; Duration: 30 day(s)ActiveALPRAZolam 0.25 MG Tablet1 tablet Orally Twice a day; Duration: 7 days10/06/2018ActiveWellbutrin XL 300 MG Tablet Extended Release 24 Hour1 tablet in the morning Orally Once a day; Duration: 30 day(s)01/12/2018Active Social History Tobacco Use: Social History Observation Description Date Details (start date - stop date) Never Smoker NA - NA Social History GeneralSocial InfoQuestionAnswerNotesTransition of Care:ER/UC/hospital since last office visit?NoSpecialist seen since last office visit?NoSubstance abuse/mental health issues of patient/familyPatient -DeniesAbility to understand healthcare/treatmentPatient:GoodTobacco Screen:Are you a:never smokerSexual Hx: Had sex in the last 12 months (vaginal, oral, or anal)?Yes? withMen only? Use protection?No? Prevention Strategies discussed:OtherHave you ever had an STD?No LMP:Partial HysterectomySocial/Support Concerns:Patient:NoAlcohol Screening:Did you have a drink containing alcohol in the past year?Yes? How often did you have a drink containing alcohol in the past year?Monthly or less (1 point)? How many drinks did you have on a typical day when you were drinking in the past year?1 or 2 (0 points)? How often did you have six or more drinks on one occasion in the past year?Less than monthly (1 point)Nosdom6BncokcaxujcsfoBlrnmdzhThhaplvmn affecting healthPoor/Risky Behaviors:Denies-Communication Barrier:Language Barrier?:No Problems Problem Type SNOMED Code ICD Code Onset Dates Problem Status W/U Status Risk Notes Problem Insomnia (180205829) Insomnia (G47.00) ActiveconfirmedProblemMixed anxiety and depressive disorder (733877161)Anxiety and depression (F41.9)ActiveconfirmedProblemAmnesia (05768859)Memory loss of unknown cause (R41.3)ActiveconfirmedProblemVitamin D deficiency (23059104)Low vitamin D level (E55.9)ActiveconfirmedProblemSkin sensation disturbance (84858234)Right arm numbness (R20.2)ActiveconfirmedProblemReduced visual acuity (98930920)Decreased visual acuity (H54.7)Activeconfirmed Plan Of Treatment No Information Insurance Providers Payer Name Payer Address Payer Phone Subscriber Number Group Number Insured Name Patient Relationship to Insured Coverage Start Date Coverage End Date [facility] [address] [address] [place] [address] [id number] NOLEN - patient is the [id number] 2017 zMEDICAID [employer] after [facility] [address] [place] [id number], ELIZABETHSelf - patient is the [id number] 2017 Medical (General) History Medical History History ICD Code Sleep problems Anxiety and ndylubcaiqS42.9level 3undefinedSurgical History Surgery Date(Month/Year) Hysterectomy without ovary removal 11/04 18
--- OUTSIDE RECORDS SUMMARY | 2025-04-17 08:48 | XMS_ITS | CCD ---
Author Organization [facility] Care Team Providers Care Haircutter Name Role Phone Unavailable Primary Care Provider UnavailMYNOR Arroyo Admitting Unavailable MYNOR PERES Attending Unavailable SAHRA DONATO Primary Care Unavailable Sahra Donato Unavailable Unavailable Jurgen Osborne Unavailable Unavailable ANA MARIA REAVES Attending Unavailable ELIAZBETH FLOWERS Primary Care Unavailable SELF, SELF Referring Unavailable Mast, Gama Unavailable Mast, Gama Unavailable Mast, DO Gama Primary Care Provider [phone] GERMAN Blackwood Attending Provider SAHRA DONATO Primary Care Physician PARAM Tracy Emergency Provider Oracio Blackwood Attending Unavailable Oracio Blackwodo Admitting Unavailable SAHRA DONATO Primary Care Unavailable Fermin Ramírez II Unavailable [phone] MD Fermin Ramírez II Attending Provider Mast, DO Gama Primary Care Provider GERMAN Blackwood Attending Provider PARAM Tracy Emergency Provider MD Fermin Ramírez II Attending Provider Mast, DO G[place] Primary Care Provider MD Fermin Ramírez II Attending Provider [phone] Claudia Sy Unavailable Mast, DO Gama Primary Care Provider Mast, DO Gama Attending Provider Mast , Gama E Primary Care Provider [phone] Mast DO, Gama Primary Care Provider [phone] Fermin Ramírez MD Attending Provider Raoul Burt DPM Attending Provider Rupesh Torres PA-C Emergency Provider Mast DO, Gama Primary Care Provider Fermin Ramírez MD Attending Provider [phone] Raoul Burt DPM Attending Provider [phone] Rupesh Torres PA-C Emergency Provider Rupesh Torres Admitting Unavailable Rupesh Torres Attending Unavailable Mast, Gama Primary Care Unavailable Fermin Ramírez II Admitting Unavailabl e Fermin Ramírez II Attending Unavailabl e Mast, Gama Primary Care Unavailable Raoul Burt Admitting Unavailable Raoul Burt Attending Unavailable Mast, Gama Primary Care Unavailable Mast DO, Gama Primary Care Provider Sahra Donato MD Primary Care Provider Mast DO, Gama Primary Care Provider [phone] GILBERTO CARRILLO Admitting Unavailable GILBERTO CARRILLO Attending Unavailable SAHRA DONATO Primary Care Unavailable GILBERTO CARRILLO Referring Unavailable SAHRA DONATO Primary Care Unavailable ELIZABETH FLOWERS Referring Unavailable GILBERTO CARRILLO Referring Unavailable ANDER GEE Attending Unavailable ELIZABETH FLOWERS Referring Unavailable Medications Current Medications MedicationDrug Class(es)DatesSig (Normalized)Sig (Original)0.25 MG, 0.5 MG Dose 3 ML semaglutide 0.68 MG/ML Pen Injector [Ozempic] (2 sources)Start: 29-36-9206Xrxmmvm (0.25 or 0.5 MG/DOSE) 2 MG/3ML 0.25 mg Subcutaneous once q week Feb, Active0.5 ML semaglutide 0.5 MG/ML Auto- Injector [Wegovy] (1 source)Start: 52-87-1656kicgro 0.25 mg by subcutaneous injection every week Wegovy 0.25 MG/0.5ML 0.25 mg Subcutaneous once a week Feb, Active acetaminophen 325 mg / oxyCODONE hydrochloride 5 mg oral tablet (20 sources)Opioid AgonistStart: 10-08-2024 End: 70-16-1958wzwXKBXBB-acetaminophen (PERCOCET) 5-325 MG per tablet Indications: Post-op pain Take 1 tablet by mouth every 6 hours as needed for Pain for up to 5 days. Intended supply: 5 days. Take lowest dose possible to manage pain Max Daily Amount: 4 tablets 20 tablet 10/08/2024 10/13/2024 Active Start: 01-17-2022 End: 69-95-6890xhxy 1 tablet by mouth every eight hours as needed for pain Oxycodone-Acetaminophen (Endocet) 5-325 mg tablet Discontinued 1 TAB PO Q8H as needed for pain 2021June 20, 2023 10:39amStart: 10-19-2017 End: 13-04-7718syvb 1-2 tablets by mouth every six hours as needed for pain Oxycodone-Acetaminophen (Percocet) 5-325 mg tablet Discontinued 1 - 2 TAB PO Q6H as needed for painOctober 19, 2017 June 20, 2023 10:39am May take 1-2 tabs q 6 hours prn painStart: 01-28-2017 End: 70-07-2455emvz 1 tablet by mouth every four to six hours as needed for pain Oxycodone-Acetaminophen (Percocet) 5-325 mg tablet Discontinued 1 TAB PO EVERY 4-6 HOURS as needed for pain January 28, 2017 October 19, 2017 9:43am0.05 ml aflibercept 40 mg/ml injection (2 sources)Vascular Endothelial Growth Factor InhibitorStart: 04-14-2020 aflibercept (EYLEA) 2 MG/0.05ML injection Apply 2 mg to eye 04/14/2020 Active ascorbic acid 500 mg chewable tablet (20 sources)Vitamin Ctake 1 tablet by mouth once dailyvitamin C (ASCORBIC ACID) 500 MG tablet Take 1 tablet by mouth daily ActiveVitamin C Wvdmmx10 hr buPROPion hydrochloride 300 mg extended release oral tablet (20 sources)AminoketoneStart: 43-70-0802xkiz 1 tablet by mouth once daily in the morningBupropion Hcl 300 mg tablet extended release 24 hr Active 0 .ROUTE .COMPLEX June 28, 2024 8:11am TAKE 1 TABLET BY MOUTH EVERY DAY IN THE MORNINGStart: 03-22-2024 End: 51-16-1010axzl 1 tablet by mouth once daily in the morningBupropion Hcl 300 mg tablet extended release 24 hr Discontinued 0 .ROUTE .COMPLEX March 22, 2024 8:25am June 28, 2024 8:11am TAKE 1 TABLET BY MOUTH EVERY DAY IN THE MORNINGStart: 84-18-7902gqbc 1 tablet by mouth once daily in the morning Bupropion Hcl 300 mg tablet extended release 24 hr Active 0 .ROUTE .COMPLEX March 22, 2024 8:25am TAKE 1 TABLET BY MOUTH EVERY DAY IN THE MORNINGStart: 83-64-7425snjl 1 tablet by mouth once daily in the morningBupropion Hcl 300 mg tablet extended release 24 hr Active 0 .ROUTE .COMPLEX March 22, 2024 7: 25am TAKE 1 TABLET BY MOUTH EVERY DAY IN THE MORNINGStart: 11-28-2023 End: 90-79-6424ntzm 1 tablet by mouth once daily in the morningBupropion Hcl 300 mg tablet extended release 24 hr Discontinued 0 .ROUTE .COMPLEX November 28, 2023 8:02am March 22, 2024 8:26am TAKE 1 TABLET BY MOUTH EVERY DAY IN THE MORNINGStart: 15-25-9215ihyh 2 tablets by mouth once daily in the morning buPROPion (WELLBUTRIN XL) 150 MG extended release tablet Take 2 tablets by mouth every morning 05/27/2020 ActiveStart: 10-18-2017 End: 65-91-6401xnsj 1 tablet by mouth once dailyBupropion Hcl 300 mg tablet extended release 24 hr Discontinued 300 MG PO Daily October 18, 2017 12:00am November 28, 2023 8:03amcalcium ascorbate 500 mg oral tablet (8 sources)Start: 17-69-5041jher 1 tablet by mouth once dailyAscorbate Calcium (Vitamin C) 500 mg tablet Active 500 MG PO Daily June 20, 2023 1:00amcalcium chloride 0.0014 meq/ml / potassium chloride 0.004 meq/ml / sodium chloride 0.103 meq/ml / sodium lactate 0.028 meq/ml injectable solution (1 source)Start: 16-53-3267LealhDKAqmm, at 125 mL/hr, CONTINUOUS, Starting on Tue10/08/24 at 1100, Pre-op (day of surgery)Diclofenac (20 sources)Nonsteroidal Anti-inflammatory DrugStart: 36-89-3365Oudeopmelm Sodium (Voltaren Arthritis Pain) 1 % gel Active 0 TOPICAL .COMPLEX as needed for pain January 06, 2024 12:46pm Apply 1-2 grams to the affected Externally 4-5 times a day topically prn painStart: 31-23-2944Ijkopclsgm Sodium (Voltaren Arthritis Pain) 1 % gel Active 0 TOPICAL .COMPLEX as needed for pain January 06, 2024 11:46am Apply 1-2 grams to the affected Externally 4-5 times a day topically prn painStart: 06-20-2023 End: 68-26-4374Ytvzvvmgss Sodium (Voltaren Arthritis Pain) 1 % gel Discontinued TOPICAL as needed January 06, 2024 10:39am January 06, 2024 12:49pm FreeTextSig: Apply 1-2 grams to the affected Externally 4-5 times a day; Note: Source Status: TakingPRN; Refills: 3; Qty: 100 grams; Provider: Darrell Christensen II ( )Start: 66-36-4347Zekvhmup 1 % Apply 1-2 grams to the affected Externally 4-5 times a day for 30 days Feb, ActiveVoltaren 1 % Apply 1-2 grams to the affected Externally 4-5 times a day for 30 days PRN ActiveVoltaren 1 % Apply 1-2 grams to the affected Externally 4-5 times a day for 30 days Sdigwc89 ml lidocaine hydrochloride 10 mg/ml injection (1 source)Antiarrhythmic, Amide Local AnestheticStart: 90-12-6000irko 1 dose intravenously once daily1 mL, IntraDERmal, ONCE PRN, 1 dose, Starting on Tue10/09/24 at 0000, Until Discontinued, IV start,Pre-op (day of surgery)Start: 91-91-7441vkjw 1 dose intravenously once daily1 mL, IntraDERmal, ONCE PRN, 1 dose, Starting on Tue10/09/24 at 0000, Until Discontinued, IV start,Pre-op (day of surgery)MULTIPLE VITAMIN PO (2 sources)take 1 tablet by mouth once dailyMULTIPLE VITAMIN PO Take 1 tablet by mouth daily ActiveMultivitamin preparation (20 sources)Multivitamin Activemultivitamin with minerals (Cerovite) 18-400 mg- mcg tablet tablet (5 sources)take 1 tablet by mouth in the morningmultivitamin with minerals (Cerovite) 18-400 mg-mcg tablet tablet Take 1 tablet by mouth in the morning. SmscaqHvrwjaaihsih-Vklj-Wuhuj Acid (Multi-Day With Iron) 18-400 mg-mcg Tablet (16 sources)Start: 07-40-4236flvv 1 tablet by mouth once daily Igaseoibeqat-Vvth-Zmalb Acid (Multi-Day With Iron) 18-400 mg-mcg Tablet Active 1 TAB PO Daily January 27, 2017 11:00pmStart: 36-63-3494huxf 1 tablet by mouth once oqiawIyeflnaxlghn-Fbnl-Vwkur Acid (Multi-Day With Iron) 18-400 mg-mcg Tablet Active 1 TAB PO Daily January 28, 2017 12:00amnaloxone 0.4 mg in 10 mL sodium chloride syringe (1 source)Start: 12-93-3410CkzjuSUHobj, PRN, Opioid Reversal, Starting on Tue10/08/24 at 1653, PRN if respiratory rate is lessthan 6/min and patient is difficult to arouse then notify physician STAT. Mix 9 mL of sodium chloride 0.9% with 0.4 mg (1 mL) of naloxone (NARCAN) in 10 mL syringe. (Note: dilution is 0.04 mg/mL) Give 0.08 mg (2 mL of special dilution), slow IV push, repeat up to 0.4 mg (10 mL) or until patient is responsive to physical stimulation and respiratory rate is equal to or greater than 6 breaths/min. Continue to observe, if no response within 3 minutes of administration of 0.4 mg (10 mL) total, repeat dose (0.4 mg as administered previously). Concentration 0.04 mg/mL, PACU onlyozempic (0.25 or 0.5 mg/dose) 2 mg/3ml solution pen-injector (4 sources)Start: 73-35-4101yxbkcj 0.5 mg by subcutaneous injection every week Ozempic (0.25 or 0.5 MG/DOSE) 2 MG/3ML 0.5 mg Subcutaneous once q week Feb, ActiveStart: 68-61-3629Tiyqqnn (0.25 or 0.5 MG/DOSE) 2 MG/3ML 0.25 mg Subcutaneous once q week Feb, Activeprazosin 2 mg oral capsule (20 sources)alpha-Adrenergic BlockerStart: 03-12-2024 End: 81-02-9120tptl 1 capsule by mouth once daily at bedtimePrazosin 2 mg capsule Active 2 MG PO Daily at bedtime September 03, 2024 6:53amStart: 01-30-2024 End: 01-68-8154ckaa 1 capsule by mouth once daily at bedtimePrazosin 1 mg capsule Discontinued 0 .ROUTE .COMPLEX January 30, 2024 6:44am March 12, 2024 10:15am TAKE 1 CAPSULE BY MOUTH EVERY DAY AT BEDTIMEStart: 01-06-2024 End: 15-32-4797bizd 1 capsule by mouth once daily at bedtimePrazosin 1 mg capsule Discontinued 1 MG PO Daily at bedtime January 06, 2024 12:49pm 2023 6:44am72 hr scopolamine 0.0139 mg/hr transdermal system (18 sources)AnticholinergicStart: patch, TransDERmal, Administer over 72 Hours, ONCE, On Tue10/08/24 at 1100, For 1 dose, Delivers 1 mg over 3 days. Apply patch to hairless area behind the ear. Do NOT cut patch., Pre-op (day of surgery)Start: 06-20-2023 End: 40-80-8893Xtloeuhbweh Base 1 mg over 3 days patch 3 day Discontinued TRANSDERML June 20, 2023 1:00am June 20, 2023 10:52am FreeTextSi patch to skin behind the ear as needed Transdermal every 3 days; Note: Source Status: Not-TakingundefinedPRN; Refills: 0; Provider: Cruzito Mclaughlin-Scop 1 MG/3DAYS 1 patch to skin behind the ear as needed Transdermal every 3 days for 12 days Not-Taking/PRN0.25 mg, 0.5 mg dose 1.5 ml semaglutide 1.34 mg/ml pen injector (5 sources)semaglutide (Ozempic) 2 MG/1.5ML solution pen-injector Inject 0.5 mg under the skin Active5 ml sodium chloride 9 mg/ml injection (7 sources)Start: -40 mL, IntraVENous, EVERY 12 HOURS SCHEDULED (2 times per day), First dose on Tue10/08/24 at 2100, Until Discontinued, For Line Patency: Peripheral IV = 5 mL; Midline or Central Line = 10 mL/lumen.If following IV push medication, administer flush at same rate as the IV push. Flush volume is determined by type of infusion therapy being given. For non- viscous solutions use: Peripheral IV = 5 mL Midline or Central Line = 10 mL/lumen For viscous solutions (i.e. blood components, parenteral nutrition, contrast media, or after obtaining blood sample) use: Peripheral IV = 10 mL Midline or CentralLine = 20 mL/lumen, PACU onlyStart: 71-59-5189TuoskAKAedv, at 125 mL/hr, CONTINUOUS, Starting on Tue10/08/24 at 1100, Pre-op (day of surgery) Start: 37-19-0449qznc 20 mL intravenously every hourIntraVENous, at 5-250 mL/hr, PRN, if patient receiving piggyback infusions and maintenance fluids are not ordered OR KVO fluids to protect IV site / prevent frequent line interruptions/ long duration, Starting on Tue10/08/24 at 1653, For piggyback infusion, administer at same rate as piggyback for a total of 25 mL. Enter 25 mL into dose field and piggyback rate into rate field of order. If piggyback is infusing at a rate less than 100 mL/hr, enter 25 mL into dose field and 100 mL/hr into rate field of order. For KVO fluids, enter rate of 20 mL/hr or less into rate field of order., PACU onlyStart: -40 mL, IntraVENous, EVERY 12 HOURS SCHEDULED (2 times per day), First dose on Tue10/08/24 at 1100, Until Discontinued, For Line Patency: Peripheral IV = 5 mL; Midline or Central Line = 10 mL/lumen.If following IV push medication, administer flush at same rate as the IV push. Flush volume is determined by type of infusion therapy being given. For non-viscous solutions use: Peripheral IV = 5 mL Midline or Central Line = 10 mL/lumen For viscous solutions (i.e. blood components, parenteral nutrition, contrast media, or after obtaining blood sample) use: Peripheral IV = 10 mL Midline or CentralLine = 20 mL/lumen, Pre-op (day of surgery)Start: - 40 mL, IntraVENous, PRN, Starting on Tue10/08/24 at 1653, Until Discontinued, Line Care, After every IV line use, For Line Patency: Peripheral IV = 5 mL; Midline or Central Line = 10 mL/lumen. If following IV push medication, administer flush at same rate as the IV push. Flush volume is determined by type of infusion therapy being given. For non-viscous solutions use: Peripheral IV = 5 mL Midline or Central Line = 10 mL/lumen For viscous solutions (i.e. blood components, parenteral nutrition,contrast media, or after obtaining blood sample) use: Peripheral IV = 10 mL Midline or Central Line= 20 mL/lumen, PACU onlytiZANidine 2 mg oral tablet (1 source)Central alpha-2 Adrenergic AgonistStart: 50-75-2239uebw 1 tablet by mouth every six hours as neededtiZANidine (ZANAFLEX) 2 MG tablet Take 1 tablet by mouth every 6 hours as needed (as needed) 30 tablet 10/08/2024 Rkbwcz82 hr venlafaxine 75 mg extended release oral capsule (20 sources)Serotonin and Norepinephrine Reuptake InhibitorStart: 27-88-2341dcif 1 capsule by mouth once daily at mealtimeVenlafaxine 75 mg capsule,extended release 24hr Active 0 .ROUTE .COMPLEX June 28, 2024 8:11amTAKE 1 CAPSULE BY MOUTH EVERY DAY WITH FOODStart: 03-22-2024 End: 47-09-1939hxxk 1 capsule by mouth once daily at mealtimeVenlafaxine 75 mg capsule,extended release 24hr Discontinued 0 .ROUTE .COMPLEX March 22, 2024 8:25am June 28, 2024 8:11am TAKE 1 CAPSULE BY MOUTH EVERY DAY WITH FOOD Start: 54-63-4175vfgz 1 capsule by mouth once dailyVenlafaxine 150 mg capsule,extended release 24hr Active 150 MG PO Daily March 12, 2024 10:15amStart: 10-07-2023 End: 33-93-6893qfxn 1 capsule by mouth once daily at mealtimeVenlafaxine 75 mg capsule,extended release 24hr Discontinued 0 .ROUTE .COMPLEX 90 October 07, 2023 8:02am March 22, 2024 8:26am TAKE 1 CAPSULE BY MOUTH EVERY DAY WITH FOOD Start: 09-19-2023 End: 58-86-0159mmzz 1 capsule by mouth once daily at mealtimeVenlafaxine 150 mg capsule,extended release 24hr Discontinued 0 .ROUTE .COMPLEX September 19, 2023 9:41am March 12, 2024 10:15am TAKE 1 CAPSULE BY MOUTH EVERY DAY WITH FOOD Start: 06-20-2023 End: 32-39-1082ynje 1 capsule by mouth once daily at mealtimeVenlafaxine 150 mg capsule,extended release 24hr Discontinued 150 MG PO June 20, 2023 1:00am September 19, 2023 9:42am FreeTextSig: TAKE 1 CAPSULE BY MOUTH EVERY DAY WITH FOOD; Note: Source Status: Continue; Provider: Cruzito Malloy ( )Start: 06-20-2023 End: 28-06-8386jhbn 1 capsule by mouth once daily at mealtimeVenlafaxine 75 mg capsule,extended release 24hr Discontinued 75 MG PO Daily June 20, 2023 1:00am October 07, 2023 8:02am FreeTextSi capsule with food Orally Once a day; Note: Source Status: Start; Refills: 1; Qty: 90 Capsule; Provider: Cruzito Putnam Start: 51-87-6735vhif 1 capsule by mouth every twenty-four hoursVenlafaxine HCl ER 75 MG 1 capsule with food Orally Once a day for 90 days Mar, Active Start: 67-54-6637qjtr 1 capsule by mouth every twenty-four hours in the morning venlafaxine XR (Effexor XR) 150 MG 24 hr capsule Take 150 mg by mouth in the morning. 10/01/2022 Activetake 1 tablet by mouth once dailyvenlafaxine (EFFEXOR) 100 MG tablet Take 1 tablet by mouth daily Takes 150 mg Activetake 1 capsule by mouth once daily at mealtimeVenlafaxine HCl ER 150 MG TAKE 1 CAPSULE BY MOUTH EVERY DAY WITH FOOD Active Completed/Discontinued Medications MedicationDrug Class(es)DatesSig (Normalized)Sig (Original)acetaminophen 325 mg / HYDROcodone bitartrate 5 mg oral tablet (5 sources)Opioid AgonistStart: 06-19-2024 End: 14-63-8780rogp 1 tablet by mouth every four to six hours as needed for pain Hydrocodone-Acetaminophen 5-325 mg tablet Discontinued 1 TAB PO EVERY 4-6 HOURS as needed for pain 7 June 19, 2024 July 20, 2024 8:[id number] 200 actuat albuterol 0.09 mg/actuat metered dose inhaler (20 sources)beta2-Adrenergic AgonistStart: 06-20-2023 End: 37-14-3888xvqh 2 puff(s) by inhalation every four to six hours as needed Albuterol Sulfate 90 mcg/actuation HFA aerosol inhaler Discontinued 2 PUFF INHALATION EVERY 4-6 HOURS June 20, 2023 1:00am January 06, 2024 10:39am FreeTextSi puffs as needed Inhalation every 4-6 hours; Note: Source Status: TakingPRN; Refills: 1; Qty: 1 inhaler; Provider: Flor AmberStart: 12-19-2020 take 2 puff(s) by inhalation every four to six hours as neededAlbuterol Sulfate HFA 108 (90 Base) MCG/ACT 2 puffs as needed Inhalation every 4-6 hours for 14 days PRN Dec, ActiveStart: 60-34-1244rlyf 2 puff(s) by inhalation every four to six hours as neededAlbuterol Sulfate HFA 108 (90 Base) MCG/ACT 2 puffs as needed Inhalation every 4-6 hours for 14 days PRN Dec, ActiveStart: 65-15-7195gmrp 2 puff(s) by inhalation every four to six hours as needed Albuterol Sulfate HFA 108 (90 Base) MCG/ACT 2 puffs as needed Inhalation every 4-6 hours for 14 days PRN Dec, ActiveALPRAZolam 0.25 mg oral tablet (20 sources)BenzodiazepineStart: 02-20-2020 End: 89-83-1006odrj 1 tablet by mouth once daily as neededAlprazolam 0.25 mg tablet Discontinued 0.25 MG PO as needed January 06, 2024 10:39am January 06, 2024 12:49pm FreeTextSig: TAKE 1 TABLET BY MOUTH ONCE A DAY NEEDED; Note: Source Status: Taking; Refills: 0; Qty: 20 Tablet; Provider: Cruzito Malloy ( )Start: 10-18-2017 End: 79-14-4407qrwl 1 tablet by mouth once daily at bedtimeAlprazolam (Xanax) 0.5 mg tablet Discontinued 0.5 MG PO Daily at bedtime October 18, 2017 12:00am July 29, 2018 8:02pmamoxicillin 875 mg / clavulanate 125 mg oral tablet (20 sources)Penicillin-class AntibacterialStart: 06-19-2024 End: 56-98-8943gfzm 1 tablet by mouth twice dailyAmoxicillin-Pot Clavulanate 875-125 mg tablet Discontinued 1 TAB PO Twice daily June 19, 2024 1:00am July 20, 2024 8:48amStart: 07-25-2023 End: 66-21-8863vutd 1 tablet by mouth twice dailyAmoxicillin-Pot Clavulanate 875-125 mg tablet Discontinued 1 TAB PO Twice daily July 25, 2023 12:00am December 26, 2023 9:56amStart: 01-05-2021 End: 96-80-7646zpcc 1 tablet by mouth twice dailyAmoxicillin-Pot Clavulanate (Augmentin) 875-125 mg tablet Discontinued 1 TAB PO Twice daily 04 02January 05, 2021 12:00am June 20, 2023 10:34amaprepitant 40 mg oral capsule (1 source)Substance P/Neurokinin-1 Receptor AntagonistStart: 10-08-2024 End: 75-99-9203xnhg 1 dose by mouth once daily40 mg, Oral, ONCE, 1 dose, On Tue10/08/24 at 1100, Pre-op (day of surgery)aspirin 81 mg delayed release oral tablet (20 sources)Platelet Aggregation Inhibitor, Nonsteroidal Anti-inflammatory Drug Start: 03-12-2024 End: 10-01-6963yhrk 1 tablet by mouth once dailyAspirin 81 mg tablet,delayed release (DR/EC) Discontinued 81 MG PO Daily March 12, 2024 1:00amApril 2024 8:50am FreeTextSi tablet Orally Once a day; Note: Source Status: Not-TakingundefinedPRN; Provider: Cruzito Malloy ( )take 1 tablet by mouth every twenty-four hoursAspirin 81 MG 1 tablet Orally Once a day Not-Taking/PRNtake 1 tablet by mouth once dailyAspirin 81 MG 1 tablet Orally Once a day Activecholecalciferol 0.025 mg oral capsule (7 sources)Vitamin DStart: 03-12-2024 End: 20-37-1563zotg 1 capsule by mouth once dailyCholecalciferol (Vitamin D3) 25 mcg (1,000 unit) capsule Discontinued 25 MCG PO Daily March 12, 2024 1:00am July 20, 2024 8:49am End: 04-47-8350Rqsqxxzqxcwzngv (VITAMIN D) 50 MCG (2000 UT) CAPS capsule Take by mouth 09/11/2024 Discontinuedcyclobenzaprine hydrochloride 10 mg oral tablet (16 sources)Muscle RelaxantStart: 01-28-2017 End: 99-57-0787gnvn 1 tablet by mouth three times dailyCyclobenzaprine 10 mg tablet Discontinued 10 MG PO Three times daily January 28, 2017 12:00am [facility] 2023 10:46amescitalopram 10 mg oral tablet (1 source)Serotonin Reuptake InhibitorStart: 06-18-2020 End: 65-55-4698sbxa 1 tablet by mouth once dailyescitalopram (LEXAPRO) 10 MG tablet take 1 tablet by mouth once daily 06/18/2020 09/11/2024 Discontinued2 ml fentaNYL 0.05 mg/ml injection (1 source)Opioid AgonistStart: mcg, IntraVENous, EVERY 5 MIN PRN, 4 doses, Starting on Tue10/08/24 at 1653, Until Discontinued,Pain Moderate (4-6), allowed for higher pain score per patient request, Phase I - Initial therapy fo r moderate pain., PACU onlyferrous sulfate 325 mg oral tablet (16 sources)Start: 10-18-2017 End: 65-25-2719nlbg 1 tablet by mouth twice dailyFerrous Sulfate 325 mg (65 mg iron) tablet Discontinued 1 TAB PO Twice daily October 18, 2017 12:00amNovember 2023 9:55amfolic acid 1 mg oral tablet (16 sources)Start: 10-18-2017 End: 46-71-7386huil 1 tablet by mouth three times dailyFolic Acid 1 mg tablet Discontinued 1 MG PO Three times daily October 18, 2017 12:00am January 06, 2024 10:40am0.5 ml HYDROmorphone hydrochloride 1 mg/ml prefilled syringe (1 source)Opioid AgonistStart: 50.5 mg, IntraVENous, EVERY 5 MIN PRN, 4 doses, Starting on Tue10/08/24 at 1653, Until Discontinued,Pain Severe (7-10), Phase I - Initial therapy for severe pain., PACU onlyibuprofen 800 mg oral tablet (16 sources)Nonsteroidal Anti-inflammatory DrugStart: 07-29-2018 End: 05-56-2507lhyn 1 tablet by mouth three times dailyIbuprofen 800 mg tablet Discontinued 800 MG PO Three times daily July 29, 2018 12:00am June 20, 2023 10:46ammagnesium hydroxide 80 mg/ml oral suspension (16 sources)Start: 10-18-2017 End: 93-44-7364blme 1 dose by mouth once daily as needed for constipation Magnesium Hydroxide (Milk Of Magnesia) 400 mg/5 mL Suspension Discontinued 1 DOSE PO Daily as needed for Constipation October 18, 2017 12:00am June 20, 2023 10:46am2 ml metoclopramide 5 mg/ml prefilled syringe (1 source)Dopamine-2 Receptor AntagonistStart: 41-98-794510 mg, IntraVENous, ONCE PRN, 1 dose, Starting on Tue10/08/24 at 1653, Until Discontinued, Nausea, S econdary antiemetic therapy., PACU vqptEdujnfcu-Vvi-Qdxqoju Fumarate (Multi Vitamin) 9 mg iron/15 mL Liquid (16 sources)Start: 01-28-2017 End: 50-53-4928Cmqaejqg-Min-Ferrous Fumarate (Multi Vitamin) 9 mg iron/15 mL Liquid Discontinued PO Daily January 27, 2017 11:00pm January 28, 2017 11:30amStart: 01-28-2017 End: 70-45-3808Zpgbfgvm-Min-Ferrous Fumarate (Multi Vitamin) 9 mg iron/15 mL Liquid Discontinued PO Daily January 28, 2017 12:00am January 28, 2017 12:30pmnaproxen 500 mg oral tablet (16 sources)Nonsteroidal Anti-inflammatory DrugStart: 01-28-2017 End: 19-77-6495ubfg 1 tablet by mouth twice daily at mealtimeNaproxen (Naprosyn) 500 mg tablet Discontinued 500 MG PO Twice daily January 28, 2017 12:00am June 20, 2023 10:46am administer with food or milk2 ml ondansetron 2 mg/ml injection (1 source)Serotonin-3 Receptor AntagonistStart: mg, IntraVENous, ONCE PRN, 1 dose, Starting on Tue10/08/24 at 1653, Until Discontinued, Nausea, Initial antiemetic therapy., PACU onlyoxyCODONE hydrochloride 5 mg oral tablet (4 sources)Opioid AgonistStart: 08-87-5706hcfe 1 dose by mouth once for pain5 mg, Oral, ONCE PRN, 1 dose, Starting on Tue10/08/24 at 1653, Until Discontinued, Pain Moderate (4-6), allowed for higher pain score per patient request, Pain Severe (7-10), PHASE II, PACU onlyStart: 38-01-3938zouSMNVSU HCl 5 MG 1 tablet as needed Orally every 6-8 hrs for 7 days Jan, ActiveStart: 01-20-2022 take 1 tablet by mouth every six hoursoxyCODONE HCl 5 MG 1 tablet as needed Orally every 6 hrs for 7 days Jan, Activepromethazine hydrochloride 12.5 mg oral tablet (1 source)PhenothiazineStart: 10-08-2024 End: 94-92-1672ssrt 1 dose by mouth once daily12.5 mg, Oral, ONCE, 1 dose, On Tue10/08/24 at 1100, Pre-op (day of surgery)Scopolamine Base (2 sources)Start: 06-20-2023 End: 64-28-5017Snryiwszfnl Base Discontinued 1 PATCH TRANSDERML Every 72 hours June 20, 2023 10:52am 2023 10:40am FreeTextSi patch to skin behind the ear as needed Transdermal every 3 days; Note: Source Status: Not-Taking\PRN; Refills: 0; Provider: Cruzito Malloy EStart: 23-95-2541Rmwwtruhyek Base Active 1 PATCH TRANSDERML Every 72 hours June 20, 2023 10:52am FreeTextSi patch to skin behind the ear as needed Transdermal every 3 days; Note: Source Status: Not-Taking\PRN; Refills: 0; Provider: Cruzito Putnam Scopolamine Base 1 mg over 3 days patch 3 day (6 sources)Start: 06-20-2023 End: 88-62-7036Ieqgwrsltau Base 1 mg over 3 days patch 3 day Discontinued 1 PATCH TRANSDERML Every 72 hours June 20, 2023 10:52am January 06, 2024 10:40am FreeTextSi patch to skin behind the ear as needed Transdermal every 3 days; Note: Source Status: Not-TakingundefinedPRN; Refills: 0; Provider: Cruzito Malloy EStart: 06-20-2023 End: 25-78-1482Uberemcppxe Base 1 mg over 3 days patch 3 day Discontinued 1 PATCH TRANSDERML Every 72 hours 4 June 20, 2023 9:52am January 06, 2024 9:40am FreeTextSi patch to skin behind the ear as neededTransdermal every 3 days; Note: Source Status: Not-TakingundefinedPRN; Refills: 0; Provider: Cruzito diamond ESemaglutide (20 sources)Start: 03-12-2024 End: 89-02-7437Gtznnrbagwd (Ozempic) 0.25 mg or 0.5 mg (2 mg/3 mL) pen injector Discontinued MG SUBCUT March 12, 2024 1:00am March 12, 2024 9:55am Start: 03-12-2024 End: 59-30-8710Mcjuiolatjq (Ozempic) 0.25 mg or 0.5 mg (2 mg/3 mL) pen injector Discontinued MG SUBCUT March 12, 2024 12:00am March 12, 2024 8:55am Start: 08-29-2023 End: 02-25-4353lblyrc 0.5 mg by subcutaneous injection every weekSemaglutide (Ozempic) 0.25 mg or 0.5 mg (2 mg/3 mL) pen injector Discontinued 0 .ROUTE .COMPLEX 3 August 29, 2023 2:41pm September 02, 2023 7:09am INJECT 0.5 MG SUBCUTANEOUS ONCE WEEKLYStart: 08-29-2023 End: 82-32-9437parxuz 0.5 mg by subcutaneous injection every weekSemaglutide (Ozempic) 0.25 mg or 0.5 mg (2 mg/3 mL) pen injector Discontinued 0 .ROUTE .COMPLEX 3 August 29, 2023 3:41pm September 02, 2023 8:09am INJECT 0.5 MG SUBCUTANEOUS ONCE WEEKLYStart: 08-29-2023 End: 07-69-2004bckcho 0.5 mg by subcutaneous injection every weekSemaglutide (Ozempic) 0.25 mg or 0.5 mg (2 mg/3 mL) pen injector Discontinued 0 .ROUTE .COMPLEX 3 August 29, 2023 5:55am August 29, 2023 2:41pm INJECT 0.5 MG SUBCUTANEOUS ONCE WEEKLYStart: 08-29-2023 End: 76-78-0288vgwawg 0.5 mg by subcutaneous injection every weekSemaglutide (Ozempic) 0.25 mg or 0.5 mg (2 mg/3 mL) pen injector Discontinued 0 .ROUTE .COMPLEX 3 August 29, 2023 6:55am August 29, 2023 3:41pm INJECT 0.5 MG SUBCUTANEOUS ONCE WEEKLYStart: 06-20-2023 End: 64-83-6102clyios 0.5 mg by subcutaneous injection every weekSemaglutide (Ozempic) 0.25 mg or 0.5 mg (2 mg/3 mL) pen injector Discontinued 0.5 MG SUBCUT every week June 20, 2023 9:47am August 29, 2023 5:56am FreeTextSi.5 mg Subcutaneous once q week; Note:Source Status: Refill; Refills: 2; Provider: Cruzito Malloy EStart: 06-20-2023 End: 45-08-6913zwlpho 0.5 mg by subcutaneous injection every weekSemaglutide (Ozempic) 0.25 mg or 0.5 mg (2 mg/3 mL) pen injector Discontinued 0.5 MG SUBCUT every week June 20, 2023 10:47am August 29, 2023 6:56am FreeTextSi.5 mg Subcutaneous once q week; Note: Source Status: Refill; Refills: 2; Provider: Cruzito Malloy EStart: 42-66-4687bcwuan 0.5 mg by subcutaneous injection every week Semaglutide (Ozempic) 0.25 mg or 0.5 mg (2 mg/3 mL) pen injector Active 0.5 MG SUBCUT every week June 20, 2023 10:47am FreeTextSi.5 mg Subcutaneous once q week; Note: Source Status: Refill; Refills: 2; Provider: Cruzito Malloy EStart: 06-20-2023 End: 02-65-4653dobdps 0.5 mg by subcutaneous injection every weekSemaglutide (Ozempic) 0.25 mg or 0.5 mg (2 mg/3 mL) pen injector Discontinued MG SUBCUT June 20, 2023 12:00am June 20, 2023 9:47am FreeTextSi.5 mg Subcutaneous once q week; Note: Source Status: Refill; Refills: 2; Provider: Cruzito Putnam Start: 06-20-2023 End: 63-71-4192ttevvo 0.5 mg by subcutaneous injection every weekSemaglutide (Ozempic) 0.25 mg or 0.5 mg (2 mg/3 mL) pen injector Discontinued MG SUBCUT June 20, 2023 1:00am June 20, 2023 10:47am FreeTextSi.5 mg Subcutaneous once q week; Note: Source Status: Refill; Refills: 2; Provider: Cruzito Putnam Semaglutide (14 sources)Start: 12-05-2023 End: 78-29-5699Hpojfjqfcnv 1 mg/dose (4 mg/3 mL) pen injector Discontinued 1 MG .ROUTE every week 3 December 05, 2023 5:53pm January 06, 2024 12:39pm 1 mg every week;Start: 12-05-2023 End: 46-23-2934Mnpbnjzirwc 1 mg/dose (4 mg/3 mL) pen injector Discontinued 1 MG .ROUTE every week 3 December 05, 2023 4:53pm January 06, 2024 11:39am 1 mg every week;Start: 36-31-1958Nonuwwvvfni Active 1 MG .ROUTE every week 3 December 05, 2023 5:53pm 1 mg every week;Start: 09-02-2023 End: 14-15-8575Ulhttdwowfv 1 mg/dose (4 mg/3 mL) pen injector Discontinued 1 MG .ROUTE every week 3 September 0148:08am December 05, 2023 5:53pm 1 mg every week;Start: 09-02-2023 End: 57-81-5752Hwihlbuvqub 1 mg/dose (4 mg/3 mL) pen injector Discontinued 1 MG .ROUTE every week 3 September 0147:08am December 05, 2023 4:53pm 1 mg every week;Start: 09-02-2023 End: 13-57-3281Pnjpnrknmtb Discontinued 1 MG .ROUTE every week 3 September 02, 2023 8:08am December 05, 2023 5:53pm 1 mg every week;traZODone hydrochloride 50 mg oral tablet (1 source)Serotonin Reuptake InhibitorStart: 06-09-2020 End: 73-57-9382ftef 1 tablet by mouth once daily at bedtimetraZODone (DESYREL) 50 MG tablet take 1 tablet by mouth at bedtime if needed once daily 06/09/2020 0 09/11/2024 Discontinuedvitamin b12 1 mg oral tablet (1 source)Vitamin B12 End: 26-58-7083ykttgdyhhwmggs ([facility] VITAMIN B12) 1000 MCG tablet Take by mouth 09/11/2024 Discontinued Problems Active Problems Problem ClassificationProblemDateDocumented DateEpisodic/ChronicAdjustment disorders (20 sources)Grief finding; Translations: [Adjustment disorder, unspecified] ChronicAnxiety disorders (20 sources)Anxiety; Translations: [Anxiety disorder, unspecified]Onset: 06-22-2021 Resolved: 20-78-5493KxmopnaBiusui of other female genital organs (4 sources)Low grade squamous intraepithelial lesion on vaginal Papanicolaou smear; Translations: [Low grade squamous intraepithelial lesion on cytologic smear of vagina (LGSIL)]97-09-8398ZrfezbnpA Codes: Natural/environment (20 sources)Dog bite - wound; Translations: [Bitten by dog, initial encounter] 78-94-2154ZrppmeuqTkjjti infertility (20 sources)Anovulation; Translations: [Female infertility associated with anovulation]ChronicFracture of lower limb (20 sources)Fracture of fibula; Translations: [Unspecified fracture of shaft of unspecified fibula, initial encounter for closed fracture]16-48-0042Umtgupuv Immunity disorders (1 source)Immunodeficiency disorder; Translations: [Unspecified immunity deficiency]ChronicImmunizations and screening for infectious disease (6 sources)Patient encounter status; Translations: [Encounter for immunization] 48-23-6519CsqpfamxXvprs disorders and dislocations; trauma-related (20 sources)Internal derangement of left knee; Translations: [Unspecified internal derangement of left knee]ChronicMenstrual disorders (20 sources)Excessive and frequent menstruation; Translations: [Excessive and frequent menstruation with regular cycle]ChronicMiscellaneous mental health disorders (20 sources)Psychophysiologic insomnia; Translations: [Psychophysiologic insomnia]ChronicMood disorders (20 sources)Moderate major depression, single episode; Translations: [Major depressive disorder, single episode, moderate]Onset: hronic Nutritional deficiencies (20 sources)Vitamin D deficiency; Translations: [Vitamin D deficiency, unspecified]ChronicOpen wounds of extremities (1 source)Laceration without foreign body of left forearm, initial encounter; Translations: [Laceration without foreign body of left forearm, initial encounter]Onset: 68-43-4145XcdqnvzuCwsoy bone disease and musculoskeletal deformities (1 source)Osteonecrosis due to previous trauma, left foot; Translations: [Osteonecrosis due to previous trauma, left foot]Onset: 59-93-9269TkdkjzpBgrew connective tissue disease (3 sources)Anterior tibial syndrome, right legEpisodicOther connective tissue disease (6 sources)Foot pain; Translations: [Pain in left foot]42-24-1178WyveaiqoMwlot female genital disorders (20 sources)Cervical intraepithelial neoplasia grade 1; Translations: [Mild cervical dysplasia]EpisodicOther injuries and conditions due to external causes (1 source)Unspecified injury of right ankle, initial encounterEpisodicOther nervous system disorders (1 source)Postoperative pain ; Translations: [Other acute postprocedural pain] 97-25-3900BhlsxsgdChpim nervous system disorders (1 source)Other acute postprocedural pain; Translations: [Other acute postprocedural pain]Onset: 63-73-6683PjzkjetlRkdlq nutritional; endocrine; and metabolic disorders (4 sources)OverweightEpisodicOther nutritional; endocrine; and metabolic disorders (1 source)Body mass index (BMI) 28.0-28.9, adultEpisodicOther nutritional; endocrine; and metabolic disorders (1 source)Body mass index (BMI) 25.0-25.9, adult; Translations: [Body Mass Index 25.0-25.9, adult]54-51-4088ArhowejaCufwe screening for suspected conditions (not mental disorders or infectious disease) (12 sources)Encounter for screening for cardiovascular disorders; Translations: [Patient encounter status]Onset: 95-08-2871UjxbfitnDmceq upper respiratory disease (1 source)Deviated nasal septum; Translations: [Deviated nasal septum]Episodic Other upper respiratory disease (1 source)Hypertrophy of nasal turbinates; Translations: [Hypertrophy of nasal turbinates]EpisodicOther upper respiratory infections (20 sources)Chronic sinusitis; Translations: [Unspecified sinusitis (chronic)] ChronicOther upper respiratory infections (7 sources)Acute maxillary sinusitis; Translations: [Acute maxillary sinusitis, unspecified]52-84-7885EpwtlwipWdfmmhk detachments; defects; vascular occlusion; and retinopathy (2 sources)Neovascularization of choroid of right eye; Translations: [Retinal neovascularization, unspecified,right eye]Onset: hronic Sexually transmitted infections (not HIV or hepatitis) (20 sources)Human papillomavirus deoxyribonucleic acid test positive, high risk on cervical specimen; Translations: [Cervical high risk human papillomavirus (HPV) DNA test positive]Episodic Past or Other Problems Problem ClassificationProblemDateDocumented DateEpisodic/ChronicNutritional deficiencies (2 sources)Vitamin deficiency; Translations: [Vitamin deficiency, unspecified] Onset: 241991-30-6339RctvnmphZagvu and unspecified benign neoplasm (2 sources)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; Translations: [Benign neoplasm of right choroid]Onset: 104491-16-2538TdfkftsvZufpa bone disease and musculoskeletal deformities (1 source)Chondrocostal junction syndrome [Tietze]; Translations: [Costochondritis M94.0]Onset: 02-04-2021 Resolved: 32-74-5051AtadhqxbObqco connective tissue disease (5 sources)Pain in left foot; Translations: [Pain in limb]Onset: 03-30-2024 97-45-2402AmqwxxqaOicyj eye disorders (2 sources)Pain in eye; Translations: [Ocular pain, right eye]Onset: 10-10-2018 87-15-4343WvhisqbsDpixl nutritional; endocrine; and metabolic disorders (3 sources)Overweight in adulthood with body mass index of 25 or more but less than 30; Translations: [Body mass index (BMI) 25.0-25.9, adult]Onset: 09-27-2019 07-20-9136ArzvialeJtelm skin disorders (2 sources)Disorder of the skin and subcutaneous tissue, unspecifiedOnset: 09-10-2021 Resolved: 50-69-5981MbtscoyfSuvzlwi and strains (18 sources)Low back strain; Translations: [Strain of muscle, fascia and tendon of lower back, initial encounter]Onset: 071950-19-4753PkajozdsKFOCFCO: Highlighted row has not occurred!Residual codes; unclassified (5 sources)DiseaseEpisodic Results Test NameValueInterpretationReference RangeFacilityCT FOOT LEFT WO IV CONTRASTon 23-60-0546TQ FOOT LEFT WO IV CONTRASTEXAMINATION: CT FOOT LEFT WO IV CONTRAST HISTORY: [...] width as seen on sagittal bone series 20696 image 19. Fracture line persists. A metallic [...] phalanx with fracture nonunion. ELECTRONICALLY SIGNED BY: Lonnie SamuelsmalNot AvailableBasic Metabolic Panelon 63-85-3145Lliyq gap [Moles/Vol]11 mmol/L9 - 16 mmol/LBon [facility] GlenbeighCalcium [Mass/Vol]8.9 mg/dL8.6 - 10.4 mg/dLBon [facility] Chloride [Moles/Vol]106 mmol/L98 - 107 mmol/LBon [facility] GlenbeighCO2 [Moles/Vol]25 mmol/L20 - 31 mmol/LBon [facility] GlenbeighCreatinine [Mass/Vol] 0.9 mg/dL0.50 - 0.90 mg/dLBon [facility] GlenbeighEst, Glom Filt Rate74- PINFBon Acm[facility] GlenbeighComment on above: These results are not intended for use in patients <18 years of age. eGFR results are calculated without a race factor using the 2020 CKD-EPI equation. Careful clinical correlation is recommended, particularly when comparing to results calculated using previous equations. The CKD-EPI equation is less accurate in patients with extremes of muscle mass, extra-renal metabolism of creatine, excessive creatine ingestion, or following therapy that affects renal tubular secretion. Glucose [Mass/Vol]101 mg/zLOkbs61 - 99 mg/dLBon [facility] Interpretation and review of laboratory resultsAbnormalInova Women'S Hospital Potassium [Moles/Vol]4.3 mmol/L3.7 - 5.3 mmol/LBon [facility] GlenbeighSodium [Moles/Vol]141 mmol/L136 - 145 mmol/LBon [facility] GlenbeighUrea nitrogen [Mass/Vol]12 mg/dL6 - 20 mg/dLBon [facility] Basic Metabolic Profon 82-55-2563Xxcql gap [Moles/Vol]11 mmol/LNormal9-16[facility] Medical CenterComment on above:Performed By: #### CBC, BMP #### [facility] [address] [place] [address] Manager Heavy Equipment: MARY KAY Mcallisteralcium [Mass/Vol]8.9 mg/dLNormal8.6-10.4Sy[facility] Medical CenterComment on above:Performed By: #### CBC, BMP #### [facility] [address] [place] [address] Manager Heavy Equipment: MARY KAY Mcallisterhloride [Moles/Vol]106 mmol/XNmqwlo68-326OiathSycamore Medical CenterComment on above:Performed By: #### CBC, BMP #### [facility] [address] [place] [address]. [place] [address] Manager Heavy Equipment: William Hilliard MDCO2 [Moles/Vol]25 mmol/IRtzzzx76-05OfyctSycamore Medical CenterComment on above:Performed By: #### CBC, BMP #### [facility] [address] [place] [address] Manager Heavy Equipment: MARY KAY Mcallisterreatinine [Mass/Vol]0.9 mg/dLNormal0.50-0.90 [facility] CenterComhavenwyck hospital on above:Performed By: #### CBC, BMP #### [facility] [address] [place] [address]. [place] [address] Manager Heavy Equipment: William Hilliard MDGFR/1.73 sq M.predicted among non-blacks MDRD (S/P/Bld) [Vol rate/Area]74 mL/min/{1.73_m2}Normal>60[facility] Comment on above:Result Comment: These results are not intended for use in patients <18 years of age. eGFR results are calculated without a race factor using the 2020 CKD-EPI equation. Careful clinical correlation is recommended, particularly when comparing to results calculated using previous equations. The CKD-EPI equation is less accurate in patients with extremes of muscle mass, extra-renal metabolism of creatine, excessive creatine ingestion, or following therapy that affects renal tubular secretion.Performed By: #### CBC, BMP #### [facility] [address] [place] [address] Manager Heavy Equipment: William Hilliard MDGlucose [Mass/Vol]101 mg/tBYmyw95-75HcvdnSwedish Medical Center EdmondsComment on above:Performed By: #### CBC, BMP #### [facility] [address] [place] [address] Manager Heavy Equipment: JEANIE Mcallisterotassium [Moles/Vol]4.3 mmol/LNormal3.7-5.3 [facility] CenterComhavenwyck hospital on above:Performed By: #### CBC, BMP #### [facility] [address] [place] [address] Manager Heavy Equipment: ASHLEY Mcallisterodium [Moles/Vol]141 mmol/BZlzbpt036-838TyhjoSycamore Medical CenterComment on above:Performed By: #### ANA, BMP #### [facility] [address] [place] [address] Manager Heavy Equipment: William Hilliard MDUrea nitrogen [Mass/Vol]12 mg/dLNormal6-20[facility] Medical CenterComment on above:Performed By: #### CBC, BMP #### [facility] [address] [place] [address] Manager Heavy Equipment: MARY KAY Mcallisternessa 46-74-0808Poytndlerrl distribution width (RBC) [Ratio]12.3 %11.8 - 14.4 %Bon [facility] GlenbeighHematocrit (Bld) [Volume fraction]39.1 %36.3 - 47.1 %In[facility] Women'S HospitalHemoglobin (Bld) [Mass/Vol] 13.5 g/dL11.9 - 15.1 g/dLBon Secours Mercy HealthMCH (RBC) [Entitic mass]31.5 pg 25.2 - 33.5 pgValley HealthHC (RBC) [Mass/Vol]34.5 g/dL28.4 - 34.8 g/dLBon [facility] Memorial HospitalV (RBC) [Entitic vol]91.1 fL82.6 - 102.9 fLInova Women'S HospitalNucleated RBC/100 WBC (Bld) [Ratio]0 %0.0 per 100 WBCInova Women'S HospitalPlatelet mean volume (Bld) [Entitic vol]9.1 fL8.1 - 13.5 fL Bon [facility] GlenbeighPlatelets (Bld) [#/Vol]229 10*3/uLBon [facility] GlenbeighRBC (Bld) [#/Vol]4.29 10*6/uL3.95 - 5.11 m/uLInova Women'S HospitalWBC other (Bld) [#/Vol]4.5Bon [facility] Erythrocyte distribution width (RBC) [Ratio]12.3 %Hwemwy41.8-14.4Mer[facility] Army Medical CenterComment on above:Performed By: #### CBC, BMP #### [facility] [address] [place] [address] Manager Heavy Equipment: William Hilliard MDHematocrit (Bld) [Volume fraction]39.1 %Normal 36.3-47.1[facility] Medical CenterComment on above:Performed By: #### CBC, BMP #### [facility] [address] [place] [address] Manager Heavy Equipment: William Hilliard MDHemoglobin (Bld) [Mass/Vol]13.5 g/dLNormal 11.9-15.1[facility] Medical CenterComment on above:Performed By: #### CBC, BMP #### [facility] [address] [place] [id number] Manager Heavy Equipment: PAULINA McallisterCH (RBC) [Entitic mass]31.5 tyOiexhj63.2-33.5 [facility] CenterComment on above:Performed By: #### CBC, BMP #### [facility] [place] [address] Manager Heavy Equipment: PAULINA McallisterCHC (RBC) [Mass/Vol]34.5 g/oFIermgx71.4-34.8 [facility] CenterComhavenwyck hospital on above:Performed By: #### CBC, BMP #### [facility] [address] [place] [address] Manager Heavy Equipment: PAULINA McallisterCV (RBC) [Entitic vol]91.1 oJKdhfba32.6-102.9 [facility] CenterComhavenwyck hospital on above:Performed By: #### CBC, BMP #### [facility] [address] [place] [address] Manager Heavy Equipment: NITO Mcallister Automated0.0 per 100 WBCNormal0.0Sy[facility] Medical CenterComhavenwyck hospital on above:Performed By: #### CBC, BMP #### [facility] [address] [place] [address] Manager Heavy Equipment: Oneal Mcallister mean volume (Bld) [Entitic vol]9.1 fL Normal8.1-13.5Sy[facility] Medical CenterComhavenwyck hospital on above:Performed By: #### CBC, BMP #### [facility] [address] [place] [address] Manager Heavy Equipment: German Mcallister (Bld) [#/Vol]229 10*3/kLEsawes024-069 [facility] CenterComhavenwyck hospital on above:Performed By: #### CBC, BMP #### [facility] [address] [place] [address] Manager Heavy Equipment: JOCELYNE Mcallister (Bld) [#/Vol]4.29 10*6/uLNormal3.95-5.11 [facility] CenterComment on above:Performed By: #### CBC, BMP #### [facility] [address] [place] [address] Manager Heavy Equipment: JACKLYN Mcallister (Bld) [#/Vol]4.5 10*3/uLNormal3.5-11.3MSwedish Medical Center EdmondsComment on above:Performed By: #### CBC, BMP #### [facility] [address] [place] [address] Manager Heavy Equipment: William Hilliard MDFLUORO FOR SURGICAL PROCEDURESon 10-08-2024 FLUORO FOR SURGICAL PROCEDURESRadiology exam is complete. No Radiologist dictation. Please follow up with ordering provider. Final resultNormCleveland Clinic Marymount HospitalGuidance-- during surgeryon 10-08-2024 Radiology exam is complete. No Radiologist dictation. Please follow up with ordering provider. [facility] RIS CONSOLIDATEDXR FOOT LEFT (MIN 3 VIEWS)on 47-05-6076CV FOOT LEFT (MIN 3 VIEWS)EXAM: 3 VIEW(S) XRAY OF THE LEFT FOOT 10/08/2024 05:26:00 PM COMPARISON: None available. CLINICAL HISTORY: Postoperative changes. Please take in PACU. FINDINGS: BONES AND JOINTS: Postoperative changes of internal fixation of the second phalanx. The pin extends into the second MTP joint. Prior surgical hardware of the second metatarsal. Cannulated screws seen involving the proximal phalanx of the first digit. No acute fracture. JOINTS: The pin extends into the second MTP joint. SOFT TISSUES: Small plantar calcaneal spur. IMPRESSION: 1. Postoperative changes of internal fixation of the second phalanx . Interpreted by: Amandeep Coles MD Signed by: Amandeep Coles MD 10/08/24 Final resultNoFostoria City HospitalX-ray reportOrdered By: Partha Mims on 53-55-6861Bupcg reportFIR[address] [address] XRay Report Signed Patient: Kristan Levy MR#: [id number] : 1970 Acct:[id number] Age/Sex: 53 / F ADM Date: 5 Loc: ER Room: Type: [facility] ER Attending Dr: Copies to: Rupesh Torres PA-C~ Ordering Provider: Rupesh Torres PA-C Date of Service: 06/19/24 XR/XR forearm LT 2V*: Animal Bite, r/o fx, fb LEFT FOREARM - 2 views CLINICAL HISTORY: Animal bite left forearm. COMPARISON: None FINDINGS: Soft tissue defect is seen involving the proximal forearm soft tissues with associated soft tissue gas consistent with the history. No opaque foreign body is seen. No acute bony process is seen. XR/XR forearm LT 2V* IMPRESSION: POSTTRAUMATIC CHANGES INVOLVING THE SOFT TISSUES CONSISTENT WITH THE HISTORY WITH ASSOCIATED SOFT TISSUE GAS. NO RADIOPAQUE FOREIGN BODY OR ACUTE BONY PROCESS Impression dictated by: Partha Mims Jr., DHalleyOHalley06/19/2024 1:36 PM Dictation Location: [place] [address] Transcribed By: [facility] 06/19/24 1336 Dictated By: Partha Mims Jr, DO 06/19/24 133 Signed By: 06/19/24 1336 [facility] CenterXR [facility] 2V*on 03-50-1768FC forearm LT 2V* [address] [address] XRay Report Signed Patient: Kristan Levy MR#: [id number] : 1970 Acct:[id number] Age/Sex: 53 / F ADM Date: 06/19/24 Loc: ER Room: Type: [facility] ER Attending Dr: Copies to: Rupesh Torres PA-C Ordering Provider: Rupesh Torres PA-C Date of Service: 06/19/24 XR/XR forearm LT 2V*: Animal Bite, r/o fx, fb LEFT FOREARM - 2 views CLINICAL HISTORY: Animal bite left forearm. COMPARISON: None FINDINGS: Soft tissue defect is seen involving the proximal forearm soft tissues with associated soft tissue gas consistent with the history. No opaque foreign body is seen. No acute bony process is seen. XR/XR forearm LT 2V* IMPRESSION: POSTTRAUMATIC CHANGES INVOLVING THE SOFT TISSUES CONSISTENT WITH THE HISTORY WITH ASSOCIATED SOFT TISSUE GAS. NO RADIOPAQUE FOREIGN BODY OR ACUTE BONY PROCESS Impression dictated by: Partha Mims Jr., D.OHalley06/19/2024 1:36 PM Dictation Location: [facility]--23 Transcribed By: [facility] 06/19/24 1336 Dictated By: Partha Mims Jr, DO 06/19/24 1335 Signed By: 06/19/24 1336[facility] MAMMOGRAM SCREENING TOMOSYNTHESIS BILATERALon [id number] MAMMOGRAM SCREENING TOMOSYNTHESIS BILATERALThis is a summary report. The complete report is available in the patient's medical record. If you cannot access the medical record, please contact the sending organization for a detailed fax or copy. Examination: BI MAMMOGRAM SCREENING TOMOSYNTHESIS BILATERAL Clinical History: screening Technique: Screening digital mammography study of both breasts was performed with 2-D and 3-D tomosynthesis imaging. Study was compared to the prior exam dated 02/15/2023. Findings: There is no evidence of interval dominant spiculated mass, grouped microcalcifications, or skin thickening which would be suggestive of malignancy. Partially visualized axillary lymph nodes suggested on the right which appear grossly unremarkable. IMPRESSION: Impression: No specific evidence of malignancy seen in either breast. BIRADS 2 - Benign Findings DENSITY: There are scattered areas of fibroglandular density. FOLLOW-UP: Routine Screening Mammogram ELECTRONICALLY SIGNED BY: Chris Salvador M.D.NormalNot AvailableComment on above: Order Comment: Us and spot compression prnCT foot LT wo conon 87-56-9723HB foot LT wo [facility] [place] [address] [place] [address] CT Scan Report Signed Patient: Kristan Levy MR#: [id number] : 1970 Acct:[id number] Age/Sex: 53 / F ADM Date: 05/07/24 Loc: [facility] Room: Type: REG CLI Attending Dr: Raoul Burt DPM, MS Copies to: Raoul Burt DPM, MS Ordering Provider: Raoul Burt DPM, MS Date of Service: 05/07/24 CT/CT foot LT wo con: M87.275 CT left foot without contrast TECHNIQUE: The CT exam was performed using one or more the following dose reduction techniques: Automated exposure control, adjustment of the MA and/or Kv according to patient size, or use of the iterative reconstruction technique. COMPARISON: Plain film imaging 03/30/2024 HISTORY: AVN involving the second metatarsal head Joint space narrowing of the second metatarsal phalangeal articulation. Subarticular cystic changes. flattening and widening of the subchondral bone. No acute displaced fracture. Unremarkable soft tissues. Adequate alignment. Extensive erosive degenerative changes of the 2nd- 5th proximal interphalangeal joints with subchondral cystic change. 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 No acute bony findings. Additional erosive degenerative changes of the second fifth proximal interphalangeal joints. Impression dictated by: Pal Alcazar M.D.05/07/2024 9:58 AM Dictation Location: [place] [address] Transcribed By: [facility] 05/07/24 0958 Dictated By: Pal Alcazar DO 05/07/24 0953 Signed By: 05/07/24 0958[facility] Physician GroupXR foot LT min 3V*on 03-30-2024 XR foot LT min 3V*[facility] [address] [place] [address] XRay Report Signed Patient: Kristan Levy MR#: [id number] : 1970 Acct:[id number] Age/Sex: 53 / F ADM Date: 03/30/24 Loc: [facility] Room: Type: REG CLI Attending Dr: Fermin Ramírez II, MD Copies to: Fermin Ramírez MD Ordering Provider: Fermin Ramíerz MD Date of Service: 03/30/24 XR/XR foot LT min 3V*: PAIN LEFT FOOT - 3 views CLINICAL HISTORY: Pain left foot plantar surface for 2 years. Left ankle swelling COMPARISON: None FINDINGS: No focal soft tissue abnormality. No acute bony process is seen. Lucent areas are seen along the heads of the proximal phalanx of the third fourth and fifth digits as well as the base of the second proximal phalanx and head of the second metacarpal. No significant joint spurring is seen. Plantar spurring. XR/XR foot LT min 3V* IMPRESSION: NO ACUTE BONY PROCESS. LUCENT AREAS ARE SEEN ALONG THE HEADS OF THE PROXIMAL PHALANX OF THE THIRD FOURTH AND FIFTH DIGITS WELL THE BASE OF THE SECOND PROXIMAL PHALANX AND HEAD OF THE SECOND METACARPAL POSSIBLY RELATING TO DEVELOPING DEGENERATIVE CHANGE. NO DEFINITE EROSIVE COMPONENT IS SEEN. Impression dictated by: Partha Mims Jr., D.OHalley03/30/2024 9:07 AM Dictation Location: [place] [address] Transcribed By: [facility] 03/30/24 09 Dictated By: Partha Mims Jr, DO 03/30/24 0905 Signed By: 03/30/24 0907[facility] Physician GroupAlanine aminotransferase [Enzymatic activity/volume] in Serum or PlasmaOrdered By: Gama East on 70-50-8531XWW [Catalytic activity/Vol]19 U/L7-52[facility] Health CenterAlbumin [Mass/volume] in Serum or Plasma by Bromocresol green (BCG) dye binding methoOrdered By: Gama East on 36-96-7366Zqsxewa BCG dye [Mass/Vol]4.4 g/dL3.5-5.7FUniversity Hospitals Samaritan Medical CenterAlkaline phosphatase [Enzymatic activity/volume] in Serum or PlasmaOrdered By: Gama Mast on 96-84-0670UWH [Catalytic activity/Vol]96 U/G33-871IabcaorgtFulton County Health CenterAspartate aminotransferase [Enzymatic activity/volume] in Serum or PlasmaOrdered By: Gama Mast on 34-93-0788GNH [Catalytic activity/Vol]21 U/U48-03SxuujuyruFulton County Health CenterBilirubin.total [Mass/volume] in Serum or PlasmaOrdered By: Gama East on 46-71-4428Dqshhhdvi [Mass/Vol]0.5 mg/dL0.3-1.0[facility] CenterCalcium [Mass/volume] in Serum or PlasmaOrdered By: Gama Mast on 43-14-9843Csmqusq [Mass/Vol]9.5 mg/dL8.6-10.3FUniversity Hospitals Samaritan Medical Center Carbon dioxide, total [Moles/volume] in Serum or PlasmaOrdered By: Gama Mast on 73-96-4823XJ0 [Moles/Vol]26.6 mmol/L21.0-31.0[facility] Chloride [Moles/volume] in Serum or PlasmaOrdered By: Gama Mast on 03-03-2023 Chloride [Moles/Vol]109 mmol/C84-139OthydsneaFulton County Health CenterCholesterol [Mass/volume] in Serum or PlasmaOrdered By: Gama Mast on 35-09-2939Segkaszmoox [Mass/Vol]244 mg/wH022-758TqcdliqncFulton County Health CenterComment on above:Chol less than 200 mg/dl low riskChol 201-239 mg/dl borderline riskChol 240 mg/dl and greater high riskCholesterol in LDL Calc [Mass/Vol]Ordered By: Gama Mast on 03-72-6187Vzvguwjqmvz in LDL [Mass/Vol]164 mg/dL0-100F[facility] County Health CenterComment on above:LDL ATP III CLASSIFICATIONLDL less than 100 mg/dL OptimalLDL 100-129 mg/dL Near or above eakumzjPQV012-979 mg/dL Borderline highLDL 160-189 mg/dL HighLDL greater than 189 mg/dL Very highCholesterol in VLDL Calc [Mass/Vol]Ordered By: Gama Mast on 81-85-1241Yithxkalttd in VLDL [Mass/Vol]21 mg/dLFulton County Health CenterCreatinine [Mass/volume] in Serum or PlasmaOrdered By: Gama Mast on 10-70-3234Ebxusjtnsp [Mass/Vol]1.08 mg/dL0.60-1.20F[facility] County Health CenterGlobulin Calc (S) [Mass/Vol] Ordered By: Gama Mast on 35-46-1896Fvzvkqrt (S) [Mass/Vol]2.6 g/dLFulton County Health CenterGlucose [Mass/volume] in Serum or PlasmaOrdered By: Gama Mast on 20-17-1351Ioevvqa [Mass/Vol]66 mg/bD42-670NehrqunrbFulton County Health CenterComment on above:ADA recommended reference rangeRandom Glucose Reference Range is dependent on time and content of last meal. Glucose of more than 200 mg/dL in a nonstressed, ambulatory subject supports the diagnosisof Diabetes Mellitus.No Panel InformationOrdered By: Gama East on 09-11-6357Sgkxibwsk GFR (CKD-EPI)> 60.0 mL/MinFulton County Health CenterPharmacy Creatinine Clearance (ChemN/[facility] John Medical CenterPotassium [Moles/volume] in Serum or PlasmaOrdered By: [facility] on 04-86-7019Qrpgogefp [Moles/Vol]4.8 mmol/L3.5-5.1FUniversity Hospitals Samaritan Medical CenterProtein [Mass/volume] in Serum or PlasmaOrdered By: [facility]amaMcKit[facility] on 35-18-1449Sutckxo [Mass/Vol]7.0 g/dL6.4-8.9 [facility] Hospitalerum or plasma albumin/globulin mass ratio Ordered By: [facility] on 94-62-2758Eiqjjbc/Globulin [Mass ratio]1.7 {ratio} [facility] Hospitalerum or plasma anion gap determinationOrdered By: [facility] on 84-72-4464Cpprf gap [Moles/Vol]10.2 mmol/L6.0-15.0Tuscarawas Hospitalerum or plasma high density lipoprotein (HDL) cholesterol measurementOrdered By: Gama Cruzito 93-37-5188Wtnhybvnrze in HDL [Mass/Vol]59 mg/wB42-32CotqupfeqFulton County Health CenterComment on above:HDL CHOL ATP-III CLASSIFICATION Cardiovascular RiskHDL > or equal to 60 mg/dL LOWHDL < 40 mg/dL HIGHSerum or plasma total cholesterol/high density lipoprotein (HDL) cholesterol mass ratOrdered By: [facility] on 03-03-2023 Cholesterol.total/Cholesterol in HDL [Mass ratio]4.1 {ratio}<5.0Tuscarawas Hospitalodium [Moles/volume] in Serum or PlasmaOrdered By: Gama East on 30-19-5765Dcmzkt [Moles/Vol]141 mmol/E542-849TliikyfryFulton County Health CenterThyrotropin [Units/volume] in Serum or PlasmaOrdered By: Gama Cruzito on 62-96-0524REU Qn2.01 m[IU]/L0.45-5.33[facility] Triglyceride [Mass/volume] in Serum or PlasmaOrdered By: Gamadara East on 03-03-2023 Triglyceride [Mass/Vol]106 mg/dL0-149F[facility] County Health CenterComment on above:TRIG ATP III CLASSIFICATIONTRIG less than 150 mg/dL NormalTRIG 150-199 mg/dL Borderline highTRIG 200-500 mg/dL High TRIG greater than 500 mg/dL Very highStandard traceable to the Center for Disease Conrtrol and Prevention (CDC) test method.Urea nitrogen [Mass/volume] in Serum or PlasmaOrdered By: Gamadara East on 91-42-8058Eeqd nitrogen [Mass/Vol]15 mg/dL7-25F[facility] County Health CenterXR ankle RT min 3V*on 84-37-2594ZM ankle RT min 3V*[facility] [employer] Other XR ankle RT min 3V*[facility] [employer]ino Other XR ankle RT min 3V*1111 [facility] boolino Other XR ankle RT min 3V*[place], [place] [address] boolino Other XR ankle RT min 3V*XRay [facility] [employer] Other XR ankle RT min 3V*[facility] [employer] Other XR ankle RT min 3V*Patient: Kristan Levy MR#: [id number] [employer] Other XR ankle RT min 3V*[id number] [employer] Other XR ankle RT min 3V*: 1970 Acct:[id number] [facility] [employer] Other XR ankle RT min 3V*Age/Sex: 51 / F ADM Date: 04/28/22 [employer] Other XR ankle RT min 3V*Loc: [facility]XD Room: Type: [facility] [employer] Other XR ankle RT min 3V*Attending Dr: Fermin Ramírez II [facility] [employer] Other XR ankle RT min 3V*Copies to: Fermin Ramírez MD [employer] Other XR ankle RT min 3V*Ordering Provider: Fermin Ramírez MDStuyvesant boolino Other XR ankle RT min 3V*Date of Service: 04/28/22[employer] Other XR ankle RT min 3V* XR/XR ankle RT min 3V*: Other closed fracture of distal end of [facility] [employer] Other XR ankle RT min 3V*fibula with [facility] [employer] Other XR ankle RT min 3V*RIGHT ANKLE - 3 [facility] [employer] Other XR ankle RT min 3V*CLINICAL HISTORY: Follow-up closed right Dc B distal fibular fractureStuyvesant boolino Other XR ankle RT min 3V*COMPARISON: Right ankle 03/17/2022 [employer] Other XR ankle RT min 3V*FINDINGS:[employer] Other XR ankle RT min 3V*Distal fibular fracture grossly unchanged in alignment without significant healing since the priorStuyvesant boolino Other XR ankle RT min 3V*study. Distal tibia and ankle mortise appear intact.[employer] Other XR ankle RT min 3V* XR/XR ankle RT min 3V*[employer] Other XR ankle RT min 3V*IMPRESSION:[employer] Other XR ankle RT min 3V*DISTAL FIBULAR FRACTURE, GROSSLY UNCHANGED FROM PRIOR STUDY.[facility] [employer] Other XR ankle RT min 3V*Impression dictated by: Partha Mims Jr., D.O.04/28/2022 3:16 PMNKaleida Health [employer] Other XR ankle RT min 3V*Dictation Location: [facility] [employer] Other XR ankle RT min 3V*Transcribed By: PWS 04/28/[address] [place] [address] [employer] Other XR ankle RT min 3V*Dictated By: Partha Mims Jr, DO 04/28/[address] [place] [address] [employer] Other XR ankle RT min 3V*Signed By:[facility] Other XR ankle RT min 3V*04/28/[address] [place] [address] [employer] Other XR ankle RT min 3V*on 82-69-0034EB ankle RT min 3V* [place] [employer] Other XR ankle RT min 3V*[facility] [employer] Other XR ankle RT min 3V*1111 [facility] [employer] Other XR ankle RT min 3V*[place], [place] [address] [place] [address] [employer] Other XR ankle RT min 3V*[facility] [employer] Other XR ankle RT min 3V*SignedStuyvesant [employer]ino Other XR ankle RT min 3V*Patient: Kristan Levy MR#: [id number] [employer] Other XR ankle RT min 3V*[id number] [employer] Other XR ankle RT min 3V*: 1970 Acct:[id number] [employer] Other XR ankle RT min 3V*Age/Sex: 51 / F ADM Date: 02/17/22 [employer] Other XR ankle RT min 3V*Loc: [facility]XD Room: Type: [facility] [employer] Other XR ankle RT min 3V*Attending Dr: Fermin Ramírez II [employer] Other XR ankle RT min 3V*Copies to: Fermin Ramírez MD [employer] Other XR ankle RT min 3V*Ordering Provider: Fermin Ramírez MDZENT [employer] Other XR ankle RT min 3V*Date of Service: 02/17/22[employer] Other XR ankle RT min 3V* XR/XR ankle RT min 3V*: Other closed fracture of distal end of [facility] Other XR ankle RT min 3V*fibula with [facility] CenterZ[facility] Other XR ankle RT min 3V*RIGHT ANKLE - 3 [facility] Other XR ankle RT min 3V*CLINICAL HISTORY: Follow-up distal fibular fracture.[employer] Other XR ankle RT min 3V*COMPARISON: Right ankle 02/04/2022 [employer] Other XR ankle RT min 3V*FINDINGS:[employer] Other XR ankle RT min 3V*Distal fibular fracture is grossly unchanged in alignment with healing response noted. [facility] Other XR ankle RT min 3V*soft tissue swelling. Ankle mortise appears intact.[employer] Other XR ankle RT min 3V* XR/XR ankle RT min 3V*[employer] Other XR ankle RT min 3V*IMPRESSION:[facility] [employer] Other XR ankle RT min 3V*HEALING DISTAL FIBULAR FRACTURE. [facility] [employer] Other XR ankle RT min 3V*Impression dictated by: Partha Mims Jr., D.OHalley02/17/2022 12:33 PMNKaleida Health [employer] Other XR ankle RT min 3V*Dictation Location: [address] [employer] Other XR ankle RT min 3V*Transcribed By: [facility] 02/17/[address] [place] [address] [employer] Other XR ankle RT min 3V*Dictated By: Partha Mims Jr DO 02/17/[address] [place] [address] [employer] Other XR ankle RT min 3V*Signed By:[employer] Other XR ankle RT min 3V*02/17/[address] [place] [address] [employer] Other XR ankle RT min 3V*on 38-44-7145KL ankle RT min 3V* [facility] [employer] Other XR ankle RT min 3V*[facility] [employer] Other XR ankle RT min 3V*1111 [facility] [employer] Other XR ankle RT min 3V*[address] [employer] Other XR ankle RT min 3V*[facility] [employer] Other XR ankle RT min 3V*SignedStuyvesant [employer]ino Other XR ankle RT min 3V*Patient: Kristan Levy MR#: [id number] [employer] Other XR ankle RT min 3V*[id number] [employer] Other XR ankle RT min 3V*: 1970 Acct:[id number] [employer] Other XR ankle RT min 3V*Age/Sex: 51 / F ADM Date: 01/20/22 [employer] Other XR ankle RT min 3V*Loc: [facility] Room: Type: [facility] [employer] Other XR ankle RT min 3V*Attending Dr: Fermin Ramírez II, MDStuyvesant boolino Other XR ankle RT min 3V*Copies to: Fermin Ramírez MD [employer] Other XR ankle RT min 3V*Ordering Provider: Fermin Ramírez MDZENT [employer] Other XR ankle RT min 3V*Date of Service: 01/20/22[facility] Other XR ankle RT min 3V* XR/XR ankle RT min 3V*: Right ankle injuryNochildren's mercy hospital [employer] Other XR ankle RT min 3V*XR ankle RT min 3V* 01/20/2022 8:59 [facility] [employer] Other XR ankle RT min 3V*SIGNS AND SYMPTOMS: Follow-up right ankle fractureStuyvesant [employer]ino Other XR ankle RT min 3V*PROTOCOL: Frontal, lateral, and oblique radiographs of the right ankleNoFoundations Recovery Network Other XR ankle RT min 3V*COMPARISON: 01/17/2022ZENT [employer] Other XR ankle RT min 3V*FINDINGS:[employer] Other XR ankle RT min 3V*There is an obliquely aorta fracture of the lateral malleolus which is relatively nondisplaced. [facility] [employer] Other XR ankle RT min 3V*significant interval healing or change in alignment. There is adjacent soft tissue swelling. [facility] CenterBl[facility] Other XR ankle RT min 3V*ankle mortise is preserved.[employer] Other XR ankle RT min 3V* XR/XR ankle RT min 3V*[employer] Other XR ankle RT min 3V*IMPRESSION:[employer] Other XR ankle RT min 3V*Unchanged obliquely oriented fracture of the lateral malleolus without change in alignment.[employer] Other XR ankle RT min 3V*Impression dictated by: Paulie Chavarria M.D.01/20/2022 3:00 [facility] Other XR ankle RT min 3V*Dictation Location: [place] [address] [employer] Other XR ankle RT min 3V*Transcribed By: [facility] 01/20/22 [facility] [employer] Other XR ankle RT min 3V*Dictated By: Paulie Chavarria II, MD 01/20/[address] [place] [address] [employer] Other XR ankle RT min 3V*Signed By:[employer] Other xr ankle RT min 3V*01/20/22 [facility] Other XR tibia fibula RT 2V*on 37-26-7328OZ tibia fibula RT 2V* XR/XR tibia fibula RT 2V*: Right ankle injuryNoFoundations Recovery Network Other XR tibia fibula RT 2V*XR tibia fibula RT 2V* 01/20/2022 8:59 [facility]ENIXBl[facility] Other XR tibia fibula RT 2V*SIGNS AND SYMPTOMS: Right ankle injury with pain and swelling in the lateral malleolusZENT [employer] Other XR tibia fibula RT 2V*PROTOCOL: Frontal and lateral graphs of the right tibia and fibulaStuyvesant [employer]ino Other XR tibia fibula RT 2V*There is an obliquely aorta fracture of the lateral malleolus with adjacent soft tissue swelling.[employer] Other XR tibia fibula RT 2V*There is adjacent soft tissue swelling. The ankle mortise is preserved. The remaining tibia andNochildren's mercy hospital [employer] Other XR tibia fibula RT 2V*fibula are intact.[employer] Other xr tibia fibula RT 2V* XR/XR tibia fibula RT 2V*[facility] [employer] Other xr tibia fibula RT 2V*No additional fractures.[employer] Other xr tibia fibula RT 2V*Impression dictated by: Paulie Chavarria M.D.01/20/2022 3:01 [facility] [employer] Other XR tibia fibula RT 2V*Transcribed By: PWS 01/20/22 [facility] Other xr tibia fibula RT 2V*Dictated By: Paulie Chavarria II, MD 01/20/[address] [place] [address] [employer] Other xr tibia fibula RT 2V*01/20/22 [facility] Other Coding Summary.on 65-42-6834Uvnvag Summary. CD:[id number]:[id number]+PGhlYWQ+CI4BJMUiM71arSSipJ6EO5jHLW7MHGASVNWJSQ7HSY8eq AT3OGvwV6NkemGr [file] LWNv (more content not included)...[facility] HospitalPhysician Orderon 88-80-7528Jfvfknnwf Order [id number]:127NormalWyandot Memorial HospitalBasophils Auto (Bld) [#/Vol]Ordered By: Oracio Blackwood on 12-25-2021 Basophils (Bld) [#/Vol]0.0 10*3/uL0.0-0.2FUniversity Hospitals Samaritan Medical Center Basophils/100 WBC Auto (Bld)Ordered By: Oracio Blackwood on 12-25-2021 Basophils/100 WBC (Bld)0.6 %.[facility] CenterBlood hemoglobin measurement (mass/volume)Ordered By: Oracio Blackwood on 96-44-7585Uslabssebm (Bld) [Mass/Vol]14.2 g/dL11.8-15.4FUniversity Hospitals Samaritan Medical CenterBlood leukocytes automated count (number/volume)Ordered By: Oracio Blackwood on 15-67-9833PYQ (Bld) [#/Vol]4.6 10*3/uL4.5-11.0[facility] Creatinine and Glomerular filtration rate.predicted panel (S/P/Bld)Ordered By: Oracio Blackwood on 84-18-7776Fxempuiwtd [Mass/Vol]0.97 mg/dL0.44-1.03[facility] CenterEosinophils Auto (Bld) [#/Vol]Ordered By: Oracio Blackwood on 83-13-0710Qrxlldalhxh (Bld) [#/Vol]0.1 10*3/uL0.0-0.45[facility] Health CenterEosinophils/100 WBC Auto (Bld)Ordered By: Oracio Blackwood on 77-72-1593Kaqtdilrxut/100 WBC (Bld)1.5 %.[facility] Erythrocyte distribution width Auto (RBC) [Ratio]Ordered By: Oracio Blackwood on 95-28-6928Wyiytgmfghc distribution width (RBC) [Ratio]12.9 %11.9-15.3FUniversity Hospitals Samaritan Medical CenterEstimated glomerular filtration rate (GFR) non- AmericanOrdered By: Oracio Blackwood on 56-17-0092YXP/1.73 sq M.predicted among non-blacks MDRD (S/P/Bld) [Vol rate/Area]> 60 mL/MinFulton County Health CenterHematocrit Auto (Bld) [Volume fraction]Ordered By: Oracio Blackwood on 15-14-5303Hasozjrfbx (Bld) [Volume fraction]42.1 %34.0-46.4FUniversity Hospitals Samaritan Medical CenterLaboratory - Hematology and Cell countsOrdered By: Oracio Blackwood on 97-05-9317Lwixwgxcj RBC/100 WBC (Bld) [Ratio]0.0 %0-0.5FUniversity Hospitals Samaritan Medical CenterLymphocytes Auto (Bld) [#/Vol]Ordered By: Oracio Blackwood on 09-82-9552Fmjtvwlkiii (Bld) [#/Vol]1.3 10*3/uL1.00-4.8[facility] Health CenterLymphocytes/100 WBC Auto (Bld)Ordered By: Oracio Blackwood on 12-25-2021 Lymphocytes/100 WBC (Bld)28.6 %.[facility] HospitalH Auto (RBC) [Entitic mass]Ordered By: Oracio Blackwood on 85-35-4969IOK (RBC) [Entitic mass] 31.8 pg24.7-34.3FUniversity Hospitals Samaritan Medical CenterMCHC Auto (RBC) [Mass/Vol] Ordered By: Oracio Blackwood on 32-20-6686BDGT (RBC) [Mass/Vol]33.7 g/dL32.0-35.0 [facility] CenterMCV Auto (RBC) [Entitic vol]Ordered By: Oracio Blackwood on 34-29-0150VGX (RBC) [Entitic vol]94.5 xP86-798DfthnwfobFulton County Health CenterMonocytes Auto (Bld) [#/Vol]Ordered By: Oracio Blackwood on 57-00-0760Qdeksisqn (Bld) [#/Vol]0.4 10*3/uL0.0-0.8[facility] Health CenterMonocytes/100 WBC Auto (Bld)Ordered By: Oracio Blackwood on 12-25-2021 Monocytes/100 WBC (Bld)8.2 %.[facility] Health CenterNeutrophils Auto (Bld) [#/Vol]Ordered By: Oracio Blackwood on 94-14-8806Nrhulvcaesf (Bld) [#/Vol] 2.8 10*3/uL1.8-7.7FUniversity Hospitals Samaritan Medical CenterNeutrophils/100 WBC Auto (Bld)Ordered By: Oracio Blackwood on 77-35-2405Ixufnaynbtw/100 WBC (Bld)61.1 %. [facility] CenterNo Panel InformationOrdered By: Oracio Blackwood on 79-78-5780Wwugnpsvm GFR ()> 60 mL/MinFulton County Health CenterComment on above:GFR estimated reference range: According to KDOQI guidelines, <60 ml/min/1.73m2 is sufficient todiagnose a patient with chronic kidney disease.Pharmacy Creatinine Clearance (ChemN/[facility] St[facility] John Medical CenterPlatelet mean volume Auto (Bld) [Entitic vol]Ordered By: Oracio Blackwood on 86-47-3284Sdcklfxe mean volume (Bld) [Entitic vol]7.4 fL6.3-10.7FUniversity Hospitals Samaritan Medical CenterPlatelets Auto (Bld) [#/Vol]Ordered By: Oracio Blackwood on 69-01-0962Uvfunnwyr (Bld) [#/Vol]212 10*3/lQ426-776AatgdcrxrFulton County Health CenterRBC Auto (Bld) [#/Vol]Ordered By: Oracio Blackwood on 21-05-4734QKA (Bld) [#/Vol]4.46 10*6/uL3.60-5.00Tuscarawas Hospitalerum or plasma anion gap determinationOrdered By: Oracio Blackwood on 92-55-2225Jsktw gap [Moles/Vol]14.4 mmol/L6.0-15.0Tuscarawas Hospitalerum or plasma calcium measurement (mass/volume)Ordered By: Oracio Blackwood on 50-31-0386Gxzlrzy [Mass/Vol]9.3 mg/dL8.2-10.2FBrown Memorial Hospitalerum or plasma chloride measurement (moles/volume)Ordered By: Oracio Blackwood on 12-25-2021 Chloride [Moles/Vol]97 mmol/A21-389IehnppfvaTuscarawas Hospitalerum or plasma glucose measurement (mass/volume)Ordered By: Oracio Blackwood on 12-25-2021 Glucose [Mass/Vol]64 mg/cP82-743OgovkzlxwFulton County Health CenterComment on above:ADA recommended reference range Random Glucose Reference Range is dependent on time and content of last meal. Glucose of more than 200 mg/dL in a nonstressed, ambulatory subject supports the diagnosis of Diabetes Mellitus.ADA recommended reference rangeRandom Glucose Reference Range is dependent on time and content of last meal. Glucose of more than 200 mg/dL in a nonstressed, ambulatory subject supports the diagnosisof Diabetes Mellitus.Serum or plasma potassium measurement (moles/volume)Ordered By: Oracio Blackwood on 57-62-7780Yytypxebi [Moles/Vol]4.3 mmol/L3.5-5.1FBrown Memorial Hospitalerum or plasma sodium measurement (moles/volume)Ordered By: Oracio Blackwood on 30-12-9202Rmukbh [Moles/Vol]135 mmol/L349-170WmieaxqbbTuscarawas Hospitalerum or plasma total carbon dioxide measurement (moles/volume)Ordered By: Oracio Blackwood on 97-29-8462PI7 [Moles/Vol]27.9 mmol/L 22.0-30.0Tuscarawas Hospitalerum or plasma urea nitrogen measurement (mass/volume)Ordered By: Oracio Blackwood on 61-18-7192Kubd nitrogen [Mass/Vol]8 mg/dL9-23F[facility] CenterOCT/HRT MACULA OUon 51-93-4958DEB/HRT MACULA OUOCT OU (01/10/2019) - good quality in both eyes OD - CMT 228; new IRF/SRF in fovea with PED; the superonasal large elevated subretinal lesion(s) are stable OS - CMT 274; normal foveal contour no [facility] (02/21/2019) - good quality in both eyes OD - CMT 247; improved IRF/SRF in fovea with collapsed PED; the superonasal large elevated subretinal lesion(s) are stable OS - CMT 275; normal foveal contour no SRF/IRF - [facility]OCT [facility]U (04/25/2019) - good quality in both eyes OD - CMT 357; improved IRF/SRF in fovea with collapsed PED; the superonasal large elevated subretinal lesion(s) are stable OS - CMT 276; normal foveal contour no SRF/IRF - [facility]OCT [facility]U (07/04/2019) - good quality in both eyes OD - CMT 363; improved IRF/SRF in fovea with subretinal fibrosis; the superonasal large elevated subretinal lesion(s) are stable OS - CMT 276; normal foveal contour no SRF/IRF - [facility]OCT performed today (09/12/19 ) - [facility] performed today (01/28/20 ) - [facility]OCT performed today (04/14/20 ) - [facility]OCT performed today (04/27/21 ) - interpretation [facility] the [facility] HospitalCOVID-19on 35-70-1965BPQLQ-19, NAATNot DetectedPerry County Memorial HospitalalNot Melissa Memorial HospitalComment on above:Result Comment: Rapid NAAT: Negative results should be treated as presumptive and, if inconsistent with clinical signs and symptoms or necessary for patient management, should be tested with an alternative molecular assay. Negative results do not preclude SARS-CoV-2 infection and should not be used as the sole basis for patient management decisions. This test has been authorized by the FDA under an Emergency Use Authorization (EUA) for use by authorized laboratories. Fact sheet for Healthcare Providers: https://www.fda.gov/media/459478/download Fact sheet for Patients: https://www.fda.gov/media/180393/download METHODOLOGY: Isothermal Nucleic Acid AmplificationPerformed By: #### COVRG #### [place] [address] HLVIFFORM REPORTon 70-20-0700ZHQQHZIOC [place] [id number] OPERATIVE REPORT PATIENT NAME: KRISTAN LEVY : 1970 MED REC NO: [id number] ROOM: ACCOUNT NO: [id number] ADMIT DATE: 07/08/2020 PROVIDER: Mynor Peres MD DATE OF PROCEDURE: 07/08/2020 DIAGNOSES: 1. Deviated septum. 2. Inferior turbinate hypertrophy. OPERATIONS PERFORMED: 1. Septoplasty. 2. Bilateral inferior turbinate coblation radiofrequency reduction with outfracture. SURGEON: Mynor Peres MD ANESTHESIA: General. INDICATION: A 49-year-old female with significant history of chronic nasal obstruction clearly identified on scanning as well as physical exam with recommendation for definitive septoplasty and turbinate surgery to optimize her airway as conservative measures had failed. OPERATIVE PROCEDURE: The patient was taken to the operating room and administered general anesthesia with appropriate prep and drape and time-out performed. The patient had each of the inferior turbinates identified. Each inferior turbinate was infiltrated with lidocaine 1%, epinephrine 1:100,000 and the same solution instilled into the right mucoperichondrium and mucoperiosteum of the nasal septum. The patient had each of the inferior turbinates outfractured and subjected to an anterior and posterior pass with the coblation radiofrequency wand at a setting of 6 for roughly 8-10 seconds per pass. Once it was accomplished, a standard hemitransfixion incision was carried out on the right-hand side with elevation of the right-sided mucoperichondrial and mucoperiosteal flap. The bony cartilaginous junction was transgressed with elevation of the left-sided mucoperiosteal flap. Superior and inferior cuts were made to remove the deflected portion of septal bone and anteriorly we shaved the cartilage free to facilitate mobilization of the residual cartilaginous septum from a right to left direction placing it more in the midline of the maxillary crest with significant improvement in the nasal airway in particular on the right hand side. All free fragments of cartilage/bone removed accordingly and the patient had a hemitransfixion incision closed with interrupted chromic suture with a very much improved nasal airway again in particular on the right-hand side. The patient had achromic utilized to close the hemitransfixion incision followed by placement of septal splints secured with a hhiqqji-ozp-cglgbrk Prolene suture followed by Telfa packing secured with a posusmb-pwr-wdhaawi Prolene suture. The patient released, taken to recovery in stable condition. Estimated blood loss was minimal. No complications. MYNOR PERES MD [id number] Doc#: [id number] CC: Mynor Peres MDSt. Francis Hospital With Platelet No Differentialon 53-80-2825Bfopngalyap distribution width (RBC) [Ratio]13.3 % Vemnlb29.5-14.5Sedgwick County [facility] HospitalComment on above:Performed By: #### CBCND #### [facility] [address] [place] [address] Dpqkhsqnmp (Bld) [Volume fraction]40.1 %Agurxd81.0-47.0S[facility] HospitalComment on above:Performed By: #### CBCND #### [facility] [address] [place] [address] Tqjsyftpoy (Bld) [Mass/Vol]13.5 g/tGPrprau14.0-16.0S[facility] HospitalComment on above:Performed By: #### CBCND #### [facility] [address] [place] [address] FWM (RBC) [Entitic mass]32.1 pgCritically high27.0-31.3MArkansas Valley Regional Medical CenterComment on above:Performed By: #### CBCND #### [facility] [address] [place] [address] EVPY (RBC) [Mass/Vol]33.5 %Eqzdrf02.0-37.0S[facility] HospitalComment on above:Performed By: #### CBCND #### [facility] [address] [place] [address] TQV (RBC) [Entitic vol]95.6 dGDbcnem37.0-100.0S[facility] HospitalComment on above:Performed By: #### CBCND #### [facility] [address] [place] [address] Ytoxglhyy (Bld) [#/Vol]242 10*3/yJAxngrn343-869PszxbSedgwick County Memorial HospitalComment on above:Performed By: #### CBCND #### [facility] [address] [place] [address] DGW (Bld) [#/Vol]4.19 10*6/uLLow4.20-5.40S[facility] County [facility] HospitalComment on above:Performed By: #### CBCND #### [facility] [address] [place] [address] CHH (Bld) [#/Vol]5.0 10*3/uLNormal4.8-10.8S[facility] HospitalComment on above:Performed By: #### CBCND #### [facility] [address] [place] [address] WBPTtp [id number] (NSFRVW) TAMANNAKRISTAN Adkins ([id number]) 1970 F Date Time Provider Department 09/21/19 GERONIMO ONEAL NSFRVW During your visit today, we recorded the following information about you: LeilaLorrie Adkins Pss 09/21/2019 9:04 AM Signed I received a phone call from Ms. Espinoza this morning. She states indicated concerns about her incision having a thumbnail knot to the right of the incision and the she states that the incision feels as though it has fluid or pressure and is tender to the touch. She also reports a shock and tingling feeling that radiates into her forearm. She says her fingers, however, feel fine. She says she's not overly concerned , but wanted the doctor to know. She feels she may possibly have an infection. Please call patient. Thank you. Brianna Adkins [facility] Suzan Hernandez, RN, RN 09/21/2019 9:11 AM Signed Patient is s/p R open carpal tunnel release from 07/10/19 Call to patient without answer. Voice message left asking for return call as we have a couple of questions - does she have a fever - What is the pain level on a 0-10 pain scale. Should patient return call please ask the above questions. Angel Gilliam PA-C 09/21/2019 12:25 PM Signed Please also ask her to send picture of incision to [phone] Suzan Hernandez, RN, RN 09/21/2019 2:53 PM Signed Spoke with patient and informed of PA's response. She said that in addition to the below she is afebrile and that the area looks and feels like A hard pimple. Pain is 5/10 ordinarily and if the area is leaned against something or she is active it will send a shooting pain up her forearm. Awaiting imaging Angel Gilliam PA-C 09/21/2019 3:39 PM Signed Reviewed image. I do not see anything that looks like a pimple. Patient does not want to try membrane stabilizers at this time, would like to continue with tylenol at This time. Will follow up at 09/30 visit. Allergies As of Date: 09/21/2019 (No Known Allergies) Date Reviewed: 08/14/2019 Reviewed by: Angel Gilliam (Pa) - Fully Assessed Reason for Visit: Possible incision infection [Other] Prescriptions as of 09/21/2019 Sig: AMITRIPTYLINE 10 MG TABLET TAKE 1 TABLET BY MOUTH EVERYD* BUPROPION XL 300 MG 24 HR TAB Take 150 mg by mouth once janis* MULTIVITAMIN ORAL VITAMIN C ORAL Take by mouth. CHOLECALCIFEROL (VITAMIN D3) * Take 50,000 Units by mouth on* NIACIN ER 1,000 MG TABLET,EXT* Take by mouth. IRON ORAL Take by mouth. 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 Heart murmur [R01.1] More... Encounter Status:Closed by ANGEL GILLIAM PA-C on [facility]/19[facility] [id number] (AVPRAD) KRISTAN ESPINOZA ( ) 1970 F Date Time Provider Department 04/27/19 JESSICA MACEDO During your visit today, we recorded the following information about you: Jessica Macedo MD 04/27/2019 2:25 PM Signed Called again - no response. Left vmail to call back Allergies As of Date: 04/27/2019 (No Known Allergies) Date Reviewed: 12/27/2018 Reviewed by: Nadja Kenney Ma - Fully Assessed Reason for Visit: Results [95] Prescriptions as of 04/27/2019 Sig: AMITRIPTYLINE 10 MG TABLET TAKE 1 TABLET BY MOUTH EVERYD* BUPROPION XL 300 MG 24 HR TAB MULTIVITAMIN ORAL VITAMIN C ORAL Take by mouth. CHOLECALCIFEROL (VITAMIN D3) * Take 50,000 Units by mouth on* NIACIN ER 1,000 MG TABLET,EXT* Take by mouth. IRON ORAL Take by mouth. VITAMIN D2 1,250 MCG (50,000 * Problem List As Of Date: 04/27/2019 (None) Encounter Status:Closed by JESSICA MACEDO on 04/27/19[facility] Vital Signs Date TimeVital SignValuePerforming BmmkxgpuaCivrgfbb72-33-5041 18:15-0400 Diastolic blood hgcafhsf69 mm[Hg]Gilberto Carrillo DPM Work Phone: bon [facility]06-23-2025 18:15-0400Heart rate87 /Alvarez Carrillo DPM Work Phone: [facility]06-23-2025 18:15-0400 Respiratory rate14 /minGilberto Carrillo DPM Work Phone: [facility]06-23-2025 18:15-9114FoI1% (BldA) [Mass fraction]94 %Gilberto Carrillo DPM Work Phone: [facility]06-23-2025 18:15-0400Systolic blood mm[Hg]Gilberto Carrillo DPM Work Phone: [facility]06-23-2025 17:08-0400Body cjdgudpfzko82.2 [degF]Gilberto Carrillo DPM Work Phone: [facility]06-23-2025 10:46-0400Body mass index (BMI) [Ratio]25.7 kg/m2Gilberto Carrillo DPM Work Phone: [facility]06-23-2025 10:46-0400Body pjnexy91.93 kgGilberto Carrillo DPM Work Phone: bon [facility]06-23-2025 10:41-0400Body wydtee943.3 cmGilberto Carrillo DPM Work Phone: [facility]06-02-2025 08:53-0400Body bymjzg385.99 cmEric Mast DO Work Phone: [facility]06-02-2025 08:53-0400 Body mass index (BMI) [Ratio]25.2 kg/m2Eric Mast DO Work Phone: [facility]06-02-2025 08:53-0400 Body jgdlqcgnvle38.7 [degF]Gama Mast DO Work Phone: [facility]06-02-2025 08:53-0400 Body yfnbds92.2 kgEric Mast DO Work Phone: 1(419)[address] [place], [place] 8950806-02-2025 08:53-0400 Diastolic blood cydijaby02 mm[Hg]Gama Mast DO Work Phone: 1(086)[address] [place], [place] 8950806-02-2025 08:53-0400 Heart rate79 /minEric Mast DO Work Phone: 1(397)[address] [place], [place] 8950806-02-2025 08:53-0400 Respiratory rate18 /minEric Mast DO Work Phone: 1(411)[address] [place], [place] 8950806-02-2025 08:53-0400 SaO2% (BldA) [Mass fraction]97 %Gama Mast DO Work Phone: 1(666)[address] [place], [place] 8950806-02-2025 08:53-0400 Systolic blood hnhuzmxt256 mm[Hg]Gama Mast DO Work Phone: 1(629)[address] [place], [place] 8950804-04-2025 08:50-0400 Body yoxwio915.26 cmEric Mast DO Work Phone: 1(476)[address] [place], [place] 8950804-04-2025 08:50-0400 Body mass index (BMI) [Ratio]24.9 kg/m2Eric Mast DO Work Phone: 1(293)[address] [place], [place] 8950804-04-2025 08:50-0400 Body bezvdtibdaj18.1 [degF]Gama Mast DO Work Phone: 1(179)[address] [place], [place] 8950804-04-2025 08:50-0400 Body .65 kgEric Mast DO Work Phone: 1(391)[address] [place], [place] 8950804-04-2025 08:50-0400 Diastolic blood liisyqsm83 mm[Hg]Gama Mast DO Work Phone: 1(817)[address] [place], [place] 8950804-04-2025 08:50-0400 Heart rate81 /minEric Mast DO Work Phone: 1(228)[address] [place], [place] 8950804-04-2025 08:50-0400 Respiratory rate16 /minEric Mast DO Work Phone: 1(607)[address] [place], [place] 8950804-04-2025 08:50-0400 SaO2% (BldA) [Mass fraction]94 %Gama Mast DO Work Phone: 1(930)9-[address] [place], [place] 7056004-04-2025 08:50-0400 Systolic blood iwxthcbh018 mm[Hg]Gama Mast DO Work Phone: 1(963)[address] [place], [place] 8950803-10-2025 11:36-0400 Body .26 cmEric Mast DO Work Phone: 1(619)[address] [place], [place] 4905503-10-2025 11:36-0400 Body mass index (BMI) [Ratio]25 kg/m2Eric Mast DO Work Phone: 1(006)[address] [place], [place] 4905503-10-2025 11:36-0400 Body rqzrtxhkouo06.5 [degF]Gama Mast DO Work Phone: 1(151)[address] [place], [place] 4905503-10-2025 11:36-0400 Body pychon21.88 kgEric Mast DO Work Phone: 1(249)[address] [place], [place] 4905503-10-2025 11:36-0400 Diastolic blood slmrpapw49 mm[Hg]Gama Mast DO Work Phone: 1(236)[address] [place], [place] 4905503-10-2025 11:36-0400 Heart rate79 /minEric Mast DO Work Phone: 1(883)[address] [place], [place] 4905503-10-2025 11:36-0400 SaO2% (BldA) [Mass fraction]98 %Gama Mast DO Work Phone: 1(113)[address] [place], [place] 4905503-10-2025 11:36-0400 Systolic blood iuiwpfaw881 mm[Hg]Gama Mast DO Work Phone: 1(086)[address] [place], [place] 4905503-07-2025 11:19-0500 Body cggynn092.26 cmEric Mast DO Work Phone: 1(722)[address] [place], [place] 4905503-07-2025 11:19-0500 Body mass index (BMI) [Ratio]25 kg/m2Eric Mast DO Work Phone: 1(040)[address] [place], [place] 4905503-07-2025 11:19-0500 Body dmrcqnwmjge87.6 [degF]Gama Mast DO Work Phone: 1(776)[address] [place], [place] 4905503-07-2025 11:19-0500 Body taamhc04.88 kgEric Mast DO Work Phone: 1(079)[address] [place], [place] 4905503-07-2025 11:19-0500 Diastolic blood qjpidunc90 mm[Hg]Gama Mast DO Work Phone: 1(335)[address] [place], [place] 4905503-07-2025 11:19-0500 Heart rate73 /minEric Mast DO Work Phone: 1(922)[address] [place], [place] 4905503-07-2025 11:19-0500 SaO2% (BldA) [Mass fraction]98 %Gama Mast DO Work Phone: 1(549)[address] [place], [place] 4905503-07-2025 11:19-0500 Systolic blood vdgasrps786 mm[Hg]Gama Mast DO Work Phone: 1(633)[address] [place], [place] 4905503-04-2025 12:13-0500 Body .26 cmEric Mast DO Work Phone: 1(477)[address] [place], [place] 4905503-04-2025 12:13-0500 Body jpjbbgtiscq53.1 [degF]Gama Mast DO Work Phone: 1(969)[address] [place], [place] 4905503-04-2025 12:13-0500 Body .1 kgEric Mast DO Work Phone: 1(705)[address] [place], [place] 4905503-04-2025 12:13-0500 Diastolic blood bsqlgafv03 mm[Hg]Gama Mast DO Work Phone: 1(939)[address] [place], [place] 4905503-04-2025 12:13-0500 Heart rate81 /minEric Mast DO Work Phone: 1(336)[address] [place], [place] 4905503-04-2025 12:13-0500 Respiratory rate20 /minEric Mast DO Work Phone: 1(947)[address] [place], [place] 4905503-04-2025 12:13-0500 SaO2% (BldA) [Mass fraction]99 %Gama Mast DO Work Phone: 1(873)[address] [place], [place] 4905503-04-2025 12:13-0500 Systolic blood noypcuue140 mm[Hg]Gama Mast DO Work Phone: 1(695)[address] [place], [place] 4905511-25-2024 08:56-0500 Body zctaat894.8 cmEric Mast DO Work Phone: 1(299)[address] [place], [place] 4905511-25-2024 08:56-0500 Body mass index (BMI) [Ratio]24.7 kg/m2Eric Mast DO Work Phone: 1(330)[address] [place], [place] 4905511-25-2024 08:56-0500 Body dtqgeghremc51.8 [degF]Gama Mast DO Work Phone: 1(858)[address] [place], [place] 4905511-25-2024 08:56-0500 Body yjymjj38.24 kgEric Mast DO Work Phone: 1(764)[address] [place], [place] 4905511-25-2024 08:56-0500 Diastolic blood qwkwqahn55 mm[Hg]Gama Mast DO Work Phone: 1(437)[address] [place], [place] 4905511-25-2024 08:56-0500 Heart rate75 /minEric Mast DO Work Phone: 1(530)[address] [place], [place] 4905511-25-2024 08:56-0500 SaO2% (BldA) [Mass fraction]95 %Gama Mast DO Work Phone: 1(679)[address] [place], [place] 4905511-25-2024 08:56-0500 Systolic blood wjbqnynh951 mm[Hg]Gama Mast DO Work Phone: 1(245)[address] [place], [place] 4905511-11-2024 09:16-0500 Body .3 Kwadwo Navarro MD Work Phone: [facility] CenterIcuhaznkao70-82-6558 09:16-0500Body mass index (BMI) [Ratio]25.7 kg/v6CogryuAnder Navarro MD Work Phone: [facility] CenterNfapifrjtf47-07-4568 09:16-0500Body nawwfd54.93 kgAnder Navarro MD Work Phone: 3(750)[facility]-1217[facility] CenterWtgopwhzyt14-17-4823 09:16-0500Diastolic blood aespwkyw52 mm[Hg]Ander Navarro MD Work Phone: 1(315)[facility]-9059[facility] CenterOmyctjfldw68-27-6463 09:16-0500Systolic blood cxpberoi807 mm[Hg]Ander Navarro MD Work Phone: 9(797)[facility]-8482[facility] CenterZhtdjdgock89-02-1646 11:33-0400Body mass index (BMI) [Ratio]23.68 kg/t1Ddpfqxm Visci DO Work Phone: 6(211)014-[address] [place], [place] [address]Pmhzxcmirz01-69-1770 11:33-0400Body rctchy38.84 kgRichiris Visci DO Work Phone: 7(405)[facility] Center[facility] CenterAanxqkswfb69-40-5922 11:33-0400Diastolic blood fpssihhb13 mm[Hg]Elizabeth Visci DO Work Phone: 0(005)[facility] CenterWlrzsjejeo80-35-5766 11:33-0400Systolic blood oioaafsx519 mm[Hg]Elizabeth Visci DO Work Phone: 6(986)244-[facility] CenterHgewpeotdz71-12-4760 10:41-0400Body myycmo612.8 cmFulton County Health Center09-20-2024 10:41-0400Body mass index (BMI) [Ratio]23.3 kg/g6NxsjehkhcFulton County Health Center09-20-2024 10:41-0400Body fagvwlkhovs78.6 [degF][facility]09-20-2024 10:41-0400Body eoqyfp72.59 kgFulton County Health Center09-20-2024 10:41-0400Diastolic blood vyogplpc35 mm[Hg][facility]09-20-2024 10:41-0400 Inhaled oxygen flow rate97 L/minMer[facility] Amvpsg91-49-8259 10:41-0400Systolic blood vnribizd964 mm[Hg][facility] 07-25-2023 10:58-0400Body rszxoc716.8 cmFulton County Health Center 07-25-2023 10:58-0400Body mass index (BMI) [Ratio]24.5 kg/q8PgatuwieoFulton County Health Center04-08-2024 10:58-0400Body xlhfzzxxruv34.3 [degF][facility]04-08-2024 10:58-0400Body erayjl05.76 kgFulton County Health Center04-08-2024 10:58-0400Diastolic blood emfrjsde05 mm[Hg][facility]04-08-2024 10:58-0400Heart rate97 /[facility]04-08-2024 10:58-8836EwY3% (BldA) [Mass fraction]96 %[facility]04-08-2024 10:58-0400Systolic blood aqqlzlcw717 mm[Hg] [facility]03-04-2024 09:41-0500Body .8 cm [facility]03-04-2024 09:41-0500Body mass index (BMI) [Ratio]25.1 kg/o7WvppkvkecFulton County Health Center03-04-2024 09:41-0500Body qpzktzebtxo53.3 [degF][facility]03-04-2024 09:41-0500Body bisgib91.37 kgFulton County Health Center03-04-2024 09:41-0500Diastolic blood vlewgdot54 mm[Hg][facility]03-04-2024 09:41-0500 Heart rate86 /[facility]03-04-2024 09:41-9680LnZ5% (BldA) [Mass fraction]98 %[facility]03-04-2024 09:41-0500 Systolic blood lyafwgnh890 mm[Hg][facility]12-28-2023 08:00-0500Body .8 cmEric Mast Other [facility] Other 12-28-2023 08:00-0500Body mass index (BMI) [Ratio]27.4 kg/m2Eric Mast Other [employer] Other 12-28-2023 08:00-0500Body bokzojhhjqm32.4 [degF]Gama Mast Other [employer] Other 12-28-2023 08:00-0500Body jiiwbc84.64 kgEric Mast Other [employer] Other 12-28-2023 08:00-0500Diastolic blood qcokprlb17 mm[Hg] Gama Mast Other [employer] Other 12-28-2023 08:00-0500Respiratory rate18 /minEric Mast Other [employer] Other 12-28-2023 08:00-4435PpN7% (BldA) [Mass fraction]96 % Gama Mast Other [employer] Other 12-28-2023 08:00-0500Systolic blood ktzxozxs044 mm[Hg] Gama Mast Other [employer] Other 11-16-2023 08:45-0500Body rpxnoy464.8 cmEric Mast Other [employer] Other 11-16-2023 08:45-0500Body mass index (BMI) [Ratio] 28.87 kg/m2Eric Mast Other [employer] Other 11-16-2023 08:45-0500Body jkwzoghvibv94.3 [degF]Gama Mast Other [employer] Other 11-16-2023 08:45-0500Body .26 kgEric Mast Other [employer] Other 11-16-2023 08:45-0500Diastolic blood mm[Hg] Gama Mast Other [employer] Other 50-771821-34931226-43-6845 08:45-0500Respiratory rate18 /minEric Mast Other [employer] Other 11-16-2023 08:45-3445XiR4% (BldA) [Mass fraction]96 % Gama Mast Other [employer] Other 11-16-2023 08:45-0500Systolic blood mocodxza952 mm[Hg] Gama Mast Other [employer] Other 12-20-2022 15:30-0500Body .8 cmEric Mast Other [employer] Other 12-20-2022 15:30-0500Body mass index (BMI) [Ratio] 28.01 kg/m2Eric Mast Other [employer] Other 12-20-2022 15:30-0500Body [degF]Gama Mast Other [employer] Other 12-20-2022 15:30-0500Body flmhom85.54 kgEric Mast Other [employer] Other 12-20-2022 15:30-0500Diastolic blood xkochnla98 mm[Hg] Gama Mast Other [employer] Other 12-20-2022 15:30-0500Respiratory rate18 /minEric Mast Other [employer] Other 12-20-2022 15:30-2390WqF2% (BldA) [Mass fraction]98 % Gama Mast Other [employer] Other 12-20-2022 15:30-0500Systolic blood nczdzbus978 mm[Hg] Gama Mast Other [employer] Other 11-30-2022 09:45-0500Body bdjyyv307.8 cmRobert Darrell II Other [employer] Other 11-30-2022 09:45-0500Body mass index (BMI) [Ratio] 27.83 kg/h5Ejvlqd Bedrock II Other [employer] Other 11-30-2022 09:45-0500Body zwieup84 kgRobert Bedrock II Other [employer] Other 11-02-2022 10:15-0400Body auvpdw080.8 cmRobert Bedrock II Other [employer] Other 11-02-2022 10:15-0400Body mass index (BMI) [Ratio] 27.83 kg/j8Achxam Bedrock II Other [employer] Other 11-02-2022 10:15-0400Body nhiegj31 kgRobert Darrell II Other 585.153.7178noZENT [employer] Other 10-05-2022 09:30-0400Body .8 cmRobert Darrell II Other [facility] Other 10-05-2022 09:30-0400Body mass index (BMI) [Ratio] 27.83 kg/l1Pzqeak Bedrock II Other [facility] Other 10-05-2022 09:30-0400Body rymnbe25 kgRobert Darrell II Other [facility] Other 10-02-2022 14:50-0400Body ihxbgm220.8 cmDO Gama Mast Work Phone: [phone]10-02-2022 14:50-0400 Body jtthbsduexs01 [degF]DO Gama Mast Work Phone: [phone] [place], [place] [address]10-02-2022 14:50-0400 Body rzommm03.37 kgDO Gama Mast Work Phone: [phone])206-[facility]10-02-2022 14:50-0400 Diastolic blood nydyoahn04 mm[Hg]DO Gama Mast Work Phone: [phone])150[facility]02[facility]2022 14:50-0400 Heart rate96 /minDO Gama Mast Work Phone: [phone]-[facility]10-02-2022 14:50-0400 Respiratory rate20 /minDO Gama Mast Work Phone: [phone])987-[facility]10-02-2022 14:50-0400 SaO2% (BldA) [Mass fraction]97 %DO Gama Mast Work Phone: [phone])267-[facility]10-02-2022 14:50-0400 Systolic blood mm[Hg]DO Gama Mast Work Phone: [facility]09-01-2022 16:15-0400 Body slcoff813.8 cmEric Mast Other [employer] Other 09-01-2022 16:15-0400Body mass index (BMI) [Ratio] 27.83 kg/m2Eric Mast Other [employer] Other 09-01-2022 16:15-0400Body bmonsfiwxcd31.3 [degF]Gama Mast Other [employer] Other 09-01-2022 16:15-0400Body kgEric Mast Other [employer] Other 09-01-2022 16:15-0400Diastolic blood kzdasqkv32 mm[Hg] Gama Mast Other [employer] Other 09-01-2022 16:15-0400Respiratory rate18 /minEric Mast Other [employer] Other 09-01-2022 16:15-2921OeR6% (BldA) [Mass fraction]98 % Gama Mast Other [employer] Other 09-01-2022 16:15-0400Systolic blood qmgepeze084 mm[Hg] Gama Mast Other [employer] Other 06-22-2022 15:45-0400Body .8 cmEric Mast Other [employer] Other 06-22-2022 15:45-0400Body mass index (BMI) [Ratio] 27.26 kg/m2Eric Mast Other [employer] Other 06-22-2022 15:45-0400Body hlmnyf99.18 kgEric Mast Other [employer] Other 06-22-2022 15:45-0400Diastolic blood wcilbpju50 mm[Hg] Gama Mast Other [employer] Other 06-22-2022 15:45-0400Respiratory rate18 /minEric Mast Other [employer] Other 06-22-2022 15:45-5506RwU1% (BldA) [Mass fraction]98 % Gama Mast Other [employer] Other 06-22-2022 15:45-0400Systolic blood bcvuttbn608 mm[Hg] Gama Mast Other [employer] Other 05-26-2022 16:45-0400Body .8 cmEric Mast Other [employer] Other 05-26-2022 16:45-0400Body mass index (BMI) [Ratio]27.4 kg/m2Eric Mast Other [employer] Other 05-26-2022 16:45-0400Body coomum19.64 kgEric Mast Other [employer] Other 05-26-2022 16:45-0400Diastolic blood oovwxtyc72 mm[Hg] Gama Mast Other [employer] Other 05-26-2022 16:45-0400Respiratory rate18 /minEric Mast Other [employer] Other 05-26-2022 16:45-3577VtC2% (BldA) [Mass fraction]99 % Gama Mast Other [employer] Other 05-26-2022 16:45-0400Systolic blood zpdqjogg517 mm[Hg] Gama Mast Other [employer] Other 10-20-2021 15:45-0400Body juogqx903.8 cmEric Mast Other [employer] Other 10-20-2021 15:45-0400Body mass index (BMI) [Ratio] 29.15 kg/m2Eric Mast Other [employer] Other 10-20-2021 15:45-0400Body myhvntekdvo88 [degF]Gama Mast Other [employer] Other 10-20-2021 15:45-0400Body .17 kgEric Mast Other [employer] Other 10-20-2021 15:45-0400Diastolic blood kmhtkorj30 mm[Hg] Gama Mast Other [employer] Other 10-20-2021 15:45-0400Respiratory rate18 /minEric Mast Other [employer] Other 10-20-2021 15:45-1313PgB6% (BldA) [Mass fraction]96 % Gama Mast Other [employer] Other 10-20-2021 15:45-1310Systolic blood gihwwfhw813 mm[Hg] Gama Mast Other [employer] Other Encounters Encounter DateEncounter TypeCare ProviderFacilityStart: 02-13-2025 End: 66-19-7158dskuqtbfsoFIZZ M SMITHNot AvailableStart: 10-08-2024 End: 65-57-5140wwgfgdyatnYWWS MCKRAY [facility]: 10-08[facility]2024 End: 18-99-5876Hcdwxcuuli hospital visit by physicianGilberto Carrillo Tomy Work Phone: ST[employer] ORComment on above:Post-op pain (Primary Dx) Start: 2024 End: 40-97-6669qssfwuqwawHqxd Mast DO Work Phone: [facility] Work Phone: Start: 2024 End: 45-08-2532Ypcvkxa encounter procedureEric Mast DO Work Phone: [facility] Work Phone: Start: 09-07-2024 End: 28-32-2053ifujvvmwdsUGDD MCKRAY [facility]: 09-07-2024 End: 60-26-6296Ymjrxxrbjb hospital visit by physicianSta Phone PatT[place] Pre- Admit TestingStart: 07-20-2024 End: 99-45-8690nspvagyqisRaft Mast DO Work Phone: [facility] Work Phone: Start: 07-20-2024 End: 18-98-3700Jerdnzm encounter procedureEric Mast DO Work Phone: [facility] Work Phone: Start: 06-25-2024 End: 98-38-5335qhpudyetrzVwbf Mast DO Work Phone: [facility] Work Phone: Start: 06-25-2024 End: 55-33-6982Fesdlpv encounter procedureEric Mast DO Work Phone: [facility] Work Phone: Start: 06-22-2024 End: 24-81-2044ovyhsceqdlCfoj Mast DO Work Phone: [facility] Work Phone: Start: 06-22-2024 End: 34-31-3920Nfehfgl encounter procedureEric Mast DO Work Phone: [facility] Work Phone: Start: 17-55-5372Wqc-patient / Non-visitEric Mast DO Work Phone: [facility] Work Phone: Start: 06-19-2024 End: 57-66-7772Xdpmegwyj department patient visitEric Mast DO Work Phone: [facility] Work Phone: Start: 05-31-2024 End: 21-80-9534gizeamqdqmOBCENIU A VISCINot AvailableStart: 05-07-2024 End: 39-81-6645Zpkacuy encounter procedureEric Mast DO Work Phone: [facility] [address] Work Phone: Start: 05-07-2024 End: 30-34-2826sgwhmvkgrzNcvd Mast DO Work Phone: [facility] Work Phone: Start: 04-27-2024 End: 61-90-0461Xbqdwvzye encounterRichard A Visci DO Work Phone: [facility] OBStart: 03-30-2024 End: 64-03-8915hujdgnudcyLfnfup Tomy Ramírez IIFacility:[facility] Hospitaltart: 03-30-2024 End: 23-60-3557Sbvrmty encounter procedureEric Mast DO Work Phone: [facility] Work Phone: Start: 03-12-2024 End: 01-89-6432Hsrwwsy encounter procedureEric Mast DO Work Phone: [facility] Demetrius Work Phone: Start: 02-27-2024 End: 16-76-9898Dsngwoh encounter Deisy Cordoba MD Work Phone: noms GENSComment on above:Colon cancer screening Start: 02-27-2024 End: 35-30-9617jxwrxrzxaqRPEOVD VARGAS VNot AvailableStart: 01-18-2024 End: 08-41-5550Hotqmdg encounter statusRichard A Visci DO Work Phone: noms HealthcareStart: 01-18-2024 End: 32-07-0865Kqcuezfr preventive med est patient 40-64yrsRichard A Visci DO Work Phone: [facility] OBComment on above:Encounter for gynecological examination with abnormal finding (Primary Dx); LGSIL Pap smear of vagina; Special screening for malignant neoplasms, vagina; Encounter for screening mammogram for malignant neoplasm of breast; Colon cancer screening; Atypical squamous cell changes of undetermined significance (ASCUS) on vaginal cytologyStart: 01-06-2024 End: 04-31-2985agnaypjtexKbnchugklOhio Valley Hospital Work Phone: Start: 01-06-2024 End: 89-94-9953Kcmbrjl encounter procedureHernan Physician GroupLawrence [facility] Hospital Demetrius Work Phone: Start: 07-25-2023 End: 51-64-1242vocfarazadRjcygrvxwOhio Valley Hospital Work Phone: Start: 07-25-2023 End: 42-20-1069Bciysus encounter procedureUn[facility] Health [facility] Demetrius Work Phone: Start: 06-20-2023 End: 20-49-4914Tyjmvgm encounter procedureUnc Health [facility] Dem[facility]us Work Phone: Start: 05-16-2023 End: 09-11-8519heliexpkahExve Mast Other [employer] Other Start: 56-48-4776Ogsesolxf encounterEric MastFPG Family Medicine SanduskyStart: 04-14-2023 End: 02-21-8412yuctocjqofMghc Mast Other [employer] Other Start: 57-04-0183Feoxim outpatient visit 25 minutes Gama MastFPG [facility] [place]kyStart: 04-01-2023 End: 42-94-6133jwhmrqugmlTeox Mast Other [employer] Other Start: 79-74-0518Baqkduexy encounterEric MastFPG [facility] [place]kyStart: 03-28-2023 End: 97-68-7032oyxvnqbphpPnhm Mast Other [employer] Other Start: 66-20-0959Jwjlbtpcf encounterEric MastFPG [facility] [place]kyStart: 03-04-2023 End: 76-49-8612gtabgabzdaHnoh Mast Other [employer] Other Start: 95-27-3418Xkffldbnp encounterEric MastFPG [facility] [place]kyStart: 75-95-8648Jsmcin outpatient visit 25 minutesEric MastFPG [facility] [place]kyStart: 03-03-2023 End: 93-39-9103wqozzkkqhcLH Gama Mast Work Phone: [employer] Other Start: 03-03-2023 End: 20-21-6475Gcqhktb encounter procedureDO Gama Mast Work Phone: [facility] CenterStart: 01-05-2023 End: 38-50-7414pdfzntndvhCefsriuo Kaple Other [employer] Other Start: 79-93-2943Hgurovxlv encounterJennifer KapleFPG [facility] SandtrentonyStart: 08-09-2022 End: 13-65-7499bvbcguyeylKftg Mast Other [employer] Other Start: 71-98-6846Dbcqgtmzs encounterEric MastFPG [facility] SandtrentonyStart: 58-52-5646Lbjgqv outpatient visit 25 minutes Fermin Darrell CHAMORROLos [facility] OrthopedicsStart: 04-28-2022 End: 69-44-2084juoblycrtgNC Gama Mast Work Phone: [facility] Work Phone: Start: 04-28-2022 End: 62-84-5901Dwzgxbq encounter procedureDO Gama Mast Work Phone: [facility] Start: 04-06-2022 End: 20-86-4825uurjazjpizQure Mast Other [employer] Other Start: 43-59-0541Nqtfxjbnb for other preprocedural examinationEric MastFPG [facility] SandtrentonyStart: 80-47-0382Znmjui outpatient visit 15 minutesEric MastFPG [facility] SandtrentonyStart: 17-19-1917Kampwe outpatient visit 25 minutesRobert Bedrock IIFPG [facility] OrthopedicsStart: 03-17-2022 End: 70-57-3591starwnhkkyIM Gama Mast Work Phone: [employer] Other Start: 03-17-2022 End: 21-75-6539Oxudjfd encounter procedureDO Gama Mast Work Phone: [facility] Start: 02-22-2022 End: 41-67-0403qgwhdykpicQJ Gama Mast Work Phone: [facility] Work Phone: Start: 02-22-2022 End: 37-65-7552Ysviwqtdxa RecurringDO Gama Mast Work Phone: [facility]-Physical Therapy [place] CreekStart: 52-50-3629Tvxyfb outpatient visit 25 minutesRobert Bedrock IIFPG [facility] OrthopedicsStart: 02-17-2022 End: 79-05-4629ayidhwzqqoZW Gama Mast Work Phone: [facility] Work Phone: Start: 02-17-2022 End: 39-78-7980Douwvpm encounter procedureDO Gama Mast Work Phone: [facility] Start: 50-32-1232Sobiuq outpatient visit 25 minutesRobert Bedrock IIFPG [facility] OrthopedicsStart: 02-04-2022 End: 99-48-6186smaasgpbfpBI Gama Mast Work Phone: [employer] Other Start: 02-04-2022 End: 53-57-3691Lhvmcnf encounter procedureDO Gama Mast Work Phone: [facility] Start: 01-20-2022 End: 12-11-2813qvwgimaoqzIpdpam Bedrock II Other [employer] Other Start: 39-53-8281Vwvuwt outpatient new 45 minutes Fermin Ramírez IIFPG [facility] OrthopedicsStart: 01-20-2022 End: 52-96-6814Buiwgrh encounter procedureDO Gama Mast Work Phone: [facility] Start: 01-17-2022 End: 08-25-9086Uzecitnld department patient visitDO Gama Mast Work Phone: [facility]-Emergency RoomStart: 01-06-2022 End: 75-10-9273fkftshsnikFyywubrw A BrownFacility:FTMCStart: 01-06-2022 End: 11-53-1001Elf Drop offNicholas A Brown [facility] Start: 12-25-2021 End: 07-54-0154Tkaerck encounter procedureDO Gama Mast Work Phone: [facility]-Electrodiagnostics Start: 12-17-2021 End: 54-02-4103blqycsindeXymo Mast Other [employer] Other Start: 46-76-4747Lgowliruf for other preprocedural examinationEric MastFPG [facility] [place]kyStart: 90-90-6627Btpcjz outpatient visit 15 minutesEric MastFPG [facility] [place]kyStart: 10-07-2021 End: 80-72-5795jsziwidyytNbor Mast Other [employer] Other Start: 82-73-1372Nklofri encounter procedureEric Mast FPG [facility] [place]kyStart: 09-30-2021 End: 04-98-7330hcbloxozijMwqq Mast Other [employer] Other Start: 69-49-4882Aucikqzbw encounterEric MastFPG [facility] [place]kyStart: 09-10-2021 End: 68-99-9295feqeblvbqoKxoy Mast Other [facility] Other Start: 62-11-1788Eyhtku outpatient visit 15 minutes Gama MastFPG [facility] [place]kyStart: 06-22-2021 End: 24-02-5414xpedmtrserPkne Mast Other [facility] [employer] Other Start: 20-67-7786Vwzgsyllr encounterEric MastFPG [facility] [place]kyStart: 80-93-0361isnwvbsxrlHHCRDYD B [place] [facility]tart: 84-35-8477Pnkfja outpatient visit 15 minutes Gama MastFPG [facility] [place]kyStart: 84-29-5999Llciwnk encounter procedureNimaverick VyasDcudkoxeZR-Rcczjnoxtviikp-Gntlddikn Work Phone: Start: 29-54-8694Eoxqkpn encounter procedureNimaverick VyasXaseitfjEJ-Whkwwcqlwhgnsg-Qtddpzzcw Work Phone: Start: 68-12-4296Zflzgrw encounter procedureNimaverick VysaDqpdbfrdJP-Amksivzshgrild-Ukccyglee Work Phone: Start: 07-08-2020 End: 04-00-9829Gwfvymz encounter procedureSycamore Shoals Hospital, Elizabethtontart: 07-01-2020 End: 28-41-4173Nthcjgsnim hospital visit by physicianReno Morris Rm 1[facility] Pre- Admission TestingComment on above:No ShowStart: 01-92-0689Auyjova encounter procedureNimaverick VyasDfrerkjiZL-Brhpjvloltpmwk-Flvukhrsl Work Phone: Start: 79-36-3937Tacmgge encounter procedureNimaverick VyasFcejlwryMF-Ixumwgxrmexzys-Ndpzpeutw Work Phone: Procedures DateProcedureProcedure DetailPerforming ClinicianStart: 03-95-4918Zjsskxknock during operationKyle Viki Carrillo DPM Work Phone: Start: 42-37-8099Xbbyq metabolic panel calcium total Ndal Tomy Botello MD Work Phone: Start: 80-09-9227Hexct X-ray of left forearmEric Mast DO Work Phone: Start: 31-27-5888HF of left footEric Mast DO Work Phone: Start: 46-87-7820FyaastkddgcHdvchaa Visci DO Work Phone: start: 95-92-5541V-ray of left footEric Mast DO Work Phone: Start: 05-38-6771Ermdofvrkdk observation [Identifier] in Cervix by Cyto stainRichard Visci DO Work Phone: start: 19-15-4758TgenhsrejmrSwteyii Visci DO Work Phone: start: 55-80-5880M-ray of right ankleDO Gama Mast Work Phone: Start: 91-64-1059R-ray of right ankleDO Gama Mast Work Phone: Start: 83-55-7901M-ray of right ankleDO Gama Mast Work Phone: Start: 42-11-1927V-ray of right ankleDO Gama Mast Work Phone: Start: 01-08-3534Opxwm X-ray of right tibia and right fibulaDO Gama Mast Work Phone: Start: 93-87-0292U-ray of right ankleDO Gama Mast Work Phone: Start: 69-01-9940G-ray of right ankleDO Gama Mast Work Phone: Start: 04-39-2388Iewdc chest X-rayDO Gama Mast Work Phone: Start: 55-03-6132Qgchbq-up visitStart: 07-09-2020 Follow-up visitStart: 58-01-7327Jnioqm-up visitStart: 09-07-2069Cihmna-up visit Plan of Treatment DateCare ActivityDetailAuthorStart: 53-27-0612Xpftkxcwo for malignant neoplasm of colonNOMS HealthcareStart: 26-38-9017Iiuxktyux for malignant neoplasm of cervixNOMS HealthcareStart: 20-36-0904Inqfhvksp for malignant neoplasm of breast Breast cancer screenBon [facility]ighStart: 31-68-0327Getwhmfwc for malignant neoplasm of cervixPap SmearNOMS HealthcareStart: 59-55-9278Evzcvxqdc vaccinationFlu vaccine (Season Ended)[facility]: 10-08-2024 End: 95-66-9894Uryudnvrl to same day surgery ypptbm3010/08/2024 12:30 PM EDT - 10/08/2024 4:32 PM EDT Surgery [facility] OR [address] [place] [address] Gilberto Carrillo, DPM [address] [place] [address] DOUBLE OSTEOTOMY FIRST RAY, RECONSTRUCTION SECOND METATARSAL PHALANEAL JOINT WITH 3D IMPLANT, SECOND MET OSTEOTOMY, GASTROC REC, HAMMERTOE CORRECTION SECOND DIGIT, FLEXOR TENOTOMY, PARTIAL EXCISION SECOND MET, WITH FAT GRAFT HARVESTINGSTAZ ORComment on above: DOUBLE OSTEOTOMY FIRST RAY, RECONSTRUCTION SECOND METATARSAL PHALANEAL JOINT WITH 3D IMPLANT, SECOND MET OSTEOTOMY, GASTROC REC, HAMMERTOE CORRECTION SECOND DIGIT, FLEXOR TENOTOMY, PARTIAL EXCISION SECOND MET, WITH FAT GRAFT HARVESTING Start: 10-08-2024 End: 85-69-3384Cyure hallux valgus w/sesmdc w/2 osteotFOOT BUNIONECTOMY 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, left Hammer toe of left foot Osteonecrosis of left foot due to previous trauma (HCC) 10/08/2024 12:30 PM EDT [facility]: 10-08-2024 End: 53-10-8902Yfpioxlhyfcnv recessionGASTROCNEMIUS RECESSION 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, left Hammer toe of left foot Osteonecrosis of left foot due to previous trauma ([facility]) 10/08/2024 12:30 PM EDT [facility]: [facility] End: 25-90-1628Nhnlhq w/wo lngth shrt/corrj metar xcp 1st eaFOOT OSTEOTOMY 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, left Hammer toe of left footOsteonecrosis of left foot due to previous trauma ([facility]) 10/08/2024 12:30 PM EDCorey Hospitaltart: 10-08-2024 End: 40-95-6789Eejp exc b1 tarsal/metar b1 xcp talus/calcaneusFOOT BONE EXCISION 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, left Hammer toe of left foot Osteonecrosis of left foot due to previous trauma ([facility]) 10/08/2024 12:30 PM EDCorey Hospitaltart: 90-41-1999Nawnrdwhvp hospital visit by lqlpnxyts58/23/2025 12:30 PM EDT Hospital Encounter [facility] [address] [place] [address] Gilberto Carrillo, DPM [address] [facility] [address] [place] [id number] SHE ORStart: 10-08-2024 End: 34-47-1386Gk open tendon flexor toe 1 tendon spxTOE HAMMER REPAIR 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 [address] [place] [id number] Ander Cordoba MD [address] [facility] [address] [place] [address] [facility]ITALtart: 16-46-4312Juwixllhr for malignant neoplasm of breastMammogramBoone Hospital CenterStart: 01-18-2024 End: 54-13-3573MIR Breast - bilateral screeningBilateral screening mammogram with tomosynthesis Imaging Routine Encounter for screening mammogram for malignant neoplasm of breast Expected: 01/18/2024, Expires: 03/19/2025NOMN HealthcareComment on above:Expected: 01/18/2024, Expires: 03/19/2025Start: 35-21-4274LANVQ-19 Vaccine ( season)COVID-19 Vaccine ( season)[facility]: 96-02-3901HFHIP-19 Vaccine ( season)COVID-19 Vaccine ( season)[facility]: 29-45-6665Nkzentywh vaccinationInfluenza Vaccine (#1)[facility] CenterStart: 43-86-4067Cquyzyvcypjg 50+ years Vaccine (1 of 1 - PCV)Pneumococcal 50+ years Vaccine (1 of 1 - PCV)[facility]: 92-89-3799Uoxpqryo vaccine (1 of 2)Shingles vaccine (1 of 2)[facility]: 07-08-2020 End: 26-90-1053Epfgpgfc EncounterMLOZ ORComment on above:SEPTOPLASTY OUTFRACTURE INFERIOR TURBINATES COBLATION TURBINATES 1 HOUR (PAT AT [facility])Start: 07-07-2020 End: 84-49-3156Ccebts Visit07/07/2020 Office Visit Family Medicine Ginny James, [employer]ACE[employer] MAKER - DEICER INSPECTOR PNEUMATIC [address] [facility] [address] [place] [address] [phone] [facility] CareStart: 88-92-2877Iqlvbybla vaccinationFlu vaccine (#1)[facility] X BODY [facility] Phone: start: 94-66-7105Ifkvmbgfe for malignant neoplasm of colonHenrico Doctors' Hospital—Hen[facility] Campusart: 93-64-9478Izvui panelHenrico Doctors' Hospital—Henrico Campusart: 21-28-0090Zpqhhyns screenDiabetes [facility] Start: 90-48-9319Ntxeezpeu for malignant neoplasm of cervixCervical cancer screenSt. Francis HospitalChongqing [employer] Phone: start: 13-28-3929UPzQ/Tdap/Td vaccine (1 - Tdap) DTaP/Tdap/Td vaccine (1 - Tdap)[facility] HospitalStart: 09-16-1990 Hepatitis B vaccine (1 of 3 - 19+ 3-dose series)Hepatitis B vaccine (1 of 3 - 19+ 3-dose series)[facility]art: 31-33-7898Zxfxizkay C screening Hepatitis C [facility] Hospitalart: 56-91-1237AST screeningHIV screenHenrico Doctors' Hospital—Henrico Campusart: 86-44-0916Uitmyuhbrn MonitoringDepression MonitoringBon [facility]ighStart: 10-95-6217Gufoutgfr C screening Hepatitis C screenPromedica Flower Hospital [employer] Phone: start: 96-90-8002Evrcffrdg for malignant neoplasm of colonNOMS Healthcare End: 44-56-2543Vjshx glucose - POCTBlood glucose - POCT Point of Care Testing Routine One Time for 1 Occurrences starting 10/09/2024 until 5Bon [facility] System West Campusment on above:One Time for 1 Occurrences starting 10/09/2024 until 10/09/2024 End: 70-45-3322IGMBBXGW PACU OXYGEN THERAPY PROTOCOLInitiate PACU Oxygen Therapy Protocol Respiratory Care Routine Continuous until discontinued starting 10/08/2024 [employer] Work Phone: Comment on above:Continuous until discontinued starting 10/08/2024Oxygen therapy [Minimum Data Set]Initiate Oxygen Therapy Protocol Respiratory Care Routine As Needed until discontinued starting 09/17on [employer] Work Phone: Comment on above:As Needed until discontinued starting 10/08/2024Patient EducationK[facility] Work Phone: Patient referralKettering Health [facility] Ctr Work Phone: End: 70-09-0458Qsgfyoysv, urinePregnancy, urine Lab Routine Tomorrow AM for 1 Occurrences starting 10/09/2024 until 10/09/2024on IptiviaComment on above:Tomorrow AM for 1 Occurrences starting 10/09/2024 until 10/09/2024 SENDOUT TEST MISCELLANEOUS LABCORPSENDOUT TEST MISCELLANEOUS [facility] Lab Routine LGSIL Pap smear of vagina Special screening for malignant neoplasms, vagina Atypical squamous cell changes of undetermined significance (ASCUS) on vaginal cytology Ordered: 01/18/2024[facility] [employer] Work Phone: comment on above:Ordered: 01/18/2024XR Ankle - right GE 3 [facility] End: 40-80-7854BI Foot - left 3 ViewsDickenson Community Hospital [employer] X BODYComment on above: Once for 1 Occurrences starting 10/08/2024 until 10/08/2024 Immunizations Immunization DateImmunizationNotesCare MrwbdwuhCinfjzia13-44-8928fvtkcijgx, seasonal, injectable, preservative freeEric Mast DO Work Phone: [facility]11-02-2022influenza virus vaccine, unspecified formulationRichard Visci DO Work Phone: [facility] [id number]-[id number] Vaccine Pfizer - Documentation Purposes OnlyEric Mast Other [facility]03-25-2021COVID-19, mRNA, LNP-S, PF, 30 mcg/0.3 [facility] ShawComment on above:Reason for Medication: [id number] Vaccine Pfizer - Documentation Purposes OnlyEric Mast Other [facility]02-25-2021COVID-19, mRNA, LNP-S, PF, 30 mcg/0.3 mL [facility] ShawComment on above:Reason for Medication: Prophylaxis Payers DatePayer CategoryPayerPolicy [id number] Private Health [id number] 1..[id number] 2.0.1.071429.3.57[id number] 2.840.1.021190.3.57[id number] 2.16.840.1.884927.3.57[id number] 2.16.840.1.644327.3.57[id number] 2.840.1.843237.3.57[id number] 2.16.840.1.342694.3.57[id number] 2.16840.1.344127.3.57[id number] 2.840.1.718[id number] County [facility] [id number] 2.16.840.1.8[id number] 2..840.1.245970.3.579.2.531 [id number] 2.0.1.475305.3.579.2.531 Social History DateTypeDetailFacilityTobacco smoking status NHISUnknown if ever smokedAllocadia Phone: start: [id number] Assigned At BirthNot on [employer] Phone: start: 05-09-2023 End: 49-12-9936Yqc Assigned At [facility] boolino Other Start: 07-07-2020 End: 81-36-6964Tadfkts smoking status NHISNever smoked tobacco (finding) [facility]: 08-77-5562Hsg Assigned At [facility] CenterTobacco smoking statusNo Smoking Status Entered [facility] CenterStart: 07-07-2020 End: 13-67-2062Hssanax use and exposureSmokeless tobacco non-userNOMS Healthcare Start: 01-18-2024 End: 40-40-7910Hkfyepszk beverage intakeCurrent drinker of alcohol (finding)[facility] HealthcareStart: 05-09-2023 End: 35-18-0431Cghsndy of Social functionNOMS HealthcareHow often to you have a drink containing alcohol?Monthly or lessNOMS HealthcareHow many standard drinks containing alcohol do you have on a typical day?1 or 2NOMS HealthcareHow often do you have 6 or more drinks on 1 occasion?NeverS[facility] HealthcareStart: 11-11-2022 Alcohol Commentcaffeine intake: 1-2 cups per dayBoone Hospital CenterStart: 06-24-2020 End: 64-26-9372ZkpEaywwr (finding)[facility] CenterPatient Health Questionnaire 9 item (PHQ-9) total score [Reported]0Bon Iptivia(I/We) worried whether (my/our) food would run out before (I/we) got money to buy more.Never trueBon VisTracks [facility] HospitalStart: 56-06-2155Vrpxeni Comment sociallyBon IptiviaNEGATED: Highlighted row-- HZ-Pyglhkmmakcccz-Doddqnvzj Work Phone: NEGATED: Highlighted rowStart: NINFHistory of tobacco usePassive smokerBoone Hospital Center Medical Equipment Procedure CodeEquipment CodeEquipment Original TextEquipment IdentifierDates Screw Bne L24mm Dia3mm Ti Ally Brice Full Thrd St Hdlss - [id number] Start: 06-85-7705Zurlw Bone Matric V92-Fc 2.5cc - [id number] Start: 44-05-9144Aomybb Ao 2nd Metatarsal Size:[id number]: 10-08-2024 Screw Bne L30mm Od2.5mm Hdlss - [id number]: 10-08-2024K Wire Fix Dia0.90mm Nthrd - [id number]: 40-59-5547Wrekamf on above: Description: SECOND TOE Functional Status DateAssessmentResultFacilityNEGATED: Highlighted rowFunctional performance Functional status health issues are not documented [facility] Work Phone: Mental Status DateAssessmentResultFacilityNEGATED: Highlighted rowCognitive function [Interpretation]Cognitive status health issues are not documented Disease [facility] Work Phone: Clinical Notes 10-16-2017 to 10-08-2024 Note Date & CutwJywrDuetqadv29-92-8560 Hospital Discharge instructions* Discharge Instructions* Alexandra Garcia, GERMAN - 10/08/2024 4:46 PM EDT Podiatric Post Operative Instructions: You have had a surgical procedure on your left foot. Fluids and Diet: Begin with clear liquids, broth, dry toast, and crackers. If not nauseated then resume your regular pre-operative diet when you are ready Medications: Take your prescriptions as directed You are receiving new prescriptions for Percocet, tizanidine If your pain is not severe then you may take the non-prescription medication that you normally takefor aches and pains You may resume your regularly scheduled medications (unless otherwise directed) If any side effects or adverse reactions occur, discontinue the medication and contact your doctor. Review the patient drug information that is provided before you take any medication Ambulation and Activity: You are advised to go directly home from the hospital Use crutches as needed You may not put weight on the operated foot. Your foot is protected in a splint. Please use crutches to assist in transferring yourself. Avoid stairs if possible. Do not lift or move heavy objects Do not drive until cleared by your physician Bandage and Wound Care Instructions: Keep bandage clean and dry Do not shower or bathe the operative extremity Do not remove the bandage (unless otherwise directed) Do not attempt to put anything between the cast or dressing and your skin, some itching is normal. Ice and Elevation: Elevate operative extremity as much as possible to reduce swelling and discomfort. Elevate with 2 pillows at or above the level of the heart for the first 72 hours. Ice: Apply Hospital dispensed insulated ice bag over the bandage 20 minutes of every hour while awake for the first 72 hours. You may behind the knee as well. Special Instructions: Call your doctor immediately if you develop any of the following. Fever over 100 degrees by mouth - take your temperature daily until your first follow up visit. Pain not relieved by medication ordered Swelling, increased redness, warmth, or hardness around operative area. Numb, tingling or cold toes. Toe(s) become white or bluish Bandage becomes wet, soiled, or blood soaked (small amount of bleeding may be normal) Increased or progressive drainage from surgical area. Follow up instructions: You will need to follow up with Dr. Viki Carrillo in the next 5 to 7 days. Call when you get home to make an appointment. Call your Awning Finisher office if you have any questions or concerns. documented in this encounterBon [facility]03-[facility] Evaluation note* Diagnosis Onset Date Resolution Status Admit Date Dog bite inactiveMarch 2024 11:10amDog biteinactiveMarch 2024 11:24am [facility] Work Phone: 1(301) 219-224603-07-2025 Evaluation note* Diagnosis Onset Date Resolution Status Admit Date Dog bite inactiveMarch 2024 11:10amDog biteinactiveMarch 2024 11:24amBMI 25.0-25.9,adultacuteApril 2024 8:42am [facility] Work Phone: 1(272) 255-164603-04-2025 Hospital Discharge instructions Additional Instructions Wound should be reassessed by your primary care provider in the next 2 to 3 days and at this time there are loosely approximated stitches should be removed. Begin taking antibiotics as prescribed. Is important to fully submerge the affected area and recommend keeping the area clean and dry for the next 48 to 72 hours. Wound Care Patient Instructions GOALS OF HOME CARE: -Reduce pain, swelling, reduce the risk of infection, and help wounds in the healing process. -If injury to arms and/or legs: Elevate the injured extremity higher than the level of the heart. -Drink plenty of fluids and eat nutritious meals high in protein. -Dress with a non-stick/non-adherent layer, wrapped with gauze dressing, and secured. Exception being fingers and face. -This should be done 2 times a day until follow up, face shaw and fingers do not require a dressing and can be left open to air. GOALS OF HOME CARE: -Reduce pain, swelling, reduce the risk of infection, and help wounds in the healing process. -If injury to arms and/or legs: Elevate the injured extremity higher than the level of the heart. -Drink plenty of fluids and eat nutritious meals high in protein. -Yellow drainage is normal: Green or foul-smelling drainage should be evaluated by a primary care provider. SIGNS OF INFECTION - Monitor the wound for signs of infection, including increased redness, swelling, warmth, pus, or a foul odor. - If you develop a fever, increased pain, or if the wound appears to be getting worse rather than better, contract your healthcare provider immediately. It is very important that you follow up with your primary care provider in the next 1-2 days unless instructed to do otherwise. If you do not have a primary care provider, you can contact the [facility] and ask about being established for primary care services. If you require specialist follow up, such as with an orthopedic physician, curriculum coach, urologist, or other medical specialty, you should contact the specialty clinic as soon as possible to schedule a follow up appointment. If you are established with a specialist, you can contact your preferred physician for follow up. If you are not already established with the specialist you need, you may have contact information provided to you with these discharge instructions. If you are being prescribed medications, take exactly as prescribed. Antibiotics, if prescribed, should be taken until the entire course is completed. You should not have left over antibiotics. Continue to take any previously prescribed home medications unless instructed otherwise. Drinking plenty of water and rest is encouraged for improved symptom management. If you are experiencing fever or mild to moderate pain, you should first take Tylenol or ibuprofen available tper-zyh-yvaextv. Medications, if prescribed to treat pain from the emergency department, are intended to provide relief for severe pain that is not relieved by other methods of pain relief, you should use these medications cautiously as many are known to cause sedation/sleepiness, increased risk for falls, and other effects such as constipation. If your symptoms worsen please return to the ED or if you have any other concernsMansfield Hospital Work Phone: 1(469) 890-915901-20-2025 Radiology Diagnostic study [facility] [place] [address] [place], [place] [address] CT Scan Report Signed Patient: Kristan Levy MR#: [id number] : 1970 Acct:[id number] Age/Sex: 53 / F ADM Date: 5 Loc: [facility] Room: Type: [facility] Attending Dr: Raoul Burt DPM MS Copies to: Raoul Burt DPM, MS~ Ordering Provider: Raoul Burt DPM, MS Date of Service: 05/07/24 CT/CT foot LT wo con: M87.275 CT left foot without contrast TECHNIQUE: The CT exam was performed using one or more the following dose reduction techniques: Automated exposure control, adjustment of the MA and/or Kvaccording to patient size, or use of the iterative reconstruction technique. COMPARISON: Plain film imaging 03/30/2024 HISTORY: AVN involving the second metatarsal head Joint space narrowing of the second metatarsal phalangeal articulation. Subarticular cystic changes. flattening and widening of the subchondral bone. No acute displaced fracture. Unremarkable soft tissues. Adequate alignment. Extensive erosive degenerative changes of the 2nd-5th proximal interphalangeal joints with subchondral cystic change. 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 No acute bony findings. Additional erosive degenerative changes of the second fifth proximal interphalangeal joints. Impression dictated by: Pal Alcazar M.D.05/07/2024 9:58 AM Dictation Location: [place] [address] Transcribed By: [facility] 05/07/2458 Dictated By: Pal Alcazar DO 05/07/24 0953 Signed By: 05/07/24 0958 [facility]01-10-2025 Telephone encounter Note* Telephone Encounter - Milind Blanc - 04/27/2024 9:34 AM EST Letter sent04/27/24 due to PASCUAL being out of the office 07/23/24 & pt needing to r/s. [facility] [id number] Miscellaneous Notes* Telephone Encounter - Milind Blanc - 04/27/2024 9:34 AM EST Letter sent04/27/24 due to PASCUAL being out of the office 07/23/24 & pt needing to r/s. documented in this encounterBoone Hospital CenterOptjjyyyfc15-98-2064 Evaluation note* Diagnosis Onset Date Resolution Status Admit Date Left foot pain acuteDecember 2023 8:29am [facility] Work Phone: 1(615) 462-449612-13-2024 Evaluation note* Diagnosis Onset Date Resolution Status Admit Date Left foot pain acuteDecember 2023 8:29amDog biteacuteMarch 2024 11:10am [facility] Work Phone: 1(441) 511-582411-25-2024 Evaluation note* Diagnosis Onset Date Resolution Status Admit Date Anxiety and depression acuteMarch 12, 2024 8:36amPTSD (post-traumatic stress disorder)acute March 12, 2024 8:36amLeft foot painacuteDecember 2023 8:29am [facility] Work Phone: 1(432) 762-181111-11-2024 History of Present illness Narrative* Ander Navarro MD - 02/27/2024 9:15 AM EST Images from the original note were not included. Kristan Levy 1970 Kristan Levy is a 53 y.o. female presents with chief complaint of Consult (colonoscopy) HPI: Ms. Kristan Levy is a 53 year old female presenting today for a preoperative evaluation for a screening colonoscopy. The patient reports that this is her first screening colonoscopy. She reports that she does have a family history of malignancy (prostate cancer in her uncle). She has also had abnormal pap smears previously but was never diagnosed with cervical cancer. She reports that she has chronic constipationand menopausal symptoms but is otherwise asymptomatic. She denies nausea, vomiting, distension, diarrhea, blood in her stool or changes in her stool. Her past surgical history includes hysterectomy, a sinus procedure, and a carpal tunnel release. Her reported medication list includes bupropion, venlafaxine, and a multivitamin. She reports that she will have an alcoholic beverage 3 to 4 times a month but denies tobacco and recreational drug use. She has NKDA. SUBJECTIVE: MEDICATIONS: ALLERGIES Current Outpatient Medications Medication Instructions ALPRAZolam (XANAX) 0.5 mg, Every 12 hours buPROPion XL (WELLBUTRIN XL) 300 mg, Every 24 hours multivitamin with minerals (Cerovite) 18-400 mg-mcg tablet tablet 1 tablet, Daily semaglutide (OZEMPIC) 0.5 mg venlafaxine XR (EFFEXOR XR) 150 mg, Daily No Known Allergies PAST MEDICAL HISTORY: SOCIAL HISTORY SURGICAL HISTORY: Past Medical History: Diagnosis Date Anemia Anxiety 2018 loss of son (15 y/o; Heart condition) Difficulty walking Endometriosis Plantar fasciitis Stress fracture Social History Tobacco Use Smoking status: Never Passive exposure: Never Smokeless tobacco: Never Vaping Use Vaping status: Never Used Substance Use Topics Alcohol use: Yes Comment: caffeine intake: 1-2 cups per day Drug use: Never Past Surgical History: Procedure Laterality Date ENDOMETRIAL BIOPSY 2018 Normal FOOT SURGERY GYNECOLOGIC CRYOSURGERY 1998 Conization/ Cryo HYSTERECTOMY 10/18/2017 TLH/BS LAPAROSCOPY ABDOMEN DIAGNOSTIC 2003 for clip removal TUBAL LIGATION Bilateral 2001 US PELVIC COMPLETE 06/2012 VAGINAL DELIVERY child REVIEW OF SYMPTOMS: Review of Systems Constitutional: Positive for hot flashes. Negative for chills, fatigue, fever, night sweats and unexpected weight change. Menopausal symptoms Respiratory: Negative for cough, chest tightness, shortness of breath and wheezing. Cardiovascular: Negative for chest pain and palpitations. Gastrointestinal: Positive for constipation. Negative for abdominal distention, abdominal pain, blood in stool, diarrhea, nausea and vomiting. Genitourinary: Negative for difficulty urinating, dysuria, frequency and urgency. Neurological: Positive for numbness. Negative for dizziness, weakness and light-headedness. From carpal tunnel syndrome OBJECTIVE: Visit Vitals BP 120/80 Ht 5' 9 Wt 174 lb LMP (LMP Unknown) BMI 25.70 kg/m OB Status Hysterectomy Smoking Status Never BSA 1.96 m Physical Exam Constitutional: General: She is not in acute distress. Appearance: Normal appearance. HENT: Head: Atraumatic. Eyes: General: No scleral icterus. Cardiovascular: Rate and Rhythm: Normal rate and regular rhythm. Pulses: Normal pulses. Heart sounds: Normal heart sounds. No murmur heard. Pulmonary: Effort: Pulmonary effort is normal. Breath sounds: Normal breath sounds. Abdominal: General: Abdomen is flat. Bowel sounds are normal. There is no distension. Palpations: Abdomen is soft. Tenderness: There is no abdominal tenderness. Skin: General: Skin is warm and dry. Coloration: Skin is not jaundiced. Neurological: Mental Status: She is alert and oriented to person, place, and time. ASSESSMENT AND PLAN: Assessment/Plan Diagnoses and all orders for this visit: Colon cancer screening - Ambulatory referral to Gastroenterology Plan will be to perform a colonoscopy. The procedure, benefits, risks including risks of bleeding, perforation, incomplete colonoscopy were discussed. If the colonoscopy is normal, next colonoscopy in 10 years. documented in this encounterBoone Hospital CenterKyjeyxvhvr69-56-0026 History of Present illness Narrative* Elizabeht Flowers, - 01/18/2024 11:00 AM EDT Images from the original note were not included. 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 LMP: Hysterectomy Last pap: 05/09/2023 Visit Vitals BP 110/76 Wt 165 lb LMP (LMP Unknown) BMI 23.68 kg/m OB Status Hysterectomy Smoking Status Never BSA 1.92 m History of Present Illness Current Outpatient Medications Medication Sig Dispense Refill ALPRAZolam (Xanax) 0.5 MG tablet Take 0.5 mg by mouth every 12 (twelve) hours. buPROPion XL (Wellbutrin XL) 300 MG 24 hr tablet Take 300 mg by mouth 1 (one) time each day at the same time. multivitamin with minerals (Cerovite) 18-400 mg-mcg tablet tablet Take 1 tablet by mouth in the morning. semaglutide (Ozempic) 2 MG/1.5ML solution pen-injector Inject 0.5 mg under the skin venlafaxine XR (Effexor XR) 150 MG 24 hr capsule Take 150 mg by mouth in the morning. No current facility-administered medications for this visit. No Known Allergies Past Medical History: Diagnosis Date Anemia Anxiety 2018 loss of son (15 y/o; Heart condition) Difficulty walking Endometriosis Plantar fasciitis Stress fracture Past Surgical History: Procedure Laterality Date ENDOMETRIAL BIOPSY 2018 Normal FOOT SURGERY GYNECOLOGIC CRYOSURGERY 1998 Conization/ Cryo HYSTERECTOMY 10/18/2017 TL/BS LAPAROSCOPY ABDOMEN DIAGNOSTIC 2004 for clip removal TUBAL LIGATION Bilateral 2001 US PELVIC COMPLETE 06/2012 VAGINAL DELIVERY child OB History Para Term AB Living 6 5 5 5 SAB IAB Ectopic Multiple Live Births 5 # Outcome Date GA Lbr Swapnil/2nd Weight Sex Type Anes PTL Lv 6 5 Term 4 Term 3 Term 2 Term 1 Term 11 lb Comments: Largest Obstetric Comments Pap 05/09/23- ASCUS ; Pap 11/12/22- ASCUS ; COLPO 06/05/21 - no bx ; pap 06/02/2021 -LSIL ; 12/29/2020- ASCUS ; 05/26/2020- ASCUS ; 04/13/19 COLPO- no bx ; 03/12/19- LSIL ; 06/24/2017-ASCUS,+HPV, Ethplapzah36/17/2018-SCOTT 1 Mammogram 02/15/23- Neg Colonoscopy? TLH/BS 2018 ROS General: Denies fevers/chills Eyes: Denies vision changes ENT: Denies neck stiffness, neck mass Endocrine: Denies polydipsia and polyuria Respiratory: Denies shortness of breath Cardiovascular: Denies chest pain and palpitations Gastrointestinal: Denies changes in bowel habits, blood in stool, constipation and diarrhea. Hematology: Denies easy bruising. Women Only: Denies breast masses, skin changes, nipple discharge, abnormal bleeding, pelvic pain and dyspareunia Genitourinary: Denies dysuria, pelvic pain and nocturia Skin: Denies rashes/lesions Neurologic: Denies headaches, dizziness, syncope Psychiatric: Denies hallucinations, suicidal ideas EXAM GENERAL EXAMINATION: Alert, oriented, well developed, well nourished. HEAD: Normocephalic, atraumatic. EYES: VERONICA, sclera anicteric. EARS: No obvious hearing deficit. NECK/THYROID: Neck supple no cervical lymphadenopathy no thyromegaly. LYMPH NODES: No axillary, supraclavicular or inguinal adenopathy. SKIN: Warm and dry. No rashes HEART: Regular rate and rhythm. No murmur LUNGS: Clear to auscultation bilaterally. CHEST: Axillary nodes grossly normal. BREASTS: No dominant masses palpable bilaterally, no skin changes, nipple discharge, supra-clavicular or axillary adenopathy ABDOMEN: Soft, nontender, nondistended, no hernia or masses palpable. BACK: No obvious scoliosis/kyphosis. FEMALE GENITOURINARY: Housing Inspector in room-EFG without sores/lesions, normal vaginal mucosa-no discharge, cervix and uterus surgically absent, no adnexal masses, cul-de-sac negative. EXTREMITIES No edema. NEUROLOGIC: Alert and oriented. PSYCH: Cooperative with exam. ICD-10-CM 1. Encounter for gynecological examination with abnormal finding Z01.411 2. LGSIL Pap smear of vagina R87.622 SENDOUT TEST MISCELLANEOUS [facility] 3. Special screening for malignant neoplasms, vagina Z12.72 SENDOUT TEST MISCELLANEOUS [facility] 4. Encounter for screening mammogram for malignant neoplasm of breast Z12.31 Bilateral screening mammogram with tomosynthesis 5. Colon cancer screening Z12.11 Ambulatory referral to Gastroenterology CANCELED: Ambulatory referral to Gastroenterology 6. Atypical squamous cell changes of undetermined significance (ASCUS) on vaginal cytology R87.620 SENDOUT TEST MISCELLANEOUS [facility] Advised pt to perform monthly self breast exams. Encouraged calcium and Vitamin D intake. Pap obtained. Mammogram due at the end of the month, order sent. Discussed importance of colon cancer screening. Will send referral for screening colonoscopy. Denies hot flashes or vaginal dryness. She iwill return in 6 months for a repeat pap. Entered by Ellie Chacon LPN acting as scribe for Dr. Elizabeth Flowers. Signature: Ellie Chacon LPN The documentation recorded by the scribe accurately reflects the service(s) I personally performed and the decisions I made. Signature: Elizabeth Flowers DO Assessment & Plan documented in this encounterBoone Hospital CenterGixjkgyweh54-44-8773 Evaluation note* Encounter Date Diagnosis Assessment Notes Treatment Notes Treatment Clinical Notes Apr, Overweight (ICD-10 - E66.3) [employer] Other 12-28-2023 Evaluation note* Encounter Date Diagnosis Assessment Notes Treatment Notes Treatment Clinical Notes Mar, Overweight (ICD-10 - E66.3) Stay on Ozempic at current dose, continue working on lifestyle treatment as we have discussed in the past. Mar,eneralized anxiety disorder (ICD-10 - F41.1)Increase venlafaxine up to 225 mg daily. Strongly encouraged counseling, she will call me if she needs my assistance arranging this. Recheck in 8 weeks, sooner if problems [employer] Other 11-17-2023 Evaluation note* Encounter Date Diagnosis Assessment Notes Treatment Notes Treatment Clinical Notes Feb, Overweight (ICD-10 - E66.3) [employer] Other 11-16-2023 Evaluation note* Encounter Date Diagnosis Assessment Notes Treatment Notes Treatment Clinical Notes Feb, Overweight (ICD-10 - E66.3) We discussed medication options for weight loss. I advised we start with screening labs to ensure there is no underlying medical condition that might be contributing to this. If labs are negative, then I advised a trial of Wegovy 0.25 mg weekly x4 weeks, then recheck with me. Potential medication side effects reviewed including abdominal pain, nausea, vomiting, pancreatitis. She voices understanding. Call if problems arise Feb,ody mass index [BMI] 28.0-28.9, adult (ICD-10 - Z68.28) Feb,Screening for cardiovascular condition (ICD-10 - Z13.6) [employer] Other 01-11-2023 Evaluation note* Encounter Date Diagnosis Assessment Notes Treatment Notes Treatment Clinical Notes Apr, Other closed fractur e of distal end of right fibula with routine healing, subsequent encounter (ICD-10 - S82.831D) Apr,nterior tibialis tendinitis of right lower extremity (ICD-10 - M76.811) Apr,OtherOverall patient has done great healing this fracture. I think that she has some soft tissue stuff anteriorly that is still healing and she is still recovering from the healing process. This point shecan continue still all activities as tolerated. She can call me in the future if she has any issues. [employer] Other 12-20-2022 Evaluation note* Encounter Date Diagnosis Assessment Notes Treatment Notes Treatment Clinical Notes Mar, Preoperative examination (ICD-10 - Z01.818) Her chronic medical problems appear well controlled. Okay to proceed with surgery as scheduled. Follow-up with me should any postoperative complications arise [employer] Other 11-30-2022 Evaluation note* Encounter Date Diagnosis Assessment Notes Treatment Notes Treatment Clinical Notes Feb, Other closed fractur e of distal end of right fibula with routine healing, subsequent encounter (ICD-10 - S82.831D) Feb,nterior tibialis tendinitis of right lower extremity (ICD-10 - M76.811) Feb,therOverall patient is continue to progress. The anterior tibial tendinitis seems to have resolved especially with Voltaren gel and home exercises. At this point she can continue increasing activities astolerated. I will plan to see her back in 4 weeks with repeat x-rays. [employer] Other 11-02-2022 Evaluation note* Encounter Date Diagnosis Assessment Notes Treatment Notes Treatment Clinical Notes Feb, Other closed fractur e of distal end of right fibula with routine healing, subsequent encounter (ICD-10 - S82.831D) Feb,nterior tibialis tendinitis of right lower extremity (ICD-10 - M76.811) Feb,therI do long discussion with the patient and explained to her that overall I think her x-rays look good and are showing signs of healing. Her exam is concerning for possibly some synovitis anteriorly and even anterior tibialis tendinitis. At this point we will prescribe her some Voltaren gel to rub on there for 5 times a day and get her into physical therapy. She can still use the cam walker boot ortransition to a shoe whichever makes her more comfortable. I will plan to see her back in 4 weeks with repeat x-rays. [employer] Other 10-20-2022 Evaluation note* Encounter Date Diagnosis Assessment Notes Treatment Notes Treatment Clinical Notes Jan, Other closed fractur e of distal end of right fibula with routine healing, subsequent encounter (ICD-10 - S82.831D) Jan,therI do long discussion with the patient today regarding her x-ray findings. I explained to her that Erik appreciate any changes in the alignment I still feel this is a stable fracture pattern. I do notappreciate much healing either. Nonetheless we will continue with our supportive care of the ankle with either a short leg cast or cam walker boot. We discussed both options today. Ultimately decidedon a cam walker boot. We also discussed at length her pain medication regimen. I instructed her to take her ibuprofen and Tylenol pretty much scheduled and then use her oxycodone as a rescue pain medication. Provided her with another 20 tablets of oxycodone. I will see her in 2 weeks with repeat x-rays. [employer] Other 10-05-2022 Evaluation note* Encounter Date Diagnosis Assessment Notes Treatment Notes Treatment Clinical Notes Jan, Closed displaced fra cture of lateral malleolus of right fibula, initial encounter (ICD-10 - S82.61XA) Patient is in need of a knee scooter due to their diagnosis of right ankle fracture. This is neededfor aid in activities of daily living by increasing safety and stability. This will be needed for approximately 12 weeks. Jan,ight ankle injury (ICD-10 - S99.911A) Jan,therI had a long discussion with the patient regarding her injury as well as x-ray findings. I explained to her that with the gravity stress view I was not able to appreciate any widening but it was alsoa poor image. As a result I recommended the manual stress view. I did perform a manual stress view in the x-ray suite today. Patient tolerated this well. My interpretation of these x-rays suggest that there is no widening of the medial clear space. This suggest that this Dc B ankle fracture is stable. I explained this to the patient and her . I gave her the option of using a cam walker boot and weightbearing as tolerated versus a cast for 4 weeks and then weightbearing as tolerated in the cam walking boot. Her suggested a cast because he feels like his will do more than she should too soon. As a result she was placed into a right short leg cast. She tolerated this well. I will plan to see her back in 4 weeks with three-view ankle x-rays on the right out of the cast. If she is doing well and x-rays still look good then we can place her into a cam walker boot and allow her to start weightbearing as tolerated. From now until that follow-up she is going to be essentially nonweightbearing. I did prescribe her a prescription for oxycodone and recommended elevation andTylenol as needed as well. [employer] Other 09-01-2022 Evaluation note* Encounter Date Diagnosis Assessment Notes Treatment Notes Treatment Clinical Notes Dec, Preoperative examination (ICD-10 - Z01.818) Her exam is unremarkable. Her risk of perioperative complications is low, okay to proceed with podiatric surgery as planned. I advised her to discontinue aspirin 1 week before surgery. I will be happy to see her postoperatively should any problems arise. [employer] Other 06-22-2022 Evaluation note* Encounter Date Diagnosis Assessment Notes Treatment Notes Treatment Clinical Notes Sep, Painful skin lesion (ICD-10 - L9 8.9) Home care reviewed. Recheck as needed [employer] Other 06-15-2022 Evaluation note* Encounter Date Diagnosis Assessment Notes Treatment Notes Treatment Clinical Notes Sep, Panic attacks (ICD-10 - F41.0) [employer] Other 05-26-2022 Evaluation note* Encounter Date Diagnosis Assessment Notes Treatment Notes Treatment Clinical Notes August, Painful skin lesion (ICD-10 - L9 8.9) I advised she return and we will excise the lesion. [employer] Other 03-07-2022 Evaluation note* Encounter Date Diagnosis Assessment Notes Treatment Notes Treatment Clinical Notes Jun, Panic attacks (ICD-10 - F41.0) [employer] Other 02-10-2022 NoteEXAM: SCREENING BILATERAL MAMMOGRAM PROCEDURE: CC and MLO views of both breasts were performed, comparison made to the prior exam of June 30, 2017 and May 26, 2020 CLINICAL HISTORY: Screening Mammogram COMPARISON: None available. TECHNIQUE: 2D and 3D Tomosynthesis of the right and left breasts was performed. FINDINGS: There are scattered fibroglandular densities within each breast. There are no suspicious masses, areas of suspicious microcalcifications or areas of architectural distortion identified. No evidence of skin thickening. IMPRESSION: BIRADS 2 : BENIGN FINDINGS, NORMAL INTERVAL FOLLOW UP. Board certified radiologist. Accredited by the ACR and FDA. MAMMOGRAPHY IS VERY IMPORTANT TO YOUR HEALTH. CURRENT [employer] GUIDELINES RECOMMENDS ANNUAL MAMMOGRAPHY BEGINNING AT AGE 40. THIS FACILITY USUALLY USES A REMINDER SYSTEM TO ENSURE ALL POSITIONS RECEIVED REMINDER NOTIFICATIONS AT THE TIME BASED ON THE RECOMMENDATIONS OF THIS EXAM. Report reported and signed by Nicol Ramos on 05/28/2021 [address]10-20-2021 Evaluation note* Encounter Date Diagnosis Assessment Notes Treatment Notes Treatment Clinical Notes Jan, Costochondritis (ICD-10 - M94.0) Increase ibuprofen to 600 mg 2-3 times daily, asked her to do this for 1 to 2 weeks, contact me if symptoms do not fully resolve. Supportive care reviewed. [employer] Other 07-01-2018 History general Narrative - Reported* Type Description Date Medical History anemia Medical HistoryendometriosisSurgical Historycervical [id number] HistoryTL [id number] Historyabd lap for clip [id number] History hysterectomy/2018Surgical Historyright carpel tunnel/2019Hospitalization Historysee above [employer] Other 07-01-2018 History general Narrative - Reported* Type Description Date Medical History anemia Medical HistoryendometriosisSurgical Historycervical [id number] HistoryTL [id number] Historyabd lap for clip [id number] History hysterectomy/2018Surgical Historyright carpel tunnel5/2020Surgical Historyleft foot surgery01/06/22Hospitalization Historysee above [employer] Other Evaluation + Plan note No data available for this section [facility] noteNo assessment information available [facility] Work Phone: Evaluation noteNo InformationNort boolino Other Evaluation note* Diagnosis Onset Date Resolution Status Anxiety acute [facility] Work Phone: Evaluation note* Diagnosis Encounter for gynecological examination with abnormal finding- Primary LGSIL Pap smear of vagina Papanicolaou smear of vagina with low grade squamous intraepithelial lesion (LGSIL) Special screening for malignant neoplasms, vagina Encounter for screening mammogram for malignant neoplasm of breast Colon cancer screening Special screening for malignant neoplasms, colon Atypical squamous cell changes of undetermined significance (ASCUS) on vaginal cytology documented in this encounter [facility] HealthcareEvaluation note* Diagnosis Colon cancer screening Special screening for malignant neoplasms, colon documented in this encounter [facility] HealthcareEvaluation [facility]* Diagnosis Post-op pain- Primary Other acute postoperative pain documented in this encounter [facility] Discharge instructions No data available for this section [facility]* Name Dates Details Instructions not documented [facility] Work Phone: progress note No data available for this section [facility] ShawReason for referral (narrative)* Consultation (Routine) - Pending ReviewSpecialtyDiagnoses / ProceduresReferred By Contact Referred To ContactGeneral Surgery Diagnoses Colon cancer screening Procedures SC OFFICE/OUTPATIENT [facility] MDM 60 MINUTES Elizabeth Flowers DO [address] [facility] [address] [place] [address] Faraz Renee DO [address] [facility] [address] [place] [address] Referral IDStatusReasonStart DateExpiration DateVisits RequestedVisits [id number] Review Specialty Services Required / [facility] for visit Narrative* Auth/CertSpecialtyDiagnoses / ProceduresReferred By ContactReferred To Contact Diagnoses 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, left Hammer toe of left foot Osteonecrosis of left foot due to previous trauma (HCC) Procedures SC CORRJ HLX VLGS BNCTY SESMDC W/DOUBLE OSTEOTOMY SC OSTEOT W/WO LNGTH SHRT/CORRJ METAR XCP 1ST EA SC PRTL EXC B1 TARSAL/METAR B1 XCP TALUS/CALCANEUS SC CORRECTION HAMMERTOE SC TX OPEN TENDON FLEXOR TOE 1 TENDON SPX SC GASTROCNEMIUS RECESSION FOOT BUNIONECTOMY Gilberto Carrillo, DPM [address] [place] [address] Phone: tel: fax: [facility] [address] [place] [address] Referral IDStatusReasonStart DateExpiration DateVisits RequestedVisits [id number] [facility] Summary Purpose Family History No Family History Records Found Relationship Condition Age at Onset Recorded Date/T eloina father Heart disease Unknown family memberDeceasedUnknownNot SpecifiedHeart diseaseUnknown Relationship Condition Age at Onset Recorded Date/T eloina father Heart disease Unknown family memberDeceasedUnknownmotherHeart diseaseUnknown Advance Directives No Advanced Directives Records Found Advance Directive Response Recorded Date/ Time Advance Directives No January 28, 2017 1:18pm Advance Directive Response Recorded Date/ Time Advance Directives No January 28, 2017 12:18pm Date ActivatedDate InactivatedComments07/08/2020 11:53 AM3 2:57 PMDate ActivatedDate InactivatedComments07/08/2020 11:53 AM3 2:57 PM History of Present Illness * Oumou Nolasco APRN - CNP - 07/01/2020 3:00 PM EDT No show for PAT appointment -- spoke to patient & stated she was unaware of appointment -- Notified Dr. Peres office ( Samantha ) & OR atmospheric chemist ( Yoli ). documented in this encounter Chief Complaint and Reason for Visit Chief Complaint M77.52;M76.72;M20.62 ;M72.2 Chief Complaint M77.52;M76.72;M20.62 ;M72.2 rt ankle inj, fell @ home 10-1-22 Chief Complaint M77.52;M76.72;M20.62 ;M72.2 rt ankle inj, fell @ home 01-16-22 S99.911A Chief Complaint M77.52;M76.72;M20.62 ;M72.2 rt ankle inj, fell @ home 01-16-22 S99.911A S82.831D Chief Complaint M77.52;M76.72;M20.62 ;M72.2 rt ankle inj, fell @ home 01-16-22 S99.911A S82.831D S83.831D Right fibula fx Chief Complaint S82.831D S83.831D Right fibula fx S82.831D Chief Complaint Z13.6 Chief Complaint 2 month follow up Cough, Ear painReason for VisitAnxiety Chief Complaint med review Chief Complaint Admit Date med follow up March 12, 2024 8:36am OP SP RT ANKLE PAIN PREV TIB FX 2021 8:29am M25.571 - Pain in right ankle and joints of right March 30, 2024 8:32am m87.275 May 07, 2024 8 :53am Reason for Visit Admit Date Anxiety and depression March 12 8:36am PTSD (post-traumatic stress disorder) No vember 2023 8:36am Left foot pain March 30, 2024 8:29am Chief Complaint Admit Date OP SP RT ANKLE PAIN PREV TIB FX 2021 8:29am M25.571 - Pain in right ankle and joints of right March 30, 2024 8:32am m87.275 May 07, 2024 8 :53am L arm bite June 19, 2024 11:5 5am Reason for Visit Admit Date Left foot pain March 30, 2024 8:29am Chief Complaint Admit Date OP SP RT ANKLE PAIN PREV TIB FX 2021 8:29am M25.571 - Pain in right ankle and joints of right March 30, 2024 8:32am m87.275 May 07, 2024 8 :53am L arm bite June 19, 2024 11:5 5am Amb Documentation June 20, 2024 9:59 am ER f/u check stitches L arm June 22 11:10am Chief Complaint Admit Date OP SP RT ANKLE PAIN PREV TIB FX 2021 Dec ember 2023 8:29am M25.571 - Pain in right ankle and joints of right March 30, 2024 8:32am m87.275 May 07, 2024 8 :53am L arm bite June 19, 2024 11:5 5am Amb Documentation June 20, 2024 9:59 am ER f/u check stitches L arm June 22 11:10am f/u June 25, 2024 11: 24am Reason for Visit Admit Date Left foot pain March 30, 2024 8:29am Dog bite June 22, 2024 11:1 0am Chief Complaint Admit Date m87.275 May 07, 2024 8 :53am L arm bite June 19, 2024 11:5 5am Amb Documentation June 20, 2024 9:59 am ER f/u check stitches L arm June 22 11:10am f/u June 25, 2024 11: 24am check up July 20, 2024 8:42 am Reason for Visit Admit Date Dog bite June 22, 2024 11:1 0am Dog bite June 25, 2024 11: 24am Chief Complaint Admit Date L arm bite June 19, 2024 11:5 5am Amb Documentation June 20, 2024 9:59 am ER f/u check stitches L arm June 22 11:10am f/u June 25, 2024 11: 24am check up July 20, 2024 8:42 am semaglutide refill 2024 8:46a m Reason for Visit Admit Date Dog bite June 22, 2024 11:1 0am Dog bite June 25, 2024 11: 24am BMI 25.0-25.9,adult July 20, 2024 8:42 am Additional Source Comments INFORMATION SOURCE (unrecogn ized section and content) DATE CREATED AUTHOR 04/27/2019 [facility] DATE CREATED AUTHOR AUTHOR'S ORGANIZ ATION 07/08/2020 [facility] DATE CREATED AUTHOR AUTHOR'S ORGANIZ ATION 07/09/2020 [facility] DATE CREATED AUTHOR AUTHOR'S ORGANIZ ATION 07/17/2020 [email or web address] DATE CREATED AUTHOR AUTHOR'S ORGANIZ ATION 09/08/2020 [facility] DATE CREATED AUTHOR AUTHOR'S ORGANIZ ATION 05/29/2021 [facility] DATE CREATED AUTHOR AUTHOR'S ORGANIZ ATION 06/05/2021 [facility] DATE CREATED AUTHOR AUTHOR'S ORGANIZ ATION 01/17/2022 [facility] DATE CREATED AUTHOR AUTHOR'S ORGANIZ ATION 07/02/2024 [facility] DATE CREATED AUTHOR AUTHOR'S ORGANIZ ATION 10/09/2024 [facility] DATE CREATED AUTHOR AUTHOR'S ORGANIZ ATION 02/17/2025 [facility] EPIC REASON FOR VISIT (unrecogniz ed section and content) ReasonCommentsGynecologic ExamYearly , Pt 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 LMP: Hysterectomy Last pap: 4ReasonCommentsConsult colonoscopySpecialtyDiagnoses / ProceduresReferred By ContactReferred To Contact General Surgery Diagnoses Colon cancer screening Procedures SC OFFICE/OUTPATIENT [facility] 60 MINUTES Elizabeth Flowers, [address] [address] [place] [address] Phone: tel: fax: Faraz Renee, DO [address] [facility] [address] [place] [address] Phone: tel: fax: Referral IDStatusReasonStart DateExpiration DateVisits RequestedVisits [id number] Specialty Services Required / Care Teams (unrecognized sec tion and content) Team Status: Inactive Member Role Status Dates Gama Mast , DO Primary Care Provider Active Sarah Hidalgo ProviderActive Team Status: Active Member Role Status Dates Gama Mast , DO Primary Care Provider Active Team Status: Inactive Member Role Status Dates Gama Mast , DO Primary Care Provider Active Anam Graham ProviderActive Team Status: Inactive Member Role Status Dates Gama Mast , DO Primary Care Provider Active Fermin Ramírez II, MDAttending ProviderActive Team Status: Inactive Member Role Status Dates Gama Mast , DO Primary Care Provider, Attending Provid er Active Team Status: Inactive Member Role Status Dates Gama Mast , DO Primary Care Provide r, Attending Provider Active Start: June 20, 2023 End: June 20, 2023 Team Status: Inactive Member Role Status Dates Gama Mast , DO Primary Care Provide r, Attending Provider Active Start: July 25, 2023 End: July 25, 2023 Team Status: Inactive Member Role Status Dates Gama Mast , DO Primary Care Provide r, Attending Provider Active Start: January 06, 2024 End: January 06, 2024Team MemberRelationshipSpecialtyStart DateEnd Date Gama East MD [address] [place] [phone] PCP [facility]09/21/22Team MemberRelationshipSpecialtyStart DateEnd Date Gama East MD [address] [place] [address] PCP [facility]09/21/22Team MemberRelationshipSpecialtyStart DateEnd Date Gama East MD [address] [place] [address] PCP [facility]09/21/22 Team Status: Inactive Member Role Status Dates Gama Mast , DO Primary Care Provide r, Attending Provider Active Start: March 12, 2024 End: March 12, 2024 Team Status: Inactive Member Role Status Dates Gama Mast , DO Primary Care Provider Active Star t: March 30, 2024 End: March 30adolfo Ramírez II, MDAttending ProviderActiveStart: March 30, 2024 End: March 30, 2024 Team Status: Inactive Member Role Status Dates Gama Mast , DO Primary Care Provider Active Star t: May 07, 2024 End: May 07, 2024Raoul Burt DPM MSAttending ProviderActiveStart: May 07, 2024 End: May 07, 2024 Team Status: Inactive Member Role Status Dates Gama Mast , DO Primary Care Provider Active Star t: June 19, 2024 End: June 19, 2024Jaimee Ivey ProviderActiveStart: June 19, 2024 End: June 19, 2024 Team Status: Active Member Role Status Dates Gama Mast , DO Primary Care Provider Active Star t: June 20, 2024 Romel Hernández ProviderActiveStart: June 20, 2024 Team Status: Inactive Member Role Status Dates Gama Mast , DO Primary Care Provide r, Attending Provider Active Start: June 22, 2024 End: June 22, 2024 Team Status: Inactive Member Role Status Dates Gama Mast , DO Primary Care Provide r, Attending Provider Active Start: June 25, 2024 End: June 25, 2024 Team Status: Inactive Member Role Status Dates Gama Mast , DO Primary Care Provide r, Attending Provider Active Start: July 20, 2024 End: July 20, 2024Team MemberRelationshipSpecialtyStart DateEnd Date Sahra Donato MD [address] [place] [address] PCP - GeneralInternal Medicine07/07/20 Team Status: Inactive Member Role Status Dates Agma Mast , DO Primary Care Provide r, Attending Provider Active Start: 2024 End: September 17, 2024Team MemberRelationshipSpecialtyStart DateEnd Date Sahra Donato MD [address] [place] [address] PCP - GeneralInternal Medicine07/07/20 Goals (unrecognized section and content) Goals may be documented in a n alternate section Ordered Prescriptions (unrec ognized section and content) PrescriptionSigDispense QuantityRefillsLast FilledStart DateEnd Date oxyCODONE-acetaminophen (PERCOCET) 5-325 MG per tablet Indications:Post-op painTake 1 tablet by mouth every 6 hours as needed for Pain for up to 5 days. Intended supply: 5 days. Take lowest dose possible to manage pain Max Daily Amount: 4 tablets 20 tablet / tiZANidine (ZANAFLEX) 2 MG tablet Take 1 tablet by mouth every 6 hours as needed (as needed) 30 tablet 10/08/2024 Scheduled Active and Recently Administ ered Medications (unrecognized section and content) Medication Order/ aprepitant (EMEND) capsule 40 mg (COMPLETED) 40 mg, Oral, ONCE, 1 dose, On Tue10/08/24 at 1100, Pre-op (day of surgery) * 1139 (Given - Provider: Liliana Moss RN) ceFAZolin (ANCEF) 2000 mg in 20 mL IV syringe (COMPLETED) 2,000 mg, IntraVENous, ONCE, On Tue10/08/24 at 1130, For 1 dose, Administer over 5 mins., STAT * 1307 (Given - Provider: Darlene Espinoza APRN - RADIOSONDE OPERATOR) midazolam PF (VERSED) injection 2 mg 2 mg, IntraVENous, ONCE, 1 dose, On Tue10/08/24 at 1130, Pre-op (day of surgery) * 1130 (Due) promethazine (PHENERGAN) tablet 12.5 mg (COMPLETED) 12.5 mg, Oral, ONCE, 1 dose, On Tue10/08/24 at 1100, Pre-op (day of surgery) * 1139 (Given - Provider: Liliana Moss RN) scopolamine (TRANSDERM-SCOP) transdermal patch 1 patch 1 patch, TransDERmal, Administer over 72 Hours, ONCE, On Tue10/08/24 at 1100, For 1 dose, Delivers 1 mg over 3 days. Apply patch to hairless area behind the ear. Do NOT cut patch., Pre-op (day of surgery) * 1140 (Patch Applied - Provider: Liliana Moss RN - Comment: right ear) sodium chloride flush 0.9 % injection 5-40 mL 5-40 mL, IntraVENous, EVERY 12 HOURS SCHEDULED (2 times per day), First dose on Tue10/08/24 at 1100, Until Discontinued, For Line Patency: Peripheral IV = 5 mL; Midline or Central Line = 10 mL/lumen.If following IV push medication, administer flush at same rate as the IV push. Flush volume is determined by type of infusion therapy being given. For non-viscous solutions use: Peripheral IV = 5 mL Midline or Central Line = 10 mL/lumen For viscous solutions (i.e. blood components, parenteral nutrition, contrast media, or after obtaining blood sample) use: Peripheral IV = 10 mL Midline or CentralLine = 20 mL/lumen, Pre-op (day of surgery) * 1100 (Due) * 2100 (Due) sodium chloride flush 0.9 % injection 5-40 mL 5-40 mL, IntraVENous, EVERY 12 HOURS SCHEDULED (2 times per day), First dose on Tue10/08/24 at 2100, Until Discontinued, For Line Patency: Peripheral IV = 5 mL; Midline or Central Line = 10 mL/lumen.If following IV push medication, administer flush at same rate as the IV push. Flush volume is determined by type of infusion therapy being given. For non-viscous solutions use: Peripheral IV = 5 mL Midline or Central Line = 10 mL/lumen For viscous solutions (i.e. blood components, parenteral nutrition, contrast media, or after obtaining blood sample) use: Peripheral IV = 10 mL Midline or CentralLine = 20 mL/lumen, PACU only * 2100 (Due) Medication Order// 0.9 % sodium chloride infusion IntraVENous, at 125 mL/hr, CONTINUOUS, Starting on Tue10/08/24 at 1100, Pre-op (day of surgery) * 1100 (Due) lactated ringers infusion IntraVENous, at 125 mL/hr, CONTINUOUS, Starting on Tue10/08/24 at 1100, Pre-op (day of surgery) * 1114 (New Bag - Provider: Liliana Moss RN) * 1258 (NoRateChange - Provider: PARAM Vaz CRNA) * 1258 (Paused - Provider: PARAM Vaz CRNA - Comment: Switch to gravity) * 1259 (Restarted - Provider: PARAM Vaz CRNA) * 1505 (New Bag - Provider: PARAM Vaz CRNA) * 1701 (Anesthesia Volume Adjustment - Provider: PARAM Vaz CRNA) Medication Order// 0.9 % sodium chloride infusion IntraVENous, at 5-250 mL/hr, PRN, if patient receiving piggyback infusions and maintenance fluids are not ordered OR KVO fluids to protect IV site / prevent frequent line interruptions/ long duration, Starting on Tue10/08/24 at 1040, For piggyback infusion, administer at same rate as piggyback for a total of 25 mL. Enter 25 mL into dose field and piggyback rate into rate field of order. If piggyback is infusing at a rate less than 100 mL/hr, enter 25 mL into dose field and 100 mL/hr into rate field of order. For KVO fluids, enter rate of 20 mL/hr or less into rate field of order., Pre-op (dayof surgery) 0.9 % sodium chloride infusion IntraVENous, at 5-250 mL/hr, PRN, if patient receiving piggyback infusions and maintenance fluids are not ordered OR KVO fluids to protect IV site / prevent frequent line interruptions/ long duration, Starting on Tue10/08/24 at 1653, For piggyback infusion, administer at same rate as piggyback for a total of 25 mL. Enter 25 mL into dose field and piggyback rate into rate field of order. If piggyback is infusing at a rate less than 100 mL/hr, enter 25 mL into dose field and 100 mL/hr into rate field of order. For KVO fluids, enter rate of 20 mL/hr or less into rate field of order., PACU only fentaNYL (SUBLIMAZE) injection 25 mcg 25 mcg, IntraVENous, EVERY 5 MIN PRN, 4 doses, Starting on Tue10/08/24 at 1653, Until Discontinued,Pain Moderate (4-6), allowed for higher pain score per patient request, Phase I - Initial therapy for moderate pain., PACU only HYDROmorphone HCl PF (DILAUDID) injection 0.5 mg 0.5 mg, IntraVENous, EVERY 5 MIN PRN, 4 doses, Starting on Tue10/08/24 at 1653, Until Discontinued,Pain Severe (7-10), Phase I - Initial therapy for severe pain., PACU only lidocaine PF 1 % injection 1 mL 1 mL, IntraDERmal, ONCE PRN, 1 dose, Starting on Tue10/09/24 at 0000, Until Discontinued, IV start,Pre-op (day of surgery) metoclopramide (REGLAN) injection 10 mg 10 mg, IntraVENous, ONCE PRN, 1 dose, Starting on Tue10/08/24 at 1653, Until Discontinued, Nausea, Secondary antiemetic therapy., PACU only naloxone 0.4 mg in 10 mL sodium chloride syringe IntraVENous, PRN, Opioid Reversal, Starting on Tue10/08/24 at 1653, PRN if respiratory rate is lessthan 6/min and patient is difficult to arouse then notify physician STAT. Mix 9 mL of sodium chloride 0.9% with 0.4 mg (1 mL) of naloxone (NARCAN) in 10 mL syringe. (Note: dilution is 0.04 mg/mL) Give 0.08 mg (2 mL of special dilution), slow IV push, repeat up to 0.4 mg (10 mL) or until patient is responsive to physical stimulation and respiratory rate is equal to or greater than 6 breaths/min. Continue to observe, if no response within 3 minutes of administration of 0.4 mg (10 mL) total, repeat dose (0.4 mg as administered previously). Concentration 0.04 mg/mL, PACU only ondansetron (ZOFRAN) injection 4 mg 4 mg, IntraVENous, ONCE PRN, 1 dose, Starting on Tue10/08/24 at 1653, Until Discontinued, Nausea, Initial antiemetic therapy., PACU only oxyCODONE (ROXICODONE) immediate release tablet 5 mg 5 mg, Oral, ONCE PRN, 1 dose, Starting on Tue10/08/24 at 1653, Until Discontinued, Pain Moderate (4-6), allowed for higher pain score per patient request, Pain Severe (7-10), PHASE II, PACU only sodium chloride flush 0.9 % injection 5-40 mL 5-40 mL, IntraVENous, PRN, Starting on Tue10/08/24 at 1040, Until Discontinued, Line Care, After every IV line use, For Line Patency: Peripheral IV = 5 mL; Midline or Central Line = 10 mL/lumen. If following IV push medication, administer flush at same rate as the IV push. Flush volume is determined by type of infusion therapy being given. For non-viscous solutions use: Peripheral IV = 5 mL Midline or Central Line = 10 mL/lumen For viscous solutions (i.e. blood components, parenteral nutrition,contrast media, or after obtaining blood sample) use: Peripheral IV = 10 mL Midline or Central Line= 20 mL/lumen, Pre-op (day of surgery) sodium chloride flush 0.9 % injection 5-40 mL 5-40 mL, IntraVENous, PRN, Starting on Tue10/08/24 at 1653, Until Discontinued, Line Care, After every IV line use, For Line Patency: Peripheral IV = 5 mL; Midline or Central Line = 10 mL/lumen. If following IV push medication, administer flush at same rate as the IV push. Flush volume is determined by type of infusion therapy being given. For non-viscous solutions use: Peripheral IV = 5 mL Midline or Central Line = 10 mL/lumen For viscous solutions (i.e. blood components, parenteral nutrition,contrast media, or after obtaining blood sample) use: Peripheral IV = 10 mL Midline or Central Line= 20 mL/lumen, PACU only FOR RECORDS PERTAINING TO PATIENTS WHO ARE OR HAVE BEEN ENROLLED IN A CHEMICAL DEPENDENCY/SUBSTANCEABUSE PROGRAM, SOME INFORMATION MAY BE OMITTED. This clinical summary was aggregated from multiple sources. Caution should be exercised in using it in the provision of clinical care. This summary normalizes information from multiple sources, and as a consequence, information in this document may materially change the coding, format and clinical context of patient data. In addition, data may be omitted in some cases. CLINICAL DECISIONS SHOULD BE BASED ON THE PRIMARY CLINICAL RECORDS. [employer] provides no warranty or guarantee of the accuracy or completeness of information in this document.
== END 2025-04-17 08:45 | disposition home or self-care (01) ==
LOC: CT 08:44
PROVIDERS: Visit Provider Podiatrist Foot & Ankle Surgery
DX: M20.22 Hallux rigidus, left foot (principal)
CPT/HCPCS: 73700; 76376